=== PATIENT | female | born 1990 | race Caucasian/White ===

== ENCOUNTER 2018-06-23 14:24 | Emergency (ER) | payer SELFPAY ==
[2018-06-23 14:25] VITALS: BP 160/75; PULSE 94; RESP 18; TEMP 36.6; O2SAT 100; BMI 38.6
--- NOTE | 2018-06-23 14:50 | RAD_ITS ---
STUDY: X-RAY - RIGHT KNEE REASON FOR EXAM: Female, 27 years old. Status post fall 3 days ago TECHNIQUE: 4 view(s) of the knee. COMPARISON: None. FINDINGS: Normal visualized distal femur. Normal visualized proximal tibia and fibula. Normal proximal tibiofibular articulation. Normal medial femorotibial compartment. Normal lateral femorotibial compartment. Normal patellofemoral articulation. There is mild soft tissue swelling medial knee. RAD/Knee 4 or More Views IMPRESSION: Mild soft tissue swelling no visualized fracture or joint effusion. Electronically Signed: Mary Arriaza MD at 15:29 EST Tel , Service support ,
--- NOTE | 2018-06-23 14:54 | ED.DCSUM_ITS ---
- ER Visit Summary Date of Service: 06/23/18 Chief Complaint: Fall and right knee injury History of Present Illness: The patient is a 27 F no significant past medical history. States that 3 days ago on Sunday she missed a step while carrying her 40 pound child and landed awkwardly on her right knee. Since that time has had knee pain. Denies any prior knee surgery or any significant prior knee history. She denies any other injuries. Did not hit her head. She denies any neck or back pain. Physical Examination:. She is in no distress. H EENT exam atraumatic. Pupils round reactive light. No tenderness to her scalp. C-spine and back are nontender. Normal range of motion to her neck. Trachea midline. Lungs clear to auscultation bilaterally. Heart regular rhythm no murmur. Abdomen is soft and nontender. Normal bowel sounds no peritoneal signs. Chest wall nontender. Pelvic girdle intact. Both upper extremities and left lower extremity is unremarkable. Right knee has an abrasion. Minimal swelling to the patella. No gross bony deformity. Full flexion-extension of the right knee is intact. ACL, PCL, MCL and LCL are intact. No significant knee effusion. Calves the right lower legs are nontender. Ankle nontender. Normal DP pulse. His toes tendon is intact. Dorsi plantar flexion intact. Foot nontender. Normal touch sensation. Able to wiggle her toes. Neurologic exam normal. Test Results: Right knee x-ray 3 views show shows no acute abnormality. Emergency Department Course and Treatment: Repeat exam doing well. Treatment Plan: Ice and elevate. Motrin for pain. Disposition: Discharge Impression: Tripped and fell down steps Acute right knee contusion This note was generated with [employer] dictation software. It may contain incorrect words, spelling, and punctuation that were not noted in review of the chart prior to signing ED Disposition - Plan for ED Patient: Chief Complaint: Lower Extremity Injury Referrals: Suzanne Kohli NP-C [Primary Care Provider] -
[2018-06-23 15:08] VITALS: BP 144/102; PULSE 77; RESP 18; O2SAT 100
--- NOTE | 2018-06-23 15:15 | ED.DEP ---
ED Disposition - Plan for ED Patient: Disposition: Home or Assisted Living Chief Complaint: Lower Extremity Injury Instructions: ED Contusion Lower Ext Referrals: Suzanne Kohli, TREASURY ASSISTANT-C [Primary Care Provider] - 1 Week if not improving Additional Instructions: Ice and elevate right knee. Motrin for pain and swelling. Call follow-up with your primary care provider if not improving for further evaluation.
[2018-06-23 15:20] VITALS: BP 118/74; PULSE 62; RESP 15; O2SAT 99
== END 2018-06-23 15:20 | disposition home or self-care (01) ==
PROVIDERS: Emergency Provider Emergency Medicine; Family Provider Nurse Practitioner Family; PCP Nurse Practitioner Family
DX: S80.01XA Contusion of right knee, initial encounter (principal); W10.9XXA Fall (on) (from) unspecified stairs and steps, initial encounter; Y93.89 Activity, other specified
CPT/HCPCS: 73562; 73564; 99282

== ENCOUNTER 2018-07-03 18:27 | Emergency (ER) | payer SELFPAY ==
[2018-07-03 18:29] VITALS: BP 163/91; PULSE 127; PULSE 132; RESP 18; TEMP 39.2; O2SAT 99; BMI 38.5
--- NOTE | 2018-07-03 18:48 | ED.VISSUMM ---
- ER Visit Summary Date of Service: 07/03/18 Chief Complaint: Cough History of Present Illness: The patient is a 27 F with no primary care physician. She reports that she had a sore throat and cough for the past 2 weeks. States that it had improved and now she was just congested and had rhinorrhea. However, today she became acutely ill. She has a nonproductive cough. He has had a fever to 102.5 degrees. She said chills and diffuse myalgias Patient reports that she has no shortness of breath at rest. However, when she walks she is short of breath. She reports that she has abdominal pain from coughing. She has been nauseated, but has not vomited. She had diarrhea for the past 2 days 3-4 times per day. No blood in her stools or black tarry stools. She has an aching headache behind her temples that is 6 out of 10 severity. She has had similar headaches in the past. Physical Examination: Vitals: 102.5, 163/91, 127, 18, 99% room air which is not hypoxic. General: Well-nourished and well-developed. Head: Normocephalic atraumatic. Neck: Supple, no lymphadenopathy. No JVD. Nontender. Cardiovascular: Tachycardic regular rhythm. No murmurs. Respiratory: No respiratory distress. Clear to auscultation bilaterally. Abdominal: Soft, nontender, nondistended, normal bowel sounds. No guarding, rebound, or peritoneal signs. Back: Nontender. Extremities: Nontender, no edema. Skin: Normal color, no rash. Neurologic: Alert and oriented ?3. Cranial nerves II through XII are intact. Normal strength and sensation. Psych: Normal affect. Test Results: Chest x-ray shows a focal infiltrate or atelectasis in the right upper lobe. Influenza was negative. Emergency Department Course and Treatment: Patient refused an IV. She was treated with Tylenol, ibuprofen, Tessalon Perles p.o. She is resting comfortably. Treatment Plan: I discussed the x-ray findings with the patient. She was given a dose of Zithromax here. She will be discharged on Zithromax and Tessalon Perles.. [facility] if not improving. Return to the emergency department for any worsening symptoms. Disposition: To home in improved and stable condition. Impression: 1. Pneumonia, community-acquired. This note was generated with [employer] dictation software. It may contain incorrect words, spelling, and punctuation that were not noted in review of the chart prior to signing ED Disposition - Plan for ED Patient: Chief Complaint: Fever Instructions: ED Pneumonia Adult Prescriptions: Azithromycin [Zithromax] 250 mg PO DAILY #4 tablet Benzonatate [Tessalon Perle] 200 mg PO TID PRN PRN #20 cap PRN Reason: Cough Referrals: Suzanne Kohli ART OBJECTS SUPERVISOR-C [Primary Care Provider] - 1 Week
[2018-07-03] MEDS: Acetaminophen 500 MG Tablet 1000 MG PO (18:55)
[2018-07-03] MEDS: Benzonatate 100 MG Capsule 200 MG PO (18:55)
[2018-07-03] MEDS: Ibuprofen 400 MG Tablet 800 MG PO (18:55)
--- NOTE | 2018-07-03 19:00 | RAD_ITS ---
STUDY: X-RAY CHEST REASON FOR EXAM: Female, 27 years old. Cough fever and chills TECHNIQUE: PA and lateral COMPARISON: December 15, 2015 FINDINGS: Focal infiltrate or atelectasis in the right upper lobe There is no demonstrated pleural abnormality. Normal size heart. Normal mediastinum and laya. Normal visualized pulmonary arteries. Normal visualized aortic arch and descending thoracic aorta. Normal visualized thoracic spine. Normal visualized ribs, clavicles, and shoulders. There is no demonstrated abnormality of the visualized soft tissue structures of the upper abdomen. RAD/Chest PA and Lateral IMPRESSION: Focal consolidation in right upper lobe which may be consistent with pneumonia Electronically Signed: Wilfred Mooney MD at 20:17 EST , Service support ,
[2018-07-03] MEDS: Azithromycin 250 MG Tablet 500 MG PO (20:32)
[2018-07-03 20:35] VITALS: BP 143/87; PULSE 93; RESP 18; O2SAT 98
--- OUTSIDE RECORDS SUMMARY | 2018-08-29 04:33 | XMS RPT_ITS | Clinical Summary ---
:1990 Author Organization [facility], [facility] Address [address] [place] [address] Phone Care Team Providers Name Role Phone Norma Norwood RN Unavailable Unavailable Conditions or Problems Problem Name Problem Onset Status Entry Provider Comment Standard Annotate Code Date Date Description Palpitations 04913015 Active Tevin Chilel Palpitations (SNOMED 01/03 01/03 [place], [place]) Dizziness 621142080 Active Tevin Chilel Dizziness and and (SNOMED 01/03 01/03 [place], giddiness giddiness CT) Chest pain 82826312 Active Tevin Chilel Chest pain other (SNOMED 12/30 12/30 [place], CT) Snoring 43284740 Active Tevin Chilel Snoring (SNOMED 01/03 01/03 [place], CT) Abnormal R94.31 Active Tevin Chilel Abnormal electrocardi (ICD-10-CM 01/03 01/03 [place], electrocardiogra ogram [ECG] ) m [ECG] [EKG] [EKG] Body mass Z68.36 Active Tevin Chilel Body mass index index (BMI) (ICD-10-CM 01/03 01/03 [place], (BMI) 36.0-36.9, 36.0-36.9, ) adult adult Hypertension 40232184 Active Norma A Hypertensive (SNOMED 12/30 12/[address]) Family Z82.49 Active Norma A Family history history of (ICD-10-CM 12/30 12/30 Enma BEAR of ischemic ischemic ) heart disease heart and other disease and diseases of the other circulatory diseases of system the circulatory system Shortness of 361464789 Active Norma A Dyspnea breath (SNOMED 12/30 12/[address]) Chest pain, 92041077 Inactive Norma A Chest pain unspecified (SNOMED 12/30 12/[address]) Medications Medication Instructions Start Stop Generic Name NDC Provider Date Date TOPROL XL 25 MG One half tablet / METOPROLOL [id number] Tevin Chilel [id number] by mouth daily SUCCINATE MD Kj PROPRANOLOL HCL One tablet by / PROPRANOLOL HCL [id number] Tevin Chilel 10 MG TABS mouth twice 31 MD Kj daily PROPRANOLOL HCL 1 tab three / PROPRANOLOL HCL 18422556639 Tevin Chilel 10 MG TABS twice a day 31 MD Kj IBUPROFEN 400 One tablet by / IBUPROFEN 59751717890 Tevin J MG TABS mouth twice 31 MD Kj daily for 7 days HYDROXYZINE HCL Two tablets by / HYDROXYZINE HCL 10611885591 Norma A Enma 25 MG TABS mouth three RN times daily as needed anxiety HYDROXYZINE HCL Two tablets by HYDROXYZINE HCL 40451840197 Tevin J 25 MG TABS mouth three MD Kj times daily as needed anxiety IBUPROFEN 400 .11 / IBUPROFEN 18910039957 Elizabeth M MG TABS MARIANELA Haywood IBUPROFEN 400 .11 IBUPROFEN 43115233147 Tevin J MG TABS MD Kj LOSARTAN One tablet by / LOSARTAN 38152423209 Norma A Enma POTASSIUM 25 MG mouth daily 27 POTASSIUM RN TABS LOSARTAN One tablet by LOSARTAN 89366626638 Tevin Chilel POTASSIUM 25 MG mouth daily POTASSIUM MD Kj TABS STOVER COLON One capsule by / PROBIOTIC PRODUCT 95576989964 Norma A Enma HEALTH CAPS mouth daily RN STOVER COLON One capsule by PROBIOTIC PRODUCT 00468453200 Tevin Chilel HEALTH CAPS mouth daily MD Kj PROPRANOLOL HCL One tablet by PROPRANOLOL HCL 84517276265 Tevin Chilel 10 MG TABS mouth twice MD Kj daily MIRENA (52 MG) insertion as / LEVONORGESTREL 31689366151 Norma A Enma 20 MCG/24HR IUD directed 27 RN SERTRALINE HCL One tablet by / SERTRALINE HCL 91192915472 Norma A Enma 50 MG TABS mouth daily 27 RN ZOFRAN 4 MG Take 1 tablet / ONDANSETRON HCL 43770774102 Yeni E TABS PO q4h PO as 17 [place] needed STOVER COLON One tablet by / PROBIOTIC PRODUCT 93902193723 Yeni E HEALTH CAPS mouth daily 17 [place] VENTOLIN HFA INH 2 puffs q4h / ALBUTEROL SULFATE 97803432739 Yeni E 108 (90 Base) 17 [place] MCG/ACT AERS Medications Administered No information available. Allergies, Adverse Reactions, Alerts Allergy Name Reaction Description Start Date Severity Status Provider CEPHALEXIN terry Severe Active Norma James Enma RN Results Date Name Value Unit Range Flag Description Clinical Lists Update: Preload PLATELETS 301 10*3/mm3 platelet count RDW 13.7 % red blood cell distribution width MCHC RBC 32.5 g/dL mean corpuscular hemoglobin concentration, RBC MCH 26.9 pg mean corpuscular hemoglobin, RBC MCV 82.8 fL mean corpuscular volume, RBC HCT 42.0 % hematocrit, blood HGB 13.6 g/dL hemoglobin, blood RBC M/UL 5.07 10*6/uL H red blood count WBC BLOOD 9.2 10*9/L leukocyte (white blood cells) count, blood GFR AA >60 mL/min/1.73m2 Glomerular Filtration Rate GFRC >60 mL/min/1.73m2 Glomerular Filtration Rate Calculation A G RATIO 1.5 A/G RATIO GLOBULIN 3.1 globulin, serum SGOT (AST) 14 U/L L aspartate aminotransferase (SGOT), serum SGPT (ALT) 28 U/L alanine aminotransferase (SGPT), serum ALK PHOS 85 U/L alkaline phosphatase, serum BILI TOTAL 0.40 mg/dL bilirubin, serum, total ALBUMIN 4.5 g/dL albumin, serum PROTEIN, TOT 7.6 g/dL protein, total, serum GLUCOSE SER 81 mg/dL blood glucose CALCIUM 9.4 mg/dL calcium, serum BUN/CREAT 12.2 urea nitrogen/creatinine ratio, serum CREATININE 0.74 mg/dL creatinine, serum BUN 9 mg/dL urea nitrogen, blood ANION GAP 9.8 anion gap, serum CO2 27.2 mmol/L carbon dioxide, venous blood CHLORIDE 103 mmol/L chloride, serum POTASSIUM 3.9 mmol/L potassium, serum SODIUM 140 mmol/L sodium, serum Office Visit DIET CORPORATE SPECIALIST yes Dietary management education, guidance, and counseling (procedure) MEDS REVIEW Done Documentation of current medications (procedure) SMOK STATUS Former smoker Tobacco use [facility] Clinical Lists Update: Preload CARDEFECHO 65 % Left ventricular Ejection fraction Plan of Care Type Date Detail Appointment 01:15 PM Tevin Underwood MD, [address] [facility], [address], [place], [address], Pending order Follow Up Appt 1 year Pending order DJN Pending order Pulmonary Function Test - complete Pending order Pulmonary Function Test - complete Pending order Follow Up BP Check Pending order Follow Up Appt 1 month Pending order DJN Pending order Echocardiogram (complete) Pending order Stress Echocardiogram (treadmill) Procedures Code Procedure Name Date Entry Date FUA 1 year Follow Up Appt 1 year F/U DJN DJN F/U BP Follow Up BP Check Echo Echocardiogram (complete) SET Stress Echocardiogram (treadmill) FUA 1 month Follow Up Appt 1 month F/U DJN DJN FUA 1 month Follow Up Appt 1 month F/U DJN DJN Vital Signs Date Name Value Unit Description BMI (Body Mass Index) 37.31 kg/m2 Body Mass Index [Ratio] BP Diastolic 72 mm[Hg] blood pressure, diastolic - 8462-4 BP Systolic 118 mm[Hg] blood pressure, systolic - 8480-6 BSA (Body Surface Area) 1.97 body surface area Heart Rate 76 /min pulse rate E&M - 8867-4 Height 62.75 [in_us] height E&M - 8302-2 Respiratory Rate 18 /min respiratory rate E&M - 9279-1 Weight Measured 209 [lb_av] weight E&M - 3141-9
--- OUTSIDE RECORDS SUMMARY | 2018-08-29 04:33 | XMS RPT_ITS | Clinical Summary ---
:1990 Author Organization [facility], [facility] Address [address] [place] [address] Phone Care Team Providers Name Role Phone Crystal Valero Unavailable Unavailable Conditions or Problems Problem Name Problem Onset Status Entry Provider Comment Standard Annotate Code Date Date Description Palpitations 82418297 Active Tevin Chilel Palpitations (SNOMED 01/03 01/03 [place], [place]) Dizziness 919967062 Active Tevin Chilel Dizziness and and (SNOMED 01/03 01/03 [place], giddiness giddiness CT) Chest pain 47323756 Active Tevin Chilel Chest pain other (SNOMED 12/30 12/30 [place], CT) Snoring 80686189 Active Tevin Chilel Snoring (SNOMED 01/03 01/03 [place], CT) Abnormal R94.31 Active Tevin Chilel Abnormal electrocardi (ICD-10-CM 01/03 01/03 [place], electrocardiogra ogram [ECG] ) MD ma [ECG] [EKG] [EKG] Body mass Z68.36 Active Tevin Chilel Body mass index index (BMI) (ICD-10-CM 01/03 01/03 [place], (BMI) 36.0-36.9, 36.0-36.9, ) adult adult Hypertension 45090604 Active Norma A Hypertensive (SNOMED 12/30 12/[address]) Family Z82.49 Active Norma A Family history history of (ICD-10-CM 12/30 12/30 Enma RN of ischemic ischemic ) heart disease heart and other disease and diseases of the other circulatory diseases of system the circulatory system Shortness of 117809288 Active Norma A Dyspnea breath (SNOMED 12/30 12/[address]) Chest pain, 84874687 Inactive Norma A Chest pain unspecified (SNOMED 12/30 12/[address]) Medications Medication Instructions Start Stop Generic Name NDC Provider Date Date TOPROL XL 25 MG One half tablet / METOPROLOL [id number] Tevin Chilel [id number] by mouth daily SUCCINATE MD Kj PROPRANOLOL HCL One tablet by / PROPRANOLOL HCL 05138812732 Tevin Chilel 10 MG TABS mouth twice 31 MD Kj daily PROPRANOLOL HCL 1 tab three / PROPRANOLOL HCL 54628841693 Tevin Chilel 10 MG TABS twice a day 31 MD Kj IBUPROFEN 400 One tablet by / IBUPROFEN 30206734515 Tevin J MG TABS mouth twice 31 MD Kj daily for 7 days HYDROXYZINE HCL Two tablets by / HYDROXYZINE HCL 30349576105 Norma A Enma 25 MG TABS mouth three RN times daily as needed anxiety HYDROXYZINE HCL Two tablets by HYDROXYZINE HCL 40857303534 Tevin J 25 MG TABS mouth three MD Kj times daily as needed anxiety IBUPROFEN 400 .11 / IBUPROFEN 77663570546 Elizabeth M MG TABS MARIANELA [place] IBUPROFEN 400 .11 IBUPROFEN 56110684129 Tevin J MG TABS MD Kj LOSARTAN One tablet by / LOSARTAN 06744110536 Norma A Enma POTASSIUM 25 MG mouth daily 27 POTASSIUM RN TABS LOSARTAN One tablet by LOSARTAN 70089541985 Tevin Chilel POTASSIUM 25 MG mouth daily POTASSIUM MD Kj TABS STOVER COLON One capsule by / PROBIOTIC PRODUCT 44865320187 Norma A Enma HEALTH CAPS mouth daily RN STOVER COLON One capsule by PROBIOTIC PRODUCT 57312522538 Tevin Chilel HEALTH CAPS mouth daily MD Kj PROPRANOLOL HCL One tablet by PROPRANOLOL HCL 92105347347 Tevin Chilel 10 MG TABS mouth twice MD Kj daily MIRENA (52 MG) insertion as / LEVONORGESTREL 61111770486 Norma A Enma 20 MCG/24HR IUD directed 27 RN SERTRALINE HCL One tablet by / SERTRALINE HCL 69822836819 Norma A Enma 50 MG TABS mouth daily 27 RN ZOFRAN 4 MG Take 1 tablet / ONDANSETRON HCL 86420921498 Yeni E TABS PO q4h PO as 17 [place] needed STOVER COLON One tablet by / PROBIOTIC PRODUCT 19534060614 Yeni E HEALTH CAPS mouth daily 17 [place] VENTOLIN HFA INH 2 puffs q4h / ALBUTEROL SULFATE 70226886879 Yeni E 108 (90 Base) 17 [place] [...] 140 mmol/L sodium, serum Office Visit DIET POOL ATTENDANT yes Dietary management education, guidance, and counseling (procedure) MEDS REVIEW Done Documentation of current medications (procedure) SMOK STATUS Former smoker Tobacco use [facility] Clinical Lists Update: Preload CARDEFECHO 65 % Left ventricular Ejection fraction Plan of Care Type Date Detail Appointment 01:15 PM Tevin Underwood MD, [address] [facility], [address], [place], [address], Pending order Follow Up Appt 1 year [...]
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
== END 2018-07-03 20:35 | disposition home or self-care (01) ==
LOC: ED 19:14
PROVIDERS: Emergency Provider Emergency Medicine; Family Provider Nurse Practitioner Family; PCP Nurse Practitioner Family
DX: J18.9 Pneumonia, unspecified organism (principal); R51 Headache; R19.7 Diarrhea, unspecified; F98.8 Other specified behavioral and emotional disorders with onset usually occurring in childhood and adolescence
CPT/HCPCS: 71046; 87804; 99283

== ENCOUNTER → 2018-09-13 16:47 | Outpatient (CLI) | payer BC, SELFPAY ==
[2018-09-18 11:51] LABS: HPV Reflexed? NOT INDICATED
== END ==
PROVIDERS: Visit Provider Obstetrics & Gynecology
DX: Z12.4 Encounter for screening for malignant neoplasm of cervix (principal)
CPT/HCPCS: 87624; 88175; G0145

== ENCOUNTER 2018-11-05 08:52 | Emergency (ER) | payer SELFPAY ==
[2018-11-05 08:52] VITALS: BP 155/103; PULSE 83; RESP 15; TEMP 36.7; O2SAT 99; BMI 38.5
--- NOTE | 2018-11-05 09:04 | ED.DCSUM_ITS ---
- ER Visit Summary Date of Service: 11/05/18 Chief Complaint: Laceration History of Present Illness: The patient is a 28 F with a left forearm laceration. She cut her left proximal and ventral forearm on a bed frame just prior to arrival. No other injuries or complaints. Physical Examination: V-shaped laceration, 4 cm total. Subcutaneous tissue exposed. Neurovascular intact distally. No joint or orthopedic involvement. Test Results: None Emergency Department Course and Treatment: Tetanus updated. Wound was anesthetized, irrigated, explored. No foreign bodies or deep tissue involved. Wound was closed with simple interrupted sutures. Wound care instructions given. Follow-up right away for infection or any complications, otherwise follow-up with your doctor in about 14 days for suture removal. Treatment Plan: As above Disposition: Discharge Impression: 1. Left forearm laceration 4 7 m simple 2. Tetanus immunization This note was generated with [employer] dictation software. It may contain incorrect words, spelling, and punctuation that were not noted in review of the chart prior to signing
--- NOTE | 2018-11-05 09:04 | ED.DEP ---
ED Disposition - Plan for ED Patient: Instructions: ED Laceration All Additional Instructions: Follow-up with your doctor in 10-14 days for suture removal. Return right away for infection or signs of complications.
[2018-11-05] MEDS: Diphth,Pertuss(Acell),Tet Vac 0.5 ML Vial IM (09:34)
== END 2018-11-05 09:44 | disposition home or self-care (01) ==
LOC: ED 09:33
PROVIDERS: Emergency Provider Emergency Medicine
DX: S51.812A Laceration without foreign body of left forearm, initial encounter (principal); W26.8XXA Contact with other sharp object(s), not elsewhere classified, initial encounter; Y93.9 Activity, unspecified; Y92.9 Unspecified place or not applicable
CPT/HCPCS: 12002; 90471; 90715; 99284

== ENCOUNTER → 2019-01-21 16:19 | Outpatient (CLI) | payer MEDICAID, SELFPAY ==
[2019-01-21 20:37] LABS: Chlamydia Trachomatis by PCR Negative (Negative); Neisserai gonorrhoeae by PCR Negative (Negative); Probe Check PASS; Sample Adequacy Control PASS; Specimen Processing Control PASS
[2019-01-27 17:32] LABS: HPV Reflexed? NOT INDICATED
== END ==
PROVIDERS: Visit Provider Obstetrics & Gynecology
DX: Z12.4 Encounter for screening for malignant neoplasm of cervix (principal); Z11.3 Encounter for screening for infections with a predominantly sexual mode of transmission; Z34.81 Encounter for supervision of other normal pregnancy, first trimester
CPT/HCPCS: 87491; 87591; 88175; G0145

== ENCOUNTER 2019-01-31 14:36 | Emergency (ER) | payer MEDICAID, SELFPAY ==
[2019-01-31 14:38] VITALS: BP 152/97; PULSE 94; RESP 15; TEMP 37.3; O2SAT 97; BMI 39.6
--- NOTE | 2019-01-31 15:22 | ED.VISSUMM ---
- ER Visit Summary Date of Service: 01/31/19 Chief Complaint: Nausea and vomiting History of Present Illness: The patient is a 28 F who is 9 weeks who presents for 2 weeks of nausea and vomiting. Patient states it is gotten worse in the last 2 to 3 days. She is having increased fatigue and sleeping a lot. She has not had a bowel movement in 5 days. She had been switched to Zofran, which helped a couple days and then stopped working. She is waiting for a Phenergan prescription to get filled. She is currently on B6, docusate and famotidine. She is also taking Unisom at night. Patient has a history of hypertension and is not currently on anti-hypertensive medication. She does have some left-sided abdominal discomfort and had mild discomfort with urination today. No fever or other symptoms. Physical Examination: Vital signs: afebrile, blood pressure 152/97, no hypoxia on room air General: well nourished, well developed, in no distress Skin: warm, dry, no rash, no pallor HEENT: normocephalic and atraumatic; PERRL, EOMI, moist mucous membranes Cardiovascular: regular rate and rhythm without murmurs, no peripheral edema, 2+ pulses all distal extremities Respiratory: No increased work of breathing, lungs are clear to auscultation bilaterally, no rales, rhonchi or wheezing Abdominal: Abdomen is soft, nontender with normoactive bowel sounds, no guarding or rebound, no masses MSK: Moves all extremities, no deformities, normal strength Neuro: Awake and alert, oriented ?4. No facial droop, sensation and motor function intact and symmetric Test Results: Abnormal Lab Results 01/31/19 01/31/19 01/31/19 15:30 15:30 15:30 WBC 9.1 RBC 4.98 Hgb 13.9 Hct 41.1 MCV 82.5 MCH 27.9 MCHC 33.8 RDW 13.6 RDW Differential 40.6 Plt Count 282 MPV 9.1 Immature Gran % (Auto) 0.300 Neut % (Auto) 73.5 H Lymph % (Auto) 17.5 L [place] % (Auto) 7.9 Eos % (Auto) 0.6 Baso % (Auto) 0.2 Absolute Neuts (auto) 6.7 Absolute Lymphs (auto) 1.59 Total Counted Not Reportable Sodium 139 Potassium 3.8 Chloride 106 Carbon Dioxide 24.0 Anion Gap 9 BUN 6 L Creatinine 0.63 Estim Creat Clear Calc 105.15 Est GFR (MDRD) Af Amer 144 Est GFR (MDRD) Non-Af 119 BUN/Creatinine Ratio 9.5 L Glucose 79 Calcium 9.3 Magnesium 2.0 Total Bilirubin 0.40 AST 9 L ALT 21 Alkaline Phosphatase 67 Total Protein 7.6 Albumin 3.7 Globulin 3.9 Albumin/Globulin Ratio 0.9 Lipase 143 TSH 0.93 Urine Color Yellow Urine Clarity Sl. Cloudy Urine pH 7.0 Ur Specific [place] 1.010 Urine Protein 15 H Urine Glucose (UA) Normal Urine Ketones 150 H Urine Occult Blood Negative Urine Nitrite Negative Urine Bilirubin Negative Urine Urobilinogen Normal Ur Leukocyte Esterase 500 H Urine RBC 0 SEEN Urine WBC 5-10 SEEN Ur Squamous Epith Cells 50-100 SEEN Urine Bacteria 4+ Urine Mucus 1+ Medications Given Discontinued Medications Lactated Ringer's () 1,000 mls @ 999 mls/hr IV .Q1H1M STEVE Stop: 01/31/19 16:20 Last Admin: 01/31/19 15:31 Dose: 999 mls/hr Documented by: ROBERT Multivitamins 10 ml/ Sodium (Chloride) 510 mls @ 500 mls/hr IV .Q1H2M ONE Stop: 01/31/19 16:22 Last Admin: 01/31/19 16:50 Dose: 500 mls/hr Documented by: LESTER Lactated Ringer's () 1,000 mls @ 999 mls/hr IV .Q1H1M STEVE Stop: 01/31/19 19:00 Last Admin: 01/31/19 19:03 Dose: 999 mls/hr Documented by: ROBERT Promethazine HCl (Phenergan) 12.5 mg IV X1 ONE Stop: 01/31/19 15:20 Last Admin: 01/31/19 15:31 Dose: 12.5 mg Documented by: ROBERT Promethazine HCl (Phenergan) 12.5 mg IV X1 ONE Stop: 01/31/19 19:29 Last Admin: 01/31/19 19:35 Dose: 12.5 mg Documented by: JUAN Sodium Biphosphate/Sodium Phosphate (Fleet Enema) 1 bottle RECTAL X1 ONE Stop: 01/31/19 15:28 Last Admin: 01/31/19 16:21 Dose: 1 bottle Documented by: [email or web address] Emergency Department Course and Treatment: Patient presents with symptoms consistent with hyperemesis gravidarum. She is already had a confirmatory ultrasound showing an intrauterine gestation. Patient was given lactated Ringer's and multivitamin IV. Labs were performed that showed no electrolyte derangements. Patient had ketones in her urine. She had a significantly contaminated urine specimen with epithelial cells and did have bacteria present, suspicious for contamination from skin zain rather than true bacteriuria. Culture was sent so as not to give patient antibiotics orally that might make her even more nauseated. This plan was discussed with Dr. Conroy who agreed with the holding off on antibiotics until culture results are back. We also discussed treatment and disposition of patient, and she can be discharged from the ED if she has satisfactory improvement in her symptoms. Patient was given Phenergan twice for her nausea. She was given additional fluids to a total of 2 L. Patient was given a Fleet enema with a good bowel movement afterwards, and resolution of her constipation and abdominal pain. On reevaluation, patient was feeling much better. She was discharged home and is to return if any worsening of her condition. She was given a prescription for Phenergan for further treatment of nausea at home. Treatment Plan: [] Disposition: [] Impression: Hyperemesis gravidarum, constipation This note was generated with [employer] dictation software. It may contain incorrect words, spelling, and punctuation that were not noted in review of the chart prior to signing ED Disposition - Plan for ED Patient: Disposition: Home or Assisted Living Instructions: CONSTIPATION (Adult), Hyperemesis Gravidarum Prescriptions: proMETHazine tablet [Phenergan] 25 mg PO Q6H PRN PRN #20 tab PRN Reason: Nausea Prescription Printed Referrals: Care Physician,No Primary [Primary Care Provider] - Additional Instructions: Please follow-up with your OB physician within 1 week for another evaluation. Continue the anti-nausea medications that you have been prescribed. Drink plenty of fluids. Continue your stool softeners to help prevent constipation. If you have any worsening of your condition or any new concerning symptoms, please return immediately to the emergency department for another evaluation.
[2019-01-31] MEDS: Lactated Ringers 1,000 ML 999 ML IV ×2 (15:31→19:03)
[2019-01-31] MEDS: proMETHazine 25 MG/ML Syringe 12.5 MG IV ×2 (15:31→19:35)
[2019-01-31 15:40] LABS: Red Blood Cells-Urine 0 SEEN /hpf (0-5)
[2019-01-31 15:44] LABS: Absolute Lymphocyte Count 1.59 X10^3/ul (0.83-4.51); Absolute Neutrophil Count 6.7 X10^3/uL (2.0-7.7); Basophil# 0.02 X10^3/uL; Basophil% 0.2 % (0-1); Eosinophil# 0.05 X10^3/uL; Eosinophils% 0.6 % (0-5); Hematocrit 41.1 % (37-47); Hemoglobin 13.9 g/dl (12.0-15.0); Lymphocyte # 1.59 X10^3/ul (4.0); Lymphocyte % 17.5 % (19-41); Mean Corp Hgb Conc 33.8 g/gl (32-36); Mean Corpuscular Hgb 27.9 pg (27.0-32.0); Mean Corpuscular Volume 82.5 fL (81-99); Mean Platelet Vol. 9.1 fl (6.2-12.0); Monocyte# 0.72 X10^3/uL; Monocyte% 7.9 % (0-10); Neutrophil # 6.65 X10^3/uL (2.7-7.7); Neutrophil % 73.5 % (47-70); Platelet Count 282 K/mm3 (150-450); RBC Distribution Width CV 13.6 % (11.6-14.6); RBC Distribution Width SD 40.6 fl (35.1-43.9); Red Blood Count 4.98 M/mm3 (4.2-5.4); White Blood Count 9.1 K/mm3 (4.4-11.0)
[2019-01-31 15:45] LABS: POSITIVE COUNT NO; POSITIVE DIFFERENTIAL NO; POSITIVE MORPHOLOGY NO
[2019-01-31 15:47] LABS: Color, Urine Yellow (Yellow); Glucose, Dipstick Normal (Normal); Leukocyte Esterase-Dipstick 500 /ul (Negative); Nitrite-Dipstick Negative (Negative); Occult Blood-Urine Negative /ul (Negative); Protein-Dipstick 15 mg/dl (Negative); Urine Bilirubin Dipstick Negative (Negative); Urine Clarity Sl. Cloudy (Clear); Urine Urobilinogen Normal (Normal)
[2019-01-31 15:52] LABS: Ketone-Dipstick 150 mg/dl (Negative)
--- NOTE | 2019-01-31 15:53 | NURSING ---
dr brambila notified of ketone 150
[2019-01-31 15:56] LABS: Bacteria 4+ /hpf (None Seen); Mucous, Urine 1+ /hpf (<or=2+); Squamous Epithelial Cells - UA 50-100 SEEN /hpf (5-10); White Blood Cells 5-10 SEEN /hpf (0-5)
[2019-01-31 16:06] LABS: ALB/GLOB Ratio 0.9 RATIO (0.9-2.4); AST(SGOT) 9 U/L (15-37); Alanine Aminotransfer ALT/SGPT 21 U/L (13-56); Albumin, Serum 3.7 g/dL (3.2-5.0); Alkaline Phosphatase 67 U/L (45-117); Anion Gap 9 (5-15); BUN 6 mg/dL (7-18); BUN/Creat Ratio 9.5 RATIO (10-20); Calcium,Total 9.3 mg/dL (8.5-10.1); Chloride 106 mmol/L (98-107); Creatinine, Serum 0.63 mg/dL (0.55-1.02); EST Glomerular Filtration Rate 119 mL/min (>60); Est Glom Filt Rate - Afr Amer 144 mL/min (>60); Estimated Creatinine Clearance 105.15 ml/min; Globulin 3.9 g/dL (2.2-4.2); Glucose 79 mg/dL (74-106); Lipase 143 U/L (73-393); Potassium 3.8 mmol/L (3.5-5.1); Protein, Total 7.6 g/dL (6.4-8.2); Sodium Level 139 mmol/L (136-145); Thyroid Stim Hormone (TSH) 0.93 uIU/mL (0.358-3.74)
[2019-01-31] MEDS: Fleet Enema 1 ML RECTAL (16:21)
--- NOTE | 2019-01-31 16:21 | NURSING ---
DR VICKY LARKIN
[2019-01-31 17:32] VITALS: BP 133/71; PULSE 73; RESP 16
[2019-01-31 19:03] VITALS: BP 137/65; PULSE 82; RESP 16; O2SAT 100
[2019-01-31 21:04] VITALS: RESP 18
== END 2019-01-31 21:12 | disposition home or self-care (01) ==
PROVIDERS: Emergency Provider Emergency Medicine
DX: O21.0 Mild hyperemesis gravidarum (principal); O99.611 Diseases of the digestive system complicating pregnancy, first trimester; K59.00 Constipation, unspecified; Z3A.09 9 weeks gestation of pregnancy
CPT/HCPCS: 80053; 81001; 83690; 83735; 84443; 85025; 87086; 87088; 96361; 96365; 96366; 96375; 96376; 99283; J7030; J7040; J7120

== ENCOUNTER → 2019-02-05 10:16 | Outpatient (CLI) | payer MEDICAID, SELFPAY ==
[2019-01-31 14:38] VITALS: BMI 39.6
[2019-02-05 12:21] LABS: Color, Urine Yellow (Yellow); Glucose, Dipstick Normal (Normal); Ketone-Dipstick 5 mg/dl (Negative); Leukocyte Esterase-Dipstick 25 /ul (Negative); Nitrite-Dipstick Negative (Negative); Occult Blood-Urine Negative /ul (Negative); Protein-Dipstick Negative (Negative); Specific Gravity, Urine 1.015 (1.002-1.030); Urine Bilirubin Dipstick Negative (Negative); Urine Clarity Cloudy (Clear); Urine Urobilinogen Normal (Normal)
[2019-02-05 12:22] LABS: Absolute Lymphocyte Count 1.64 X10^3/ul (0.83-4.51); Absolute Neutrophil Count 4.7 X10^3/uL (2.0-7.7); Basophil# 0.01 X10^3/uL; Basophil% 0.1 % (0-1); Eosinophil# 0.05 X10^3/uL; Eosinophils% 0.7 % (0-5); Hematocrit 41.9 % (37-47); Lymphocyte # 1.64 X10^3/ul (4.0); Lymphocyte % 23.7 % (19-41); Mean Corp Hgb Conc 33.4 g/gl (32-36); Mean Corpuscular Hgb 28.2 pg (27.0-32.0); Mean Corpuscular Volume 84.5 fL (81-99); Mean Platelet Vol. 9.2 fl (6.2-12.0); Monocyte# 0.53 X10^3/uL; Monocyte% 7.6 % (0-10); Neutrophil # 4.69 X10^3/uL (2.7-7.7); Neutrophil % 67.8 % (47-70); Platelet Count 301 K/mm3 (150-450); RBC Distribution Width CV 13.5 % (11.6-14.6); RBC Distribution Width SD 41.2 fl (35.1-43.9); Red Blood Count 4.96 M/mm3 (4.2-5.4); White Blood Count 6.9 K/mm3 (4.4-11.0)
[2019-02-05 12:25] LABS: POSITIVE COUNT NO; POSITIVE DIFFERENTIAL NO; POSITIVE MORPHOLOGY NO
[2019-02-05 12:28] LABS: COTININE Drug Screen Negative (<200 ng/mL)
[2019-02-05 12:39] LABS: Thyroid Stim Hormone (TSH) 0.61 uIU/mL (0.358-3.74)
[2019-02-05 12:45] LABS: Amphetamine Urine VISTA NEGATIVE (<1000 ng/mL); Barbiturate Urine VISTA NEGATIVE (< 200 ng/mL); Benzodiazepine Urine VISTA NEGATIVE (< 200 ng/mL); Cocaine Urine VISTA NEGATIVE (< 300 ng/mL); Ecstacy Urine VISTA NEGATIVE (< 500 ng/mL); Methadone Urine VISTA NEGATIVE (< 300 ng/mL); PCP Urine VISTA NEGATIVE (< 25 ng/mL); THC Urine VISTA NEGATIVE (< 50 ng/mL); Vista UDS pH Range 7
[2019-02-05 13:23] LABS: HIV - WCH Non-Reactive (Nonreactive); Hepatitis B Surface Antigen Non-Reactive (Nonreactive); Hepatitis C Antibody Non-Reactive (Nonreactive); Rubella IgG 417.9 IU/mL; Vitamin D,25 Hydroxy 25.2 ng/mL (29.95-100.01)
[2019-02-07 05:48] LABS: Prenatal RPR NONREACTIVE (NONREACTIVE)
== END ==
PROVIDERS: Visit Provider Obstetrics & Gynecology
DX: Z34.81 Encounter for supervision of other normal pregnancy, first trimester (principal)
CPT/HCPCS: 36415; 80307; 81002; 82306; 84443; 85025; 86703; 86762; 86803; 87340

== ENCOUNTER 2019-03-14 19:02 | Emergency (ER) | payer MEDICAID, SELFPAY ==
[2019-03-14 19:02] VITALS: BP 141/80; PULSE 82; RESP 16; TEMP 37.1; O2SAT 99; BMI 38.7
--- NOTE | 2019-03-14 20:39 | ED.VIS.GEN ---
History of Present Illness Chief Complaint: Rash Informant: Patient Onset: Yesterday Context: Sudden Onset Timing: Continuous Quality: Pruritic rash Location: Volar side right upper extremity Current Severity: Mild Maximum Severity: Moderate Worsened by: Itching Relieved by: Nothing Associated Symptoms: No associated symptoms Narrative: Patient is a 28-year-old female sent from urgent care because of rash. She is 16 weeks gestation. She informed me that she would need blood work. Patient states she has been working outside. Her 's working outside. She has no other symptoms or complaint. Prior similar symptoms: No Recent Illness/Hospitalization: No - Past Medical History (1) No significant past medical history Status: Acute Past Medical History - Allergies and Home Meds Allergies/Adverse Reactions: Allergies cephalexin monohydrate [From Keflex] Allergy (Verified 03/14/19 19:05) Hives Primary Care Physician: Care Physician,No Primary [Primary Care Provider] - Prior records reviewed: Yes Surgical History: no surgical history Lives: Spouse/ Significant Other Smoking Status: Former smoker Alcohol: None Drugs: None Review of Systems General: Denies: Chills, Fever, Malaise, Subjective, Sweats, Weight loss, - Musculoskeletal: Denies: Myalgias, Arthralgias, Neck pain, Back pain, Swelling, Extremity Pain, -, - Skin: Reports: Rash. Denies: Abscess, Abrasions, Wounds Neurological: Denies: Headache, Weakness, Parasthesia, Numbness, -, - Hematologic: Denies: Easy bruising, Easy bleeding, Lymphadenopathy, -, - Allergy: Denies: Uticaria, Swelling of the mouth, Swelling of the tongue, -, - Physical Exam Vital Signs/Narrative: Vital Signs Temp Pulse Resp BP Pulse Ox 03/14/19 19:02 98.8 F 82 16 141/80 H 99 Inital Vital Signs reviewed: Yes General: Well nourished, Well developed, No Acute Distress Head: Normocephalic, Atraumatic Eyes: Perrl, EOMI ENT: Moist mucous membranes, No rhinorrhea Cardiovascular: Regular rate, Regular rhythm Respiratory: No distress Extremities: Nontender, No edema Skin: Normal color, No Trauma, Rash - His rash is consistent with a contact dermatitis. There is small areas of excoriation with fluid noted. The rash is erythematous. There is no lymphangitis, warmth, induration. Rash is located on the right upper extremity.. Negative for: Cyanosis, Diaphoresis, Jaundice Diagnostic/Tx/Re-eval - Medical Decision Making Patient area involvement is minimal. Will treat with topical agent versus systemic steroids. ED Disposition - Plan for ED Patient: Disposition: Home or Assisted Living Diagnosis: Contact dermatitis Instructions: Contact Dermatitis Prescriptions: Hydrocortisone 2.5% Crm [Hytone] 1 applic TOPICAL TID #1 tube Transmission Status: Pending to [facility]/pharmacy #[id number] Referrals: Care Physician,No Primary [Primary Care Provider] - Additional Instructions: Prescription was electronically transmitted to [facility] pharmacy in [place]
[2019-03-14 20:52] VITALS: BP 138/78; PULSE 82; RESP 16; O2SAT 97
== END 2019-03-14 20:52 | disposition home or self-care (01) ==
PROVIDERS: Emergency Provider Emergency Medicine
DX: O99.712 Diseases of the skin and subcutaneous tissue complicating pregnancy, second trimester (principal); L25.9 Unspecified contact dermatitis, unspecified cause; Z3A.16 16 weeks gestation of pregnancy; Z87.891 Personal history of nicotine dependence
CPT/HCPCS: 99282

== ENCOUNTER → 2019-04-02 10:21 | Outpatient (CLI) | payer MEDICAID, SELFPAY ==
[2019-03-14 19:02] VITALS: BMI 38.7
[2019-04-02 14:21] LABS: ALB/GLOB Ratio 0.8 RATIO (0.9-2.4); AST(SGOT) 11 U/L (15-37); Alanine Aminotransfer ALT/SGPT 17 U/L (13-56); Alkaline Phosphatase 69 U/L (45-117); Anion Gap 10 (5-15); BUN 4 mg/dL (7-18); BUN/Creat Ratio 6.1 RATIO (10-20); Chloride 108 mmol/L (98-107); Creatinine, Serum 0.65 mg/dL (0.55-1.02); EST Glomerular Filtration Rate 114 mL/min (>60); Est Glom Filt Rate - Afr Amer 138 mL/min (>60); Globulin 3.9 g/dL (2.2-4.2); Glucose 73 mg/dL (74-106); Potassium 3.6 mmol/L (3.5-5.1); Protein, Total 6.9 g/dL (6.4-8.2); Sodium Level 142 mmol/L (136-145)
== END ==
PROVIDERS: Visit Provider Obstetrics & Gynecology
DX: O10.412 Pre-existing secondary hypertension complicating pregnancy, second trimester (principal)
CPT/HCPCS: 36415; 80053

== ENCOUNTER → 2019-05-01 16:08 | Outpatient (CLI) | payer MEDICAID, SELFPAY ==
[2019-04-16 13:04] VITALS: BMI 38.7
[2019-05-01 17:40] LABS: Hematocrit 34.5 % (37-47); Mean Corp Hgb Conc 31.9 g/dL (32-36); Mean Corpuscular Hgb 28.4 pg (27.0-32.0); Mean Corpuscular Volume 88.9 fL (81-99); Mean Platelet Vol. 9.2 fl (6.2-12.0); Platelet Count 233 K/mm3 (150-450); RBC Distribution Width CV 14.3 % (11.6-14.6); RBC Distribution Width SD 45.5 fl (35.1-43.9); Red Blood Count 3.88 M/mm3 (4.2-5.4); White Blood Count 7.2 K/mm3 (4.4-11.0)
== END ==
PROVIDERS: Visit Provider Obstetrics & Gynecology
DX: O22.42 Hemorrhoids in pregnancy, second trimester (principal); Z3A.00 Weeks of gestation of pregnancy not specified
CPT/HCPCS: 36415; 85027

== ENCOUNTER 2019-05-19 09:05 | Outpatient (CLI) | payer MEDICAID, SELFPAY ==
[2019-05-04 10:45] VITALS: BMI 38.7
[2019-05-19 09:47] VITALS: BMI 40.2
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
== END 2019-05-19 12:26 | disposition home or self-care (01) ==
PROVIDERS: Referring Provider Obstetrics & Gynecology; Visit Provider Obstetrics & Gynecology
DX: Z04.1 Encounter for examination and observation following transport accident (principal); O26.892 Other specified pregnancy related conditions, second trimester; R10.9 Unspecified abdominal pain; O36.8120 Decreased fetal movements, second trimester, not applicable or unspecified; O43.892 Other placental disorders, second trimester; O16.2 Unspecified maternal hypertension, second trimester; Z3A.25 25 weeks gestation of pregnancy
CPT/HCPCS: 59025; 59050; 76818; 99218; G0378

== ENCOUNTER 2019-05-19 17:25 | Outpatient (CLI) | payer MEDICAID, SELFPAY ==
[2019-05-19 09:47] VITALS: BMI 40.2
[2019-05-19 18:48] VITALS: BMI 40.2
[2019-05-19] MEDS: Acetaminophen 500 MG Tablet PO (19:08)
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
== END 2019-05-19 19:30 | disposition home or self-care (01) ==
LOC: OBT 17:50 → WPOUT 17:50
PROVIDERS: Visit Provider Obstetrics & Gynecology
DX: Z04.1 Encounter for examination and observation following transport accident (principal); O26.892 Other specified pregnancy related conditions, second trimester; R10.9 Unspecified abdominal pain; O36.8120 Decreased fetal movements, second trimester, not applicable or unspecified; O43.892 Other placental disorders, second trimester; O16.2 Unspecified maternal hypertension, second trimester; Z3A.26 26 weeks gestation of pregnancy
CPT/HCPCS: 59025; 59050; 76818; 99218; G0378

== ENCOUNTER → 2019-05-23 15:10 | Outpatient (CLI) | payer MEDICAID, SELFPAY ==
[2019-05-19 18:48] VITALS: BMI 40.2
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
== END ==
PROVIDERS: Referring Provider Obstetrics & Gynecology; Visit Provider Obstetrics & Gynecology
DX: Z34.82 Encounter for supervision of other normal pregnancy, second trimester (principal)
CPT/HCPCS: 76819

== ENCOUNTER → 2019-05-28 09:37 | Outpatient (CLI) | payer MEDICAID, SELFPAY ==
[2019-05-19 18:48] VITALS: BMI 40.2
[2019-05-28 10:53] LABS: Hematocrit 35.5 % (37-47); Hemoglobin 11.5 g/dL (12.0-15.0); Mean Corp Hgb Conc 32.4 g/dL (32-36); Mean Corpuscular Hgb 29.3 pg (27.0-32.0); Mean Corpuscular Volume 90.3 fL (81-99); Mean Platelet Vol. 9.1 fl (6.2-12.0); Platelet Count 258 K/mm3 (150-450); RBC Distribution Width CV 14.1 % (11.6-14.6); Red Blood Count 3.93 M/mm3 (4.2-5.4); White Blood Count 7.9 K/mm3 (4.4-11.0)
[2019-05-28 10:55] LABS: Glucose Challenge Gest 1H 50g 120 mg/dL (70-140)
== END ==
PROVIDERS: Visit Provider Obstetrics & Gynecology
DX: Z34.82 Encounter for supervision of other normal pregnancy, second trimester (principal)
CPT/HCPCS: 36415; 82950; 85027

== ENCOUNTER 2019-06-01 09:25 | Outpatient (CLI) | payer MEDICAID, SELFPAY ==
[2019-06-01 09:47] VITALS: BMI 39.0
[2019-06-01 10:19] LABS: Hematocrit 35.1 % (37-47); Hemoglobin 11.5 g/dL (12.0-15.0); Mean Corp Hgb Conc 32.8 g/dL (32-36); Mean Corpuscular Hgb 29.1 pg (27.0-32.0); Mean Corpuscular Volume 88.9 fL (81-99); Mean Platelet Vol. 9.1 fl (6.2-12.0); Platelet Count 237 K/mm3 (150-450); RBC Distribution Width CV 13.9 % (11.6-14.6); RBC Distribution Width SD 45.2 fl (35.1-43.9); Red Blood Count 3.95 M/mm3 (4.2-5.4); White Blood Count 7.9 K/mm3 (4.4-11.0)
[2019-06-01 10:37] LABS: International Normalized Ratio 1.1; Prothrombin Time (Protime)PT. 13.5 SECONDS (11.7-14.9)
[2019-06-01 10:38] LABS: AST(SGOT) 9 U/L (15-37); Alanine Aminotransfer ALT/SGPT 10 U/L (13-56); Creatinine, Serum 0.44 mg/dL (0.55-1.02); EST Glomerular Filtration Rate 178 mL/min (>60); Est Glom Filt Rate - Afr Amer 215 mL/min (>60); Estimated Creatinine Clearance 157.46 ml/min; Partial Thromboplast Time 28.1 Seconds (24.1-36.2); Uric Acid 3.3 mg/dL (2.6-6.0)
[2019-06-01 10:47] LABS: Protein, Urine (Random) < 6.0 mg/dL (<11.9)
--- NOTE | 2019-06-04 09:20 | OB.TRI.NOTE ---
History of Present Illness Was patient seen by the physician?: No Reason For Visit: R/O LABOR Date of Service: 06/01/19 Final DUANE: 08/26/19 Gestational age: 27 Weeks and 5 Days History of Present Illness: This is a 28-year-old who presents with headache and nausea, vomiting. care has been uneventful. She has a history of hypertension at the end of her last . Allergies adhesive tape Allergy (Verified 05/19/19 19:04) Hives cephalexin monohydrate [From Keflex] Allergy (Verified 05/04/19 10:45) Hives - Pertinent Past Medical History Medical History: Past Medical History (Last Reviewed 05/04/19 @ 10:45 by Diana Fischer) H/O hemorrhoids Hypertension Surgical History: Past Surgical History (Last Reviewed 05/04/19 @ 10:45 by Diana Fischer) History of ankle surgery 2002 & 2007 Laboratory Studies: Laboratory Tests 06/01/19 06/01/19 06/01/19 Range/Units 10:05 10:05 10:05 WBC (4.4-11.0) K/mm3 RBC (4.2-5.4) M/mm3 Hgb (12.0-15.0) g/dL Hct (37-47) % MCV (81-99) fL MCH (27.0-32.0) pg MCHC (32-36) g/dL RDW Std Deviation (35.1-43.9) fl RDW Coeff of Latoya (11.6-14.6) % Plt Count (150-450) K/mm3 MPV (6.2-12.0) fl PT 13.5 (11.7-14.9) SECONDS INR 1.1 APTT 28.1 (24.1-36.2) Seconds Creatinine 0.44 L (0.55-1.02) mg/dL Estim Creat Clear Calc 157.46 ml/min Est GFR (MDRD) Af Amer 215 (>60) mL/min Est GFR (MDRD) Non-Af 178 (>60) mL/min Uric Acid 3.3 (2.6-6.0) mg/dL AST 9 L (15-37) U/L ALT 10 L (13-56) U/L U Random Total Protein < 6.0 (<11.9) mg/dL Urine Creatinine 20.00 (NO RANGE EST.) mg/dL Protein/Creatinin Ratio TNP 06/01/ Range/Units 10:05 WBC 7.9 (4.4-11.0) K/mm3 RBC 3.95 L (4.2-5.4) M/mm3 Hgb 11.5 L (12.0-15.0) g/dL Hct 35.1 L (37-47) % MCV 88.9 (81-99) fL MCH 29.1 (27.0-32.0) pg MCHC 32.8 (32-36) g/dL RDW Std Deviation 45.2 H (35.1-43.9) fl RDW Coeff of Latoya 13.9 (11.6-14.6) % Plt Count 237 (150-450) K/mm3 MPV 9.1 (6.2-12.0) fl PT (11.7-14.9) SECONDS INR APTT (24.1-36.2) Seconds Creatinine (0.55-1.02) mg/dL Estim Creat Clear Calc ml/min Est GFR (MDRD) Af Amer (>60) mL/min Est GFR (MDRD) Non-Af (>60) mL/min Uric Acid (2.6-6.0) mg/dL AST (15-37) U/L ALT (13-56) U/L U Random Total Protein (<11.9) mg/dL Urine Creatinine (NO RANGE EST.) mg/dL Protein/Creatinin Ratio NST - FHR Rate Baby A NST Reactive:: Appropriate for gestational age Impression/Plan 27+ week intrauterine with dehydration from nausea and vomiting likely causing a headache. PIH labs were normal and blood pressures were normal. Cervix was nonthreatening. Minimal to no contractions on monitor and reassuring heart tones. Patient was given a prescription for Zofran and instructed to hydrate and follow-up in the office in 1 to 2 days.
== END 2019-06-01 11:00 | disposition home or self-care (01) ==
LOC: WPOUT 09:37 → OBT 09:39
PROVIDERS: Visit Provider Advanced Practice Midwife
DX: O21.2 Late vomiting of pregnancy (principal); O26.892 Other specified pregnancy related conditions, second trimester; R51 Headache; Z3A.27 27 weeks gestation of pregnancy; Z87.59 Personal history of other complications of pregnancy, childbirth and the puerperium
CPT/HCPCS: 36415; 59025; 59050; 82565; 82570; 84156; 84450; 84460; 84550; 85027; 85610; 85730; 99218; G0378

== ENCOUNTER → 2019-06-12 14:08 | Outpatient (CLI) | payer MEDICAID, SELFPAY ==
[2019-06-01 09:47] VITALS: BMI 39.0
[2019-06-12 14:37] LABS: ROM Internal Control Test YES-OK TO RESULT pt. (Internal QC); ROM Patient Test Negative (Negative)
== END ==
PROVIDERS: Visit Provider Obstetrics & Gynecology
DX: Z34.83 Encounter for supervision of other normal pregnancy, third trimester (principal)
CPT/HCPCS: 84112

== ENCOUNTER → 2019-06-24 10:59 | Outpatient (CLI) | payer MEDICAID, SELFPAY ==
[2019-06-01 09:47] VITALS: BMI 39.0
[2019-06-24 14:09] LABS: Anion Gap 9 (5-15); BUN 3 mg/dL (7-18); BUN/Creat Ratio 6.8 RATIO (10-20); Calcium,Total 8.9 mg/dL (8.5-10.1); Chloride 110 mmol/L (98-107); Creatinine, Serum 0.44 mg/dL (0.55-1.02); EST Glomerular Filtration Rate 178 mL/min (>60); Est Glom Filt Rate - Afr Amer 215 mL/min (>60); Glucose 74 mg/dL (74-106); Potassium 3.8 mmol/L (3.5-5.1); Sodium Level 141 mmol/L (136-145)
== END ==
PROVIDERS: Referring Provider Obstetrics & Gynecology; Visit Provider Obstetrics & Gynecology
DX: R63.1 Polydipsia (principal)
CPT/HCPCS: 36415; 80048; 82306

== ENCOUNTER 2019-06-27 17:45 | Outpatient (CLI) | payer MEDICAID, SELFPAY ==
[2019-06-27 18:20] VITALS: BMI 41.3
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
== END 2019-06-27 19:42 | disposition home or self-care (01) ==
LOC: WPOUT 17:58 → WP 17:59
PROVIDERS: Visit Provider Obstetrics & Gynecology
DX: O26.899 Other specified pregnancy related conditions, unspecified trimester (principal); R10.30 Lower abdominal pain, unspecified; Z3A.00 Weeks of gestation of pregnancy not specified; W50.0XXA Accidental hit or strike by another person, initial encounter
CPT/HCPCS: 59025; 59050; 99218; G0378

== ENCOUNTER → 2019-06-29 15:20 | Outpatient (CLI) | payer MEDICAID, SELFPAY ==
[2019-06-29 09:14] VITALS: BMI 41.3
== END ==
PROVIDERS: Visit Provider Physician Assistant Medical
DX: J02.9 Acute pharyngitis, unspecified (principal)
CPT/HCPCS: 87070

== ENCOUNTER 2019-07-06 15:11 | Emergency (ER) | payer MEDICAID, SELFPAY ==
[2019-07-05 14:02] VITALS: BMI 41.3
[2019-07-06 15:12] VITALS: BP 161/94; PULSE 118; RESP 14; TEMP 36.7; O2SAT 96; BMI 41.1
--- NOTE | 2019-07-06 15:18 | EKG12_ITS ---
Test Reason : SOB
--- NOTE | 2019-07-06 15:28 | CT_ITS ---
STUDY: CTA CHEST REASON FOR EXAM: Female, 28 years old. Chest pain. patient RADIATION DOSAGE (If Supplied By Facility): CTDIvol = ( 11.43 ) mGy, DLP = ( 461.97 ) mGycm TECHNIQUE: The examination was performed with the intravenous administration of IV 100mL Isovue-370 100. Post-processing of the angiographic images was performed, with multiplanar reformation and 3D reconstruction. Individualized dose optimization techniques were used for this CT. COMPARISON: None. FINDINGS: Normal enhancement of the main pulmonary artery and right and left pulmonary arteries. Normal enhancement of the bilateral peripheral pulmonary arteries. There is no demonstrated pulmonary embolism. Normal thoracic aorta and visualized great vessels. There is no demonstrated aortic dissection. Normal heart and pericardium. Normal mediastinum. Normal hilar regions. Normal visualized trachea and bronchi. The lungs are under expanded. Normal pulmonary parenchyma. Normal pleura. Normal chest wall structures. Normal osseous structures. Normal visualized upper abdomen. CT/CTA Chest W/WO Contrast IMPRESSION: Normal CTA chest examination, without a demonstrated pulmonary embolism or arterial dissection. Electronically Signed: Aydin Burnham MD at 17:24 EST , Service support ,
[2019-07-06] MEDS: 0.9% Normal Saline 1,000 ML 150 ML IV (15:43)
[2019-07-06 15:49] LABS: Absolute Lymphocyte Count 1.63 X10^3/uL (0.83-4.51); Absolute Neutrophil Count 6.3 X10^3/uL (2.0-7.7); Basophil# 0.01 X10^3/uL; Basophil% 0.1 % (0-1); Eosinophil# 0.09 X10^3/uL; Hematocrit 35.5 % (37-47); Hemoglobin 11.7 g/dL (12.0-15.0); Lymphocyte # 1.63 X10^3/ul (4.0); Lymphocyte % 18.3 % (19-41); Mean Corpuscular Volume 88.1 fL (81-99); Mean Platelet Vol. 9.5 fl (6.2-12.0); Monocyte# 0.83 X10^3/uL; Monocyte% 9.3 % (0-10); NRBC Flagged by Analyzer 0 % (0-5); Neutrophil # 6.31 X10^3/uL (2.7-7.7); Neutrophil % 70.6 % (47-70); Platelet Count 251 K/mm3 (150-450); Red Blood Count 4.03 M/mm3 (4.2-5.4); White Blood Count 8.9 K/mm3 (4.4-11.0)
--- NOTE | 2019-07-06 15:58 | ED.VISSUMM ---
- ER Visit Summary Date of Service: 07/06/19 Chief Complaint: [Shortness of breath and chest pain] History of Present Illness: The patient is a 28 F [presents to the emergency department stating she has not been feeling well for the last 2 weeks. Patient was seen at urgent care x2 in the last time was a couple of days ago. Patient has been on amoxicillin for 5 days. Patient initially started with sinus congestion and pressure in her face. Patient has been coughing although the cough is been mostly nonproductive. Has had posttussive emesis. Patient complains of feeling very short of breath when lying flat. Patient is also 32 weeks . Patient states that her blood pressures been running a little bit on the high side and is been watching it but she is not currently being medicated for it. Patient's been feeling the child moved. She describes headaches off and on but they typically resolve on their own. She complains of exertional dyspnea with minimal activity. Patient is G2, P1. She denies feeling any contractions.] Physical Examination: [HEENT-PERRLA, EOMI. Cranial nerves II through XII grossly intact. TMs clear. Mucous membranes moist. No adenopathy. Cardiovascular-regular rate and rhythm without murmur or ectopy Lungs-clear to auscultation, chest wall stable without crepitus or subcu emphysema Abdomen-normoactive bowel sounds, soft, nontender, no rebound or rigidity, no peritoneal signs. Abdomen is gravid with fundal height approximately 12 cm above umbilicus. Extremities-intact ?4, normal range of motion, normal pulses, atraumatic] Test Results: [EKG obtained arrival shows sinus rhythm with a ventricular rate of 84 bpm with some nonspecific ST changes noted with some T wave flattening in V4 5 and V6. CBC with differential was unremarkable.] Chemistries were normal. LFTs were normal. CT of the chest was normal. Urinalysis was normal. With no evidence of protein in the urine. Emergency Department Course and Treatment: [Patient received a DuoNeb aerosol in the department. I discussed case with Dr. Lawrence Conroy who is on-call for [employer]. He has that I start patient on Aldomet 250 mg twice daily and she is to see their office within the next 1 to 2 days for repeat blood pressure. Patient advised to rest on her left side and she should be off work however patient states she does not currently work.] Patient to continue with her amoxicillin until finished. Treatment Plan: [Discharged home in stable condition. Patient advised to return if severe headache, increasing shortness of breath, or conditions worsen anyway.] Disposition: [Discharge] Impression: [Bronchitis [id number]] This note was generated with [employer] dictation software. It may contain incorrect words, spelling, and punctuation that were not noted in review of the chart prior to signing ED Disposition - Plan for ED Patient: Referrals: Care Physician,No Primary [Primary Care Provider] -
[2019-07-06 16:02] LABS: ALB/GLOB Ratio 0.7 RATIO (0.9-2.4); AST(SGOT) 9 U/L (15-37); Alanine Aminotransfer ALT/SGPT 9 U/L (13-56); Albumin, Serum 2.7 g/dL (3.2-5.0); Alkaline Phosphatase 105 U/L (45-117); Anion Gap 8 (5-15); BUN 3 mg/dL (7-18); BUN/Creat Ratio 6.6 RATIO (10-20); Calcium,Total 8.9 mg/dL (8.5-10.1); Chloride 112 mmol/L (98-107); Creatinine, Serum 0.45 mg/dL (0.55-1.02); EST Glomerular Filtration Rate 174 mL/min (>60); Est Glom Filt Rate - Afr Amer 210 mL/min (>60); Estimated Creatinine Clearance 147.21 ml/min; Globulin 3.9 g/dL (2.2-4.2); Glucose 81 mg/dL (74-106); Potassium 3.7 mmol/L (3.5-5.1); Protein, Total 6.6 g/dL (6.4-8.2); Sodium Level 141 mmol/L (136-145)
[2019-07-06 16:31] LABS: Bacteria 0 SEEN /hpf (None Seen); Mucous, Urine 0 SEEN /hpf (<or=2+); Red Blood Cells-Urine 0 SEEN /hpf (0-5); White Blood Cells 0 SEEN /hpf (0-5)
[2019-07-06 16:32] LABS: Color, Urine Yellow (Yellow); Glucose, Dipstick Normal (Normal); Ketone-Dipstick Negative (Negative); Leukocyte Esterase-Dipstick Negative /ul (Negative); Nitrite-Dipstick Negative (Negative); Occult Blood-Urine Negative /ul (Negative); Protein-Dipstick Negative (Negative); Urine Bilirubin Dipstick Negative (Negative); Urine Clarity Clear (Clear); Urine Urobilinogen Normal (Normal)
[2019-07-06 16:38] LABS: Squamous Epithelial Cells - UA 5-10 SEEN /hpf (5-10)
[2019-07-06 16:45] VITALS: BP 154/81
[2019-07-06] MEDS: Ipratropium/Albuterol Sulfate 3 ML AMPUL.NEB INHALATION (17:51)
--- NOTE | 2019-07-06 17:52 | ED.VISSUMM ---
- ER Visit Summary Date of Service: 07/06/19 Chief Complaint: [] History of Present Illness: The patient is a 28 F [] Physical Examination: [] Test Results: [] Emergency Department Course and Treatment: [] Treatment Plan: [] Disposition: [] Impression: [] This note was generated with [employer] dictation software. It may contain incorrect words, spelling, and punctuation that were not noted in review of the chart prior to signing ED Disposition - Plan for ED Patient: Referrals: Care Physician,No Primary [Primary Care Provider] -
--- NOTE | 2019-07-06 17:52 | ED.DEP ---
ED Disposition - Plan for ED Patient: Instructions: BRONCHITIS, Antiobiotic Treatment (Adult), HYPERTENSION, New (Begin Treatment) Referrals: Care Physician,No Primary [Primary Care Provider] - Stefania Joseph MD [STAFF PHYSICIAN] - 1-2 Days if not improving Additional Instructions: rest on your left side. Return if increasing headaches, shortness of breath, swelling or if condition worsens
[2019-07-06 17:53] VITALS: PULSE 87; RESP 18; O2SAT 100
--- NOTE | 2019-07-06 17:54 | ED.DEP ---
ED Disposition - Plan for ED Patient: Instructions: BRONCHITIS, Antiobiotic Treatment (Adult), HYPERTENSION, New (Begin Treatment) Prescriptions: Methyldopa [Aldomet] 250 mg PO BID #60 tab Prescription Printed Referrals: Stefania Joseph MD [STAFF PHYSICIAN] - 1-2 Days if not improving Care Physician,No Primary [Primary Care Provider] - Additional Instructions: rest on your left side. Return if increasing headaches, shortness of breath, swelling or if condition worsens
[2019-07-06 18:01] VITALS: BP 153/104; PULSE 89; RESP 16; O2SAT 99
== END 2019-07-06 18:08 | disposition home or self-care (01) ==
LOC: ED 15:32
PROVIDERS: Emergency Provider Emergency Medicine
DX: O99.513 Diseases of the respiratory system complicating pregnancy, third trimester (principal); J40 Bronchitis, not specified as acute or chronic; O13.3 Gestational [pregnancy-induced] hypertension without significant proteinuria, third trimester; Z3A.32 32 weeks gestation of pregnancy
CPT/HCPCS: 71275; 80053; 81001; 85025; 93005; 94640; 96360; 96361; 99284; J7030; Q9967; A4216

== ENCOUNTER → 2019-07-23 12:07 | Outpatient (CLI) | payer MEDICAID, SELFPAY ==
[2019-07-06 15:12] VITALS: BMI 41.1
[2019-07-23 12:34] LABS: Absolute Lymphocyte Count 1.59 X10^3/uL (0.83-4.51); Absolute Neutrophil Count 5.7 X10^3/uL (2.0-7.7); Basophil# 0.02 X10^3/uL; Basophil% 0.2 % (0-1); Eosinophil# 0.07 X10^3/uL; Eosinophils% 0.8 % (0-5); Hematocrit 38.6 % (37-47); Hemoglobin 12.3 g/dL (12.0-15.0); Lymphocyte # 1.59 X10^3/ul (4.0); Lymphocyte % 18.9 % (19-41); Mean Corp Hgb Conc 31.9 g/dL (32-36); Mean Corpuscular Hgb 28.3 pg (27.0-32.0); Mean Corpuscular Volume 88.9 fL (81-99); Mean Platelet Vol. 9.7 fl (6.2-12.0); Monocyte# 0.96 X10^3/uL; Monocyte% 11.4 % (0-10); NRBC Flagged by Analyzer 0 % (0-5); Neutrophil # 5.73 X10^3/uL (2.7-7.7); Platelet Count 249 K/mm3 (150-450); RBC Distribution Width CV 14.4 % (11.6-14.6); RBC Distribution Width SD 46.4 fl (35.1-43.9); Red Blood Count 4.34 M/mm3 (4.2-5.4); White Blood Count 8.4 K/mm3 (4.4-11.0)
[2019-07-23 13:05] LABS: International Normalized Ratio 1.1; Prothrombin Time (Protime)PT. 14.2 SECONDS (11.7-14.9)
[2019-07-23 13:06] LABS: Partial Thromboplast Time 29.1 Seconds (24.1-36.2)
[2019-07-23 13:09] LABS: ALB/GLOB Ratio 0.7 RATIO (0.9-2.4); AST(SGOT) 11 U/L (15-37); Alanine Aminotransfer ALT/SGPT 11 U/L (13-56); Albumin, Serum 2.8 g/dL (3.2-5.0); Alkaline Phosphatase 128 U/L (45-117); Anion Gap 10 (5-15); BUN 4 mg/dL (7-18); BUN/Creat Ratio 7.8 RATIO (10-20); Calcium,Total 8.9 mg/dL (8.5-10.1); Chloride 108 mmol/L (98-107); Creatinine, Serum 0.51 mg/dL (0.55-1.02); EST Glomerular Filtration Rate 150 mL/min (>60); Est Glom Filt Rate - Afr Amer 182 mL/min (>60); Globulin 4.1 g/dL (2.2-4.2); Glucose 67 mg/dL (74-106); Potassium 3.6 mmol/L (3.5-5.1); Protein, Total 6.9 g/dL (6.4-8.2); Sodium Level 140 mmol/L (136-145); Uric Acid 3.3 mg/dL (2.6-6.0)
== END ==
PROVIDERS: Visit Provider Obstetrics & Gynecology
DX: O13.3 Gestational [pregnancy-induced] hypertension without significant proteinuria, third trimester (principal); Z3A.00 Weeks of gestation of pregnancy not specified
CPT/HCPCS: 36415; 80053; 84550; 85025; 85610; 85730

== ENCOUNTER 2019-07-24 15:52 | Outpatient (CLI) | payer MEDICAID, SELFPAY ==
--- NOTE | 2019-07-24 15:54 | US_ITS ---
STUDY: OBSTETRICAL ULTRASOUND - BIOPHYSICAL PROFILE REASON FOR EXAM: Female, 29 years old well-being LMP: 11/19/2018 PRIOR ULTRASOUND: Prior study of 05/23/2019 TECHNIQUE: Transabdominal TECHNICAL QUALITY: Adequate. FINDINGS: There is a single intrauterine fetus. The fetus is in a cephalic presentation. There is demonstrated cardiac activity with a heart rate of 147 bpm. There is a normal amniotic fluid volume. The largest amniotic fluid pocket measures 3.0 cm. The amniotic fluid index (ROSALIO) is 14.7 cm. The placenta is anterior in location and is not low lying. There are several anechoic areas seen in the placenta, the largest measuring 2.6 x 2.0 x 2.3 cm. There are Grade 3 placental changes. Age by LMP: 35 weeks, 2 days. DUANE by LMP: 08/26/2019. Gender: Female BIOPHYSICAL PROFILE: Breathing Movements (FBM): 2 Gross Body Movements (GBM): 2 Tone (FT): 2 Amniotic Fluid Volume (AFV): 2 TOTAL SCORE: 8 / 8 US/Biophysical Profile IMPRESSION: Normal biophysical profile of 8/8. Anechoic regions seen in the placenta most likely representing venous lakes. Electronically Signed: Myles Zarco MD at 20:40 EST , Service support ,
[2019-07-24 16:59] VITALS: BMI 40.4
--- NOTE | 2019-07-24 22:31 | OB.TRI.NOTE ---
History of Present Illness Date of Service: 07/24/19 Was patient seen by the physician?: No Reason For Visit: MST / BPP Date of Service: 07/24/19 Final DUANE: 08/26/19 Final DUANE Source: US <20 weeks Gestational age: 35 Weeks and 2 Days History of Present Illness: Here for NST following BPP, repeat from yesterday's BPP in office Allergies adhesive tape Allergy (Verified 07/24/19 17:01) Hives cephalexin monohydrate [From Keflex] Allergy (Verified 07/24/19 17:01) Hives - Pertinent Past Medical History Medical History: Past Medical History (Last Reviewed 07/05/19 @ 13:28 by Alivia Andrade) H/O hemorrhoids SOB (shortness of breath) Hypertension Surgical History: Past Surgical History (Last Reviewed 07/05/19 @ 13:28 by Alivia Andrade) History of ankle surgery 2002 & 2007 Review of Systems Constitutional: Denies: Chills, Fever, Weight Change HEENT: Reports: Head Aches. Denies: Sinus Congestion, Sinus Drainage Cardiovascular: Denies: Chest Pain, Palpitations Respiratory: Denies: Cough, Shortness of breath at rest, Sputum production Gastrointestinal: Denies: Abdominal Pain, Nausea, Vomiting Genitourinary: Denies: Dysuria Musculoskeletal: Denies: Joint Pain, Joint Tenderness Skin: Denies: Rash, Wounds Neurological: Denies: Numbness, Tingling, Focal weakness Psychiatric: Denies: Anxiety, Depression, Homicidal Ideations, Suicidal Ideations Hematologic/ Lymphatic: Denies: Easy Bruising, Easy Bleeding NST - FHR Rate Baby A Baseline: 140 Variability:: Moderate Accelerations:: 15 x 15 Decelerations:: None NST Reactive:: Yes FHR Category:: Category I Uterine Activity:: no contractions noted during NST from 7302-2117 Impression/Plan A: at GA 35.2 BPP /8 with ROSALIO 14.7cm, Grade 3 placental changes on Ultrasound NST reactive with baseline 140, + accels, - decels, moderate variability. Category I tracing. Recorded from 7141-9943 P: Continue weekly BPP in office along with home BP checks. To call with worsening headache D/C home Attending MD to review ultrasound
== END 2019-07-24 16:35 | disposition home or self-care (01) ==
LOC: US 15:53 → WPOUT 16:40 → WP 16:41
PROVIDERS: Referring Provider Obstetrics & Gynecology; Visit Provider Obstetrics & Gynecology
DX: Z36.83 Encounter for fetal screening for congenital cardiac abnormalities (principal); O16.3 Unspecified maternal hypertension, third trimester; Z3A.35 35 weeks gestation of pregnancy
CPT/HCPCS: 59025; 59050; 76818; 99218; G0378

== ENCOUNTER 2019-07-27 20:45 | Observation (INO) | payer MEDICAID, SELFPAY ==
[2019-07-27 21:10] VITALS: BMI 41.4
[2019-07-27] MEDS: 0.9% Saline Lock 10 ML Syringe IV (21:37)
[2019-07-27] MEDS: Betamethasone/Betamethasone 30 MG/5 ML Vial 12 MG IM (21:47)
[2019-07-27 21:54] LABS: Hemoglobin 11.8 g/dL (12.0-15.0); Mean Corp Hgb Conc 32.8 g/dL (32-36); Mean Corpuscular Hgb 28.4 pg (27.0-32.0); Mean Corpuscular Volume 86.7 fL (81-99); Mean Platelet Vol. 9.8 fl (6.2-12.0); Platelet Count 247 K/mm3 (150-450); RBC Distribution Width CV 14.2 % (11.6-14.6); RBC Distribution Width SD 44.4 fl (35.1-43.9); Red Blood Count 4.15 M/mm3 (4.2-5.4); White Blood Count 8.6 K/mm3 (4.4-11.0)
[2019-07-27 22:13] LABS: ALB/GLOB Ratio 0.7 RATIO (0.9-2.4); AST(SGOT) 22 U/L (15-37); Alanine Aminotransfer ALT/SGPT 11 U/L (13-56); Albumin, Serum 2.8 g/dL (3.2-5.0); Alkaline Phosphatase 131 U/L (45-117); Anion Gap 8 (5-15); BUN 5 mg/dL (7-18); Calcium,Total 9.7 mg/dL (8.5-10.1); Chloride 110 mmol/L (98-107); Creatinine, Serum 0.56 mg/dL (0.55-1.02); EST Glomerular Filtration Rate 137 mL/min (>60); Est Glom Filt Rate - Afr Amer 166 mL/min (>60); Estimated Creatinine Clearance 117.24 ml/min; Globulin 3.9 g/dL (2.2-4.2); Glucose 96 mg/dL (74-106); LDH 216 U/L (84-246); Potassium 3.9 mmol/L (3.5-5.1); Protein, Total 6.7 g/dL (6.4-8.2); Protein, Urine (Random) < 6.0 mg/dL (<11.9); Sodium Level 140 mmol/L (136-145); Uric Acid 3.5 mg/dL (2.6-6.0)
[2019-07-27] MEDS: NIFEdipine 30 MG Tablet PO (22:43)
[2019-07-28] MEDS: 0.9% Saline Lock 10 ML Syringe IV (08:47)
--- NOTE | 2019-07-28 17:30 | OB.TRI.NOTE ---
- Problem List (1) 35 weeks gestation of Status: Acute History of Present Illness Date of Service: 07/27/19 Was patient seen by the physician?: No Reason For Visit: ELEVATED BLOOD PRESSURE Final DUANE: 08/26/19 Final DUANE Source: US <20 weeks Gestational age: 35 Weeks and 6 Days History of Present Illness: 29yo with hx cHTN presenting with elevated blood pressures. Reports intermittent headache now resolved. No vision changes or abdominal pain. +FM, no leaking of fluid or vaginal bleeding. Allergies adhesive tape Allergy (Verified 07/24/19 17:01) Hives cephalexin monohydrate [From Keflex] Allergy (Verified 07/24/19 17:01) Hives - Pertinent Past Medical History Medical History: Past Medical History (Last Reviewed 07/05/19 @ 13:28 by Alivia Andrade) H/O hemorrhoids SOB (shortness of breath) Hypertension Surgical History: Past Surgical History (Last Reviewed 07/05/19 @ 13:28 by Alivia Andrade) History of ankle surgery 2002 & 2007 Laboratory Studies: Laboratory Tests 07/27/19 07/27/19 07/27/19 Range/Units 21:31 21:31 21:31 WBC (4.4-11.0) K/mm3 RBC (4.2-5.4) M/mm3 Hgb (12.0-15.0) g/dL Hct (37-47) % MCV (81-99) fL MCH (27.0-32.0) pg MCHC (32-36) g/dL RDW Std Deviation (35.1-43.9) fl RDW Coeff of Latoya (11.6-14.6) % Plt Count (150-450) K/mm3 MPV (6.2-12.0) fl Sodium 140 (136-145) mmol/L Potassium 3.9 (3.5-5.1) mmol/L Chloride 110 H (98-107) mmol/L Carbon Dioxide 22.0 (21.0-32.0) mmol/L Anion Gap 8 (5-15) BUN 5 L (7-18) mg/dL Creatinine 0.56 (0.55-1.02) mg/dL Estim Creat Clear Calc 117.24 ml/min Est GFR (MDRD) Af Amer 166 (>60) mL/min Est GFR (MDRD) Non-Af 137 (>60) mL/min BUN/Creatinine Ratio 9.0 L (10-20) RATIO Glucose 96 (74-106) mg/dL Uric Acid 3.5 (2.6-6.0) mg/dL Calcium 9.7 (8.5-10.1) mg/dL Total Bilirubin 0.30 (0.20-1.00) mg/dL AST 22 (15-37) U/L ALT 11 L (13-56) U/L Alkaline Phosphatase 131 H (45-117) U/L Lactate Dehydrogenase 216 (84-246) U/L Total Protein 6.7 (6.4-8.2) g/dL Albumin 2.8 L (3.2-5.0) g/dL Globulin 3.9 (2.2-4.2) g/dL Albumin/Globulin Ratio 0.7 L (0.9-2.4) RATIO U Random Total Protein < 6.0 (<11.9) mg/dL Urine Creatinine 23.10 (NO RANGE EST.) mg/dL Protein/Creatinin Ratio TNP Blood Type O POSITIVE Antibody Screen NEGATIVE 07/27/19 Range/Units 21:31 WBC 8.6 (4.4-11.0) K/mm3 RBC 4.15 L (4.2-5.4) M/mm3 Hgb 11.8 L (12.0-15.0) g/dL Hct 36.0 L (37-47) % MCV 86.7 (81-99) fL MCH 28.4 (27.0-32.0) pg MCHC 32.8 (32-36) g/dL RDW Std Deviation 44.4 H (35.1-43.9) fl RDW Coeff of Latoya 14.2 (11.6-14.6) % Plt Count 247 (150-450) K/mm3 MPV 9.8 (6.2-12.0) fl Sodium (136-145) mmol/L Potassium (3.5-5.1) mmol/L Chloride (98-107) mmol/L Carbon Dioxide (21.0-32.0) mmol/L Anion Gap (5-15) BUN (7-18) mg/dL Creatinine (0.55-1.02) mg/dL Estim Creat Clear Calc ml/min Est GFR (MDRD) Af Amer (>60) mL/min Est GFR (MDRD) Non-Af (>60) mL/min BUN/Creatinine Ratio (10-20) RATIO Glucose (74-106) mg/dL Uric Acid (2.6-6.0) mg/dL Calcium (8.5-10.1) mg/dL Total Bilirubin (0.20-1.00) mg/dL AST (15-37) U/L ALT (13-56) U/L Alkaline Phosphatase (45-117) U/L Lactate Dehydrogenase (84-246) U/L Total Protein (6.4-8.2) g/dL Albumin (3.2-5.0) g/dL Globulin (2.2-4.2) g/dL Albumin/Globulin Ratio (0.9-2.4) RATIO U Random Total Protein (<11.9) mg/dL Urine Creatinine (NO RANGE EST.) mg/dL Protein/Creatinin Ratio Blood Type Antibody Screen Physical Exam General: Alert, Oriented x3, Cooperative, No apparent distress HEENT: Atraumatic, Normocephalic Cardiovascular: Regular rate, Regular Rhythm, Normal S1, Normal S2 Lungs: Clear to auscultation, Normal air movement Abdomen: Soft, Non Tender, Non-Distended, Gravid Extremities:: Other - trace b/l LE edema Neurological: Neuro grossly intact, - - trace b/l LE and UE DTRs, no clonus AUTO TIRE RECAPPER: Normal external genitalia Estimated gestational size: Appropriate for gestational size Presentation: Cephalic Cervix Dilation (cm): 1.5 Station: -3 Effacement (%): 50 NST - FHR Rate Baby A Baseline: 130 Variability:: Moderate Accelerations:: 15 x 15 Decelerations:: None NST Reactive:: Yes FHR Category:: Category I Uterine Activity:: 4/10 min Impression/Plan 29yo @ 35 5/7wga hx cHTN - r/o superimposed preeclampsia Cat I FHR Patient not feeling contractions -Betamethasone course -Rx Nifedipine xr 30mg -24h urine protein
[2019-07-28] MEDS: Acetaminophen 500 MG Tablet 1000 MG PO (17:31)
[2019-07-28] MEDS: Betamethasone/Betamethasone 30 MG/5 ML Vial 12 MG IM (21:12)
[2019-07-28] MEDS: NIFEdipine 30 MG Tablet PO (21:45)
[2019-07-28 23:18] LABS: 24 Hour Urine Protein 289.2 mg/24HR (<150 MG/24HR); 24HR. UA Prot. Total Volume 3250 mL; Urine Protein (24 Hour) 8.9 mg/dL (<11.9)
== END 2019-07-28 23:05 | disposition home or self-care (01) ==
LOC: WPOUT 21:09 → WP 21:09 → WPOUT 07-28 13:32 → WP 07-28 13:32
PROVIDERS: Admitting Provider Obstetrics & Gynecology; Referring Provider Obstetrics & Gynecology; Visit Provider Obstetrics & Gynecology
DX: O10.913 Unspecified pre-existing hypertension complicating pregnancy, third trimester (principal); Z3A.35 35 weeks gestation of pregnancy
CPT/HCPCS: 96372; 36415; 59025; 59050; 80053; 81050; 82570; 83615; 84156; 84550; 85027; 86850; 86900; 86901; 94760; 99218; A4216; G0378; J0702

== ENCOUNTER 2019-07-29 16:20 | Outpatient (CLI) | payer MEDICAID, SELFPAY ==
[2019-07-29 16:37] VITALS: BMI 41.5
--- NOTE | 2019-08-01 20:07 | OB.TRI.NOTE ---
History of Present Illness Date of Service: 07/29/19 Was patient seen by the physician?: No Reason For Visit: Visual changes Date of Service: 07/29/19 Final DUANE: 08/26/19 Final DUANE Source: US <20 weeks Gestational age: 36 Weeks and 0 Days History of Present Illness: This is a late entry for 07/29/2019 at 1700 Pt c/o visual disturbance; d/t increased BP in office, to L&D for evaluatio Allergies adhesive tape Allergy (Verified 07/29/19 16:39) Hives cephalexin monohydrate [From Keflex] Allergy (Verified 07/29/19 16:39) Hives - Pertinent Past Medical History Medical History: Past Medical History (Last Reviewed 07/05/19 @ 13:28 by Alivia Andrade) H/O hemorrhoids SOB (shortness of breath) Hypertension Surgical History: Past Surgical History (Last Reviewed 07/05/19 @ 13:28 by Alivia Andrade) History of ankle surgery 2002 & 2007 NST - FHR Rate Baby A Baseline: 140 Variability:: Moderate Accelerations:: 15 x 15 Decelerations:: None NST Reactive:: Yes, Appropriate for gestational age FHR Category:: Category I - Reactive, reassuring NST followd by sleep cycle Uterine Activity:: Q 2-3, pt not feeling Impression/Plan Impression: 29yo at 36w0d gestation by 11w1d US Elevated blood pressures Cat 1 FHTs Plan: d/w Dr. David MANN home w/FM counts, increased rest, low stimulation environment RTO next scheduled PNV for BP check
== END 2019-07-29 17:35 | disposition home or self-care (01) ==
LOC: WPOUT 16:31 → WP 16:33
PROVIDERS: Referring Provider Advanced Practice Midwife; Visit Provider Advanced Practice Midwife
DX: O16.3 Unspecified maternal hypertension, third trimester (principal); Z3A.36 36 weeks gestation of pregnancy
CPT/HCPCS: 59025; 59050; 99218; G0378

== ENCOUNTER → 2019-07-31 16:41 | Outpatient (CLI) | payer MEDICAID, SELFPAY ==
[2019-07-29 16:37] VITALS: BMI 41.5
== END ==
PROVIDERS: Referring Provider Advanced Practice Midwife; Visit Provider Advanced Practice Midwife
DX: Z36.85 Encounter for antenatal screening for Streptococcus B (principal)
CPT/HCPCS: 87081

== ENCOUNTER 2019-08-08 07:00 | Inpatient (IN) | payer MEDICAID, SELFPAY ==
[2019-08-08 07:27] VITALS: BMI 42.5
--- NOTE | 2019-08-08 08:44 | HP.PCM_ITS ---
- Problem List (1) 37 weeks gestation of Status: Acute (2) Hypertension affecting in third trimester Status: Acute Comment: cHTN History Date of Admission: 08/08/19 Final DUANE: 08/26/19 Final DUANE Source: US <20 weeks Gestational age: 37 Weeks and 3 Days History of this : This is a 29 year-old, G [2], P [1], at 37 3/7 weeks gestational age hx chronic hypertension scheduled for induction of labor. No complaints. Medical History: Medical History (Last Reviewed 08/08/19 @ 08:47 by Stefania Joseph MD) H/O hemorrhoids Z87.19 SOB (shortness of breath) R06.02 Hypertension I10 Surgical History: Surgical History (Last Reviewed 08/08/19 @ 08:47 by Stefania Joseph MD) History of ankle surgery Z98.890 2002 & 2007 Allergies adhesive tape Allergy (Verified 07/29/19 16:39) Hives cephalexin monohydrate [From Keflex] Allergy (Verified 07/29/19 16:39) Hives Home Medications: Home Medications Pnv No.95/Ferrous Fum/Folic AC [ Caplet] 1 ea PO DAILY 03/14/19 Famotidine 20 mg PO BID 07/06/19 Vit D3/Folic Acid/B2/B6/B12 [Folgard Tablet] 1 tab PO DAILY 07/24/19 Labetalol HCl 100 mg PO BID 08/08/19 Nifedipine [Nifedipine ER] 30 mg PO DAILY 08/08/19 Smoking Status: Former smoker Alcohol: None Number of Fetus(es): 1 NST - FHR Rate Baby A Baseline: 145 Variability:: Moderate Accelerations:: 15 x 15 Decelerations:: None NST Reactive:: Yes FHR Category:: Category I Uterine Activity:: 3/10 min History Past Pregnancies: Past Pregnancies Delivery Date GA/ Weeks Route Wt Infant Sex Anesthesia Delivery Location Provider FOB 04/2013 37.6 7lb3.7oz (3280g) M Epidural [facility] [place] Labs: Mom's Problem List Problem Status Onset Code 37 weeks gestation of Acute Z3A.37 Hypertension affecting in third trimester Acute O16.3 Mom's Labs & Results 08/08/19 08/08/19 08/08/19 08:50 08:50 08:50 WBC 8.9 RBC 4.19 L Hgb 12.0 Hct 37.4 MCV 89.3 MCH 28.6 MCHC 32.1 RDW Std Deviation 46.4 H RDW Coeff of Latoya 14.6 Plt Count 250 MPV 9.9 Immature Gran % (Auto) 0.700 Neut % (Auto) 72.7 H Lymph % (Auto) 14.9 L Esmeralda % (Auto) 10.9 H Eos % (Auto) 0.6 Baso % (Auto) 0.2 Absolute Neuts (auto) 6.5 Absolute Lymphs (auto) 1.32 Nucleated RBC % 0 Sodium 141 Potassium 4.1 Chloride 112 H Carbon Dioxide 22.0 Anion Gap 7 BUN 8 Creatinine 0.56 Estim Creat Clear Calc 117.24 Est GFR (MDRD) Af Amer 166 Est GFR (MDRD) Non-Af 137 BUN/Creatinine Ratio 14.4 Glucose 75 Uric Acid 3.9 Calcium 9.3 Total Bilirubin 0.20 AST 13 L ALT 16 Alkaline Phosphatase 130 H Total Protein 6.6 Albumin 2.6 L Globulin 4.0 Albumin/Globulin Ratio 0.6 L Blood Type O POSITIVE Antibody Screen NEGATIVE Course Did the patient receive Yes care? Labs Blood Type: O RH: POSITIVE RPR/VDRL/Syphilis Nonreactive Rubella status Immune HbSAg Negative Date Done: 02/05/19 Chlamydia Negative Gonorrhea Negative HIV/AIDS Non-Reactive Group B Strep: Negative Current Obstetrical History Gestational Diabetes No Incompetent Cervix No Infertility No IUGR No Macrosomia No Hypertension/Pre-eclampsia Yes Placenta Previa/Abruption No PTL/PROM No Uterine anomaly No Oligohydramnios No Polyhydramnios No Multiple gestation No Past Medical History Asthma No Diabetes No Hypertension Yes Heart disease No Mitral valve prolapse No Neurologic/Seizure disorder/ No Migraines Kidney disease No Liver disease No Varicosities No Clotting disorders/Hx of DVT No Thyroid Dysfunction No Other medical diseases No Psychiatric disorders Yes: anxiety Major trauma No Abnormal PAP smear Yes Sleep apnea No Mammogram in the last 2 years No Social History Marital Status: Alleged father [employer] Hx Smoking Yes Smoking Status Former smoker Expected Delivery Method: Spontaneous Vaginal Describe any other labor & delivery plans:: Cytotec Number of Visits: 20 Review of Systems Constitutional: Reports: Fatigue HEENT: Denies: Visual Changes Cardiovascular: Denies: Chest Pain Respiratory: Denies: Shortness of Breath Gastrointestinal: Denies: Abdominal Pain, Nausea, Vomiting Gynecological: Denies: Vaginal bleeding Neurological: Denies: Headaches Comment: Fetus active Physical Exam Vitals: AVSS General: Alert, Oriented x3, Cooperative, No apparent distress HEENT: Atraumatic, Normocephalic Cardiovascular: Regular rate, Regular Rhythm, Normal S1, Normal S2 Lungs: Clear to auscultation, Normal air movement Abdomen: Soft, Non Tender, Non-Distended, Gravid Extremities:: Other - trace LE edema Neurological: Neuro grossly intact, - - + 2 b/l achilles DTRs, +1 patellar VISITOR SERVICES SPECIALIST: Normal external genitalia Estimated gestational size: Appropriate for gestational size Presentation: Cephalic Cervix Dilation (cm): 2 Station: -3 Effacement (%): 50 - posterior and moderate Assessment/Plan All Active Problems (Last Reviewed 08/08/19 @ 08:47 by Stefania Joseph MD) 35 weeks gestation of (Acute) 37 weeks gestation of (Acute) Hypertension affecting in third trimester (Acute) Bronchitis (Acute) URI, acute (Acute) Dysfunction of both eustachian tubes (Acute) Earache symptoms in both ears (Acute) No significant past medical history (Acute) Atypical chest pain (Acute) This is a 29 year-old, G [2], P 1[], at 37 3/7 weeks gestational age with cHTN -Misoprostol for unfavorable cervix -Continuous monitoring -Continue PO Labetalol and d/c Nifedipine given c/o significant fatigue -Reviewed delivery indications, labor/delivery r/b/i/a. Consents reviewed and signed. LARC declined. -Desires tubal if section.
[2019-08-08] MEDS: Lactated Ringers 1,000 ML 125 ML IV ×2 (08:56→15:40)
[2019-08-08 09:07] LABS: Absolute Lymphocyte Count 1.32 X10^3/uL (0.83-4.51); Absolute Neutrophil Count 6.5 X10^3/uL (2.0-7.7); Basophil# 0.02 X10^3/uL; Basophil% 0.2 % (0-1); Eosinophil# 0.05 X10^3/uL; Eosinophils% 0.6 % (0-5); Hematocrit 37.4 % (37-47); Lymphocyte # 1.32 X10^3/ul (4.0); Lymphocyte % 14.9 % (19-41); Mean Corp Hgb Conc 32.1 g/dL (32-36); Mean Corpuscular Hgb 28.6 pg (27.0-32.0); Mean Corpuscular Volume 89.3 fL (81-99); Mean Platelet Vol. 9.9 fl (6.2-12.0); Monocyte# 0.97 X10^3/uL; Monocyte% 10.9 % (0-10); NRBC Flagged by Analyzer 0 % (0-5); Neutrophil # 6.45 X10^3/uL (2.7-7.7); Neutrophil % 72.7 % (47-70); Platelet Count 250 K/mm3 (150-450); RBC Distribution Width CV 14.6 % (11.6-14.6); RBC Distribution Width SD 46.4 fl (35.1-43.9); Red Blood Count 4.19 M/mm3 (4.2-5.4); White Blood Count 8.9 K/mm3 (4.4-11.0)
[2019-08-08] MEDS: miSOPROStol 25 MCG TABLET VAGINAL (09:18)
[2019-08-08 09:23] LABS: ALB/GLOB Ratio 0.6 RATIO (0.9-2.4); AST(SGOT) 13 U/L (15-37); Alanine Aminotransfer ALT/SGPT 16 U/L (13-56); Albumin, Serum 2.6 g/dL (3.2-5.0); Alkaline Phosphatase 130 U/L (45-117); Anion Gap 7 (5-15); BUN 8 mg/dL (7-18); BUN/Creat Ratio 14.4 RATIO (10-20); Calcium,Total 9.3 mg/dL (8.5-10.1); Chloride 112 mmol/L (98-107); Creatinine, Serum 0.56 mg/dL (0.55-1.02); EST Glomerular Filtration Rate 137 mL/min (>60); Est Glom Filt Rate - Afr Amer 166 mL/min (>60); Estimated Creatinine Clearance 117.24 ml/min; Glucose 75 mg/dL (74-106); Potassium 4.1 mmol/L (3.5-5.1); Protein, Total 6.6 g/dL (6.4-8.2); Sodium Level 141 mmol/L (136-145); Uric Acid 3.9 mg/dL (2.6-6.0)
[2019-08-08] MEDS: Labetalol 100 MG Tablet PO ×2 (11:35→22:32)
[2019-08-08] MEDS: Oxytocin 30 units/NS 500 ml 30 UNITS/500 ML IV.SOLN IV (13:55)
--- NOTE | 2019-08-08 17:31 | PCM.PN.BLA ---
Progress Note LABOR PROGRESS NOTE Doing well. No complaints. Contractions have fizzled out. AVSS GEN - NAD, AAO x 3 FHR 135, moderate variability, + accelerations, no decelerations. TOCO difficulty tracing contractions SVE 2/50/-2, ANTERIOR, moderate A/P: 29yo @ 37 3/7wga, IOL for cHTN s/p misoprosol x 1, on pitocin, Cat I FHR -BPs normal to mildly elevated, continue Labetalol PO -Amniotomy performed with clear fluid -IUPC placed -Continue pitocin as tolerated by mother and fetus
[2019-08-08] MEDS: Lactated Ringers 500 ML 999 ML IV ×3 (18:36→22:55)
[2019-08-08] MEDS: fentaNYL-bupivacaine (epidural) 100 ML BAG EPIDURAL (19:25)
[2019-08-08] MEDS: Oxytocin 30 units/NS 500 ml 30 UNITS/500 ML IV.SOLN 334 UNITS IV (23:24)
--- NOTE | 2019-08-08 23:32 | PCM.OPRPT ---
Problem List (1) 37 weeks gestation of Status: Acute (2) Hypertension affecting in third trimester Status: Acute Comment: cHTN Report of Operation Date of Procedure: 08/08/19 Pre-Operative Diagnosis: 37 3/7wga, chronic hypertension Post-Operative Diagnosis: 37 3/7wga, chronic hypertension Surgery/Procedure Performed:: Vacuum assisted vaginal delivery Vaginal Delivery Maternal Presentation: Medically Indicated Induction Method of Induction: Pitocin, Amniotomy, Cytotec Amniotic Membrane Rupture Type: Artificial Rupture of Membrane time: 1723h 08/08/18 Amniotic Fluid Description: Clear, - - terminal meconium Final DUANE: 08/26/19 Final DUANE Source: US <20 weeks Gestational age: 37 Weeks and 3 Days doctor who attended delivery (if requested by OB): Eneida Arroyo Date of Procedure: 08/08/19 Pre-Operative Diagnosis: 37 3/7wga, chronic hypertension Post-Operative Diagnosis: 37 3/7wga, chronic hypertension Surgery/ Procedure Performed: Vacuum Assisted Vaginal Delivery Anesthesiologist: Rojelio Ovalle Type of Anesthesia: Epidural Description of Procedure: Patient was FD/0 station on my arrival. She pushed with fair maternal effort to +1 station with Category II FHR. Maternal repositioning was employed with little improvement. Pitocin was discontinued, O2 supplementation administered with resolution of prolonged decelerations however variable decelerations persisted. I advised vacuum assisted delivery with review of indications, r/b/a. head was in OA, the Kiwi cap applied to the flexion point at 2310h. Two pulls were performed over approximately 3 minutes with delivery of the head in direct OA. The vacuum was released and Kiwi cap removed. Infant mouth and nares were bulb suctioned at the perineum. The anterior shoulder then posterior shoulders delivered slowly due to waning maternal effort followed by delivery of a female . The infant was placed on the maternal abdomen and further attended by nursery personnel. The cord was clamped and cut after approximately 30 seconds and the further assessed by the Pediatric Hospitalist. Cord gases and cord blood specimen were obtained. The placenta delivered spontaneously and appeared intact on inspection. The perineum was intact. Sponge and needle counts were correct x 2. Presentation: Vertex Placental Delivery Description: Spontaneous Placenta Disposition: [facility] Cord Vessel Description: 3 Vessels Nuchal Cord Compression: Without compression Cord Gases drawn per routine: ABG, VBG Cord Entanglement: None Drain: Mckeon to straight drain Estimated Blood Loss: 250 ml A gender: Female Episiotomy Description: None Laceration: None Medications given after delivery: IV Pitocin Complications: None
--- NOTE | 2019-08-08 23:44 | PLAC_PTH ---
PATIENT: FALLON LUCIO LOC: WP U#:[id number] AGE/SX: 29/F ROOM: WP003 RE08/08/[address]: Dr. Stefania Mcpherson MD : 1990 BED: 1 DIS: 08/10/2019 SPEC #: [id number] RECD: 08/09/19 01:26 STATUS: GRAZYNA REAndrade #: [id number] RAMIRO: 08/08/19 23:[address]: Stefania Bartlett DEPT: SURGICAL PATHOLOGY RECD BY: Dae Bauer ENTERED: 08/11/19 07:55 SP TYPE: PLACENTA OTHR DR: No Primary Care Phys Tissues: Placenta, NOS Procedures: Surgery Specimen Level V HEADER OPERATION: Vaginal delivery PRE-OP DIAGNOSIS: CHTN, induction of labor, 37wga TISSUE SUBMITTED: Placenta MICROSCOPIC DIAGNOSIS Placenta: Placental disc - third trimester placenta (585 gm). - Focal area of intraparenchymal hemorrhage (1.5 cm in greatest dimension). Membranes - no pathologic diagnosis. Umbilical cord - three blood vessels and no pathologic diagnosis. SJ:vilma 08/12/19 MICROSCOPIC DESCRIPTION Slides are reviewed. GROSS DESCRIPTION SPECIMEN: PLACENTA / CLINICAL INFORMATION: A. Weight: 4.011 kg B. Gestational Age: 37 weeks C. Sex: Female PLACENTAL WEIGHT (POST FIXATION): 585 gm PLACENTAL DIMENSIONS: 16 x 16 x 4 cm PLACENTAL SHAPE: Usual ovoid PLACENTAL WEIGHT FOR GESTATIONAL AGE: > 99th percentile MEMBRANES - Present A. Insertion: Marginal B. Site of rupture from edge: 4.5 cm from edge of placental disc C. Color of membrane: Alfonso-weston D. Abnormalities: None UMBILICAL CORD - Present A. Color: Alfonso-weston B. Insertion: Eccentric C. Length: 34 cm D. Diameter: 1.2 cm E. Number of vessels: Three F. Abnormalities: None PLACENTAL DISC - Present A. Color of surface: Alfonso-weston B. surface abnormalities: None C. Maternal cotyledons: Intact with minimal tears D. Attached retro placental clot: No clot E. Cut surface: Dark red and spongy F. Lesions: Serial sections reveal a focus of intraparenchymal hemorrhage measuring 1.5 cm in greatest dimension. G. Separate clot: 10 x 8 x 1 cm SECTIONS SUBMITTED: 1. Umbilical cord ( end inked) 2. Membrane roll 3. Placental disc, and maternal surfaces, area of hemorrhage 4. Placental disc, and maternal surfaces 5. Placental disc, and maternal surfaces AM:vilma 08/11/19 TC:5 CPT: 16098
[2019-08-09] MEDS: 0.9% Saline Lock 10 ML Syringe IV (02:02)
[2019-08-09 03:13] VITALS: BP 136/79; PULSE 98; RESP 18; TEMP 37.1
--- NOTE | 2019-08-09 08:43 | PN.OBGYN_ITS ---
Patient Problems: Active and Suspected Problems (Last Reviewed 08/08/19 @ 08:47 by Stefania Mcpherson MD) 37 weeks gestation of (Acute) Hypertension affecting in third trimester (Acute) cHTN Subjective: No issues overnight. Denies heavy lochia, headache, vision changes. nursing well. Objective: AVSS - Physical Exam Vitals/I&O's: Vital Signs Temp Pulse Resp BP 98.8 F 98 18 136/79 H 08/09/19 03:13 08/09/19 03:13 08/09/19 03:13 08/09/19 03:13 Oxygen Delivery Method Room Air Weight: 105.4 kg Body Mass Index (BMI) 42.5 Finger Stick Blood Glucose 83 Intake and Output for Last 24 Hours 08/07/19 08/08/19 08/09/19 23:59 23:59 23:59 Intake Total 3483.55 / 3483.55 327.43 / 327.43 Output Total 1200 / 1200 Balance 3483.55 / 3483.55 -872.57 / -872.57 General: Alert, Oriented x3, Cooperative, No apparent distress HEENT: Atraumatic, Normocephalic Lungs: Clear to auscultation, Normal air movement Cardiovascular: Regular rate, Regular Rhythm, Normal S1, Normal S2 Abdomen: Soft, Non Tender, Non-Distended, - - Fundus firm and nontender at umbilicus, lochia moderate Extremities: No edema, No Calf Tenderness Neurological: Neuro grossly intact Psych/Mental Status: Normal Affect, Appropriate, Alert and oriented to time, place, person, mood and affect Laboratory Results 08/08/19 08:50: Sodium 141, Potassium 4.1, Chloride 112 H, Carbon Dioxide 22.0, Anion Gap 7, BUN 8, Creatinine 0.56, Estim Creat Clear Calc 117.24, Est GFR (MDRD) Af Amer 166, Est GFR (MDRD) Non-Af 137, BUN/Creatinine Ratio 14.4, Glucose 75, Uric Acid 3.9, Calcium 9.3, Total Bilirubin 0.20, AST 13 L, ALT 16, Alkaline Phosphatase 130 H, Total Protein 6.6, Albumin 2.6 L, Globulin 4.0, Albumin/Globulin Ratio 0.6 L 08/08/19 08:50: WBC 8.9, RBC 4.19 L, Hgb 12.0, Hct 37.4, MCV 89.3, MCH 28.6, MCHC 32.1, RDW Std Deviation 46.4 H, RDW Coeff of Lato[place] 14.6, Plt Count 250, MPV 9.9, Immature Gran % (Auto) 0.700, Neut % (Auto) 72.7 H, Lymph % (Auto) 14.9 L, [place] % (Auto) 10.9 H, Eos % (Auto) 0.6, Baso % (Auto) 0.2, Absolute Neuts (auto) 6.5, Absolute Lymphs (auto) 1.32, Nucleated RBC % 0 08/08/19 08:50: Blood Type O POSITIVE, Antibody Screen NEGATIVE Current Medications Acetaminophen (Tylenol) 325 - 650 mg PO Q4H PRN PRN PRN Reason: Pain Score 1-3/10 Bisacodyl (Dulcolax) 10 mg RECTAL UD PRN PRN Reason: If no BM Dibucaine (Dibucaine) 1 applic TOPICAL TID PRN PRN; Protocol PRN Reason: Discomfort Famotidine (Pepcid) 20 mg PO BID [facility] Hydrocortisone (Hytone) 1 applic TOPICAL TID PRN PRN; Protocol PRN Reason: Discomfort Ibuprofen (Motrin) 600 mg PO Q6H PRN PRN PRN Reason: Pain Score 1-3/10 Labetalol HCl (Trandate) 100 mg PO BID [facility] Last Admin: 08/08/19 22:32 Dose: 100 mg Documented by: Methylergonovine Maleate (Methergine) 0.2 mg IM X1 PRN PRN Reason: Excess bleeding/uterine atony Ondansetron HCl (Zofran) 4 mg IV Q4H PRN PRN PRN Reason: NAUSEA Multivit/Folic Acid/Iron (Prenatabs Fa) 1 tablet PO DAILY@1200 [facility] Senna/Docusate Sodium (Senokot-S, Aparna-Colace) 1 - 2 tablet PO DAILY PRN PRN PRN Reason: Constipation Simethicone (Mylicon) 80 mg PO PCHS PRN PRN Reason: Indigestion/Stomach pain Sodium Chloride () 5 - 15 ml IV UD PRN PRN Reason: SALINE FLUSH Last Admin: 08/09/19 02:02 Dose: 10 ml Documented by: Medical Necessity - Tobacco Use Smoking Status: Former smoker Assessment/Plan All Active Problems (Last Reviewed 08/08/19 @ 08:47 by Stefania Joseph MD) 37 weeks gestation of (Acute) Hypertension affecting in third trimester (Acute) 35 weeks gestation of (Resolved) Atypical chest pain (Resolved) Bronchitis (Resolved) Dysfunction of both eustachian tubes (Resolved) Earache symptoms in both ears (Resolved) No significant past medical history (Resolved) URI, acute (Resolved) This is a 29 year-old, PPD#1 s/p doing well. BPs well controlled, continue Labetalol O positive Routine care
[2019-08-09] MEDS: Labetalol 100 MG Tablet PO ×2 (09:42→21:45)
[2019-08-09] MEDS: Ibuprofen 600 MG Tablet PO (09:42)
[2019-08-09 09:45] VITALS: BP 131/80; PULSE 81; RESP 20; TEMP 36.5
[2019-08-09] MEDS: Senna/Docusate Sodium 1 Tablet PO (13:09)
[2019-08-09] MEDS: Prenatal Vits Tablet 1 TABLET PO (13:09)
[2019-08-09 13:10] VITALS: BP 135/75; PULSE 87; TEMP 36.4
[2019-08-09] MEDS: Acetaminophen 325 MG Tablet PO ×2 (13:10→21:45)
[2019-08-09 16:30] VITALS: BP 136/78; PULSE 78; TEMP 36.7
[2019-08-09 21:04] VITALS: BP 140/84; PULSE 89; RESP 16; TEMP 36.6
[2019-08-09] MEDS: Famotidine 20 MG Tablet PO (21:45)
[2019-08-10 02:00] VITALS: BP 121/64; PULSE 83; RESP 16; TEMP 36.6
--- NOTE | 2019-08-10 06:24 | PCM.PN.OB ---
Patient Problems: Active and Suspected Problems (Last Reviewed 08/08/19 @ 08:47 by Stefania Joseph MD) 37 weeks gestation of (Acute) Hypertension affecting in third trimester (Acute) cHTN Subjective: Reports was transferred to the [facility] yesterday afternoon for low blood sugars. Malena is in good spirits. She denies headache, vision changes. Denies heavy lochia. Objective: AVSS - Physical Exam Vitals/I&O's: Vital Signs Temp Pulse Resp BP 97.8 F 83 16 121/64 H 08/10/19 02:00 08/10/19 02:00 08/10/19 02:00 08/10/19 02:00 Oxygen Delivery Method Room Air Weight: 105.4 kg Body Mass Index (BMI) 42.5 Finger Stick Blood Glucose 83 Intake and Output for Last 24 Hours 08/08/19 08/09/19 08/10/19 23:59 23:59 23:59 Intake Total 3483.55 / 3483.55 327.43 / 327.43 Output Total 1200 / 1200 Balance 3483.55 / 3483.55 -872.57 / -872.57 General: Alert, Oriented x3, Cooperative, No apparent distress HEENT: Atraumatic, Normocephalic Lungs: Clear to auscultation, Normal air movement Cardiovascular: Regular rate, Regular Rhythm, Normal S1, Normal S2 Abdomen: Soft, Non Tender, Non-Distended, - - Fundus firm and nontender at 1 fw below umbilicus Extremities: No edema, No Calf Tenderness Neurological: Neuro grossly intact Psych/Mental Status: Normal Affect, Appropriate, Alert and oriented to time, place, person, mood and affect Current Medications Acetaminophen (Tylenol) 325 - 650 mg PO Q4H PRN PRN PRN Reason: Pain Score 1-3/10 Last Admin: 08/09/19 21:45 Dose: 650 mg Documented by: Bisacodyl (Dulcolax) 10 mg RECTAL UD PRN PRN Reason: If no BM Dibucaine (Dibucaine) 1 applic TOPICAL TID PRN PRN; Protocol PRN Reason: Discomfort Famotidine (Pepcid) 20 mg PO BID [facility] Last Admin: 08/09/19 21:45 Dose: 20 mg Documented by: Hydrocortisone (Hytone) 1 applic TOPICAL TID PRN PRN; Protocol PRN Reason: Discomfort Ibuprofen (Motrin) 600 mg PO Q6H PRN PRN PRN Reason: Pain Score 1-3/10 Last Admin: 08/09/19 09:42 Dose: 600 mg Documented by: Labetalol HCl (Trandate) 100 mg PO BID [facility] Last Admin: 08/09/19 21:45 Dose: 100 mg Documented by: Methylergonovine Maleate (Methergine) 0.2 mg IM X1 PRN PRN Reason: Excess bleeding/uterine atony Ondansetron HCl (Zofran) 4 mg IV Q4H PRN PRN PRN Reason: NAUSEA Multivit/Folic Acid/Iron (Prenatabs Fa) 1 tablet PO DAILY@1200 [facility] Last Admin: 08/09/19 13:09 Dose: 1 tablet Documented by: Senna/Docusate Sodium (Senokot-S, Aparna-Colace) 1 - 2 tablet PO DAILY PRN PRN PRN Reason: Constipation Last Admin: 08/09/19 13:09 Dose: 2 tablet Documented by: Simethicone (Mylicon) 80 mg PO HS PRN PRN Reason: Indigestion/Stomach pain Sodium Chloride () 5 - 15 ml IV UD PRN PRN Reason: SALINE FLUSH Last Admin: 08/09/19 02:02 Dose: 10 ml Documented by: Medical Necessity - Tobacco Use Smoking Status: Former smoker Assessment/Plan All Active Problems (Last Reviewed 08/08/19 @ 08:47 by Stefania Joseph MD) 37 weeks gestation of (Acute) Hypertension affecting in third trimester (Acute) 35 weeks gestation of (Resolved) Atypical chest pain (Resolved) Bronchitis (Resolved) Dysfunction of both eustachian tubes (Resolved) Earache symptoms in both ears (Resolved) No significant past medical history (Resolved) URI, acute (Resolved) This is a 29 year-old, PPD#2 s/p doing well. BPs well controlled, continue Labetalol O positive Routine care d/c to hotel status today
--- NOTE | 2019-08-10 06:28 | DCINST_ITS ---
Discharge Diet: No Restrictions Discharge Activity: Return to Normal Activity May resume sexual activity in: 6 weeks Lifting Restrictions: 20 lb Additional Instructions: If you experience any of the following, contact your healthcare provider. * Bleeding that soaks a pad every hour for 2 hours * Fever 100.4 or higher * Unrelieved incision or abdominal pain * Swelling, redness, discharge or bleeding from your incision or episiotomy site * Your incision begins to separate * Problems urinating (including inability to urinate or burning while urinating). * Visual changes * Severe headache * Flu-like symptoms * Pain or redness in one of both of your breasts * Pain, warmth, tenderness or swelling in your legs, especially the calf area * Frequent nausea and vomiting * Symptoms of depression or anxiety If you experience any of the following, call 911 or go to the nearest Emergency Room. * Chest pain * Problems breathing * Seizure activity * Partial or complete paralysis of a body part, slurred speech, weakness or drooping of the face, or a sudden inability to walk or hold your balance Allergies/Adverse Reactions: Allergies adhesive tape Allergy (Verified 07/29/19 16:39) Hives cephalexin monohydrate [From Keflex] Allergy (Verified 07/29/19 16:39) Hives Medications to take at Discharge Famotidine 20 mg PO BID 07/06/19 Vit D3/Folic Acid/B2/B6/B12 [Folgard Tablet] 1 tab PO DAILY 07/24/19 Labetalol HCl 100 mg PO BID 08/08/19 Ibuprofen [Motrin] 600 mg PO TID PRN #30 tab 08/10/19 The following prescriptions were given: Ibuprofen [Motrin] 600 mg PO TID PRN #30 tab PRN Reason: Pain Or Fever Transmission Status: Pending to [facility]/pharmacy #[id number] Please Follow Up With: Stefania Joseph MD When: 1-2 weeks Primary Care Physician: Care Physician,No Primary [Primary Care Provider] - Test Results: Test results from this visit will be discussed in further detail at your follow- up appointment, if applicable.
--- NOTE | 2019-08-10 06:28 | PCM.DCVAG ---
Discharge Diet: No Restrictions Discharge Activity: Return to Normal Activity May resume sexual activity in: 6 weeks Lifting Restrictions: 20 lb Additional Instructions: If you experience any of the following, contact your healthcare provider. Bleeding that soaks a pad every hour for 2 hours Fever 100.4 or higher Unrelieved incision or abdominal pain Swelling, redness, discharge or bleeding from your incision or episiotomy site Your incision begins to separate Problems urinating (including inability to urinate or burning while urinating). Visual changes Severe headache Flu-like symptoms Pain or redness in one of both of your breasts Pain, warmth, tenderness or swelling in your legs, especially the calf area Frequent nausea and vomiting Symptoms of depression or anxiety If you experience any of the following, call 911 or go to the nearest Emergency Room. Chest pain Problems breathing Seizure activity Partial or complete paralysis of a body part, slurred speech, weakness or drooping of the face, or a sudden inability to walk or hold your balance Allergies/Adverse Reactions: Allergies adhesive tape Allergy (Verified 07/29/19 16:39) Hives cephalexin monohydrate [From Keflex] Allergy (Verified 07/29/19 16:39) Hives Medications to take at Discharge Famotidine 20 mg PO BID 07/06/19 Vit D3/Folic Acid/B2/B6/B12 [Folgard Tablet] 1 tab PO DAILY 07/24/19 Labetalol HCl 100 mg PO BID 08/08/19 Ibuprofen [Motrin] 600 mg PO TID PRN #30 tab 08/10/19 The following prescriptions were given: Ibuprofen [Motrin] 600 mg PO TID PRN #30 tab PRN Reason: Pain Or Fever Transmission Status: Pending to [facility]/pharmacy #[id number] Please Follow Up With: Stefania Joseph MD When: 1-2 weeks Primary Care Physician: Care Physician,No Primary [Primary Care Provider] - Test Results: Test results from this visit will be discussed in further detail at your follow-up appointment, if applicable.
[2019-08-10 09:00] VITALS: BP 137/91; PULSE 106; RESP 16; TEMP 36.3
[2019-08-10] MEDS: Famotidine 20 MG Tablet PO (09:25)
[2019-08-10] MEDS: Labetalol 100 MG Tablet PO (09:25)
[2019-08-10] MEDS: Prenatal Vits Tablet 1 TABLET PO (09:26)
[2019-08-10] MEDS: Acetaminophen 325 MG Tablet PO (09:28)
[2019-08-10 14:01] VITALS: BP 143/86; PULSE 84; RESP 16; TEMP 36.3
[2019-08-12 15:33] LABS: Pathology Specimen OB SEE PATHOLOGY REPORT
== END 2019-08-10 15:25 | disposition home or self-care (01) | DRG 560 ==
PROVIDERS: Admitting Provider Obstetrics & Gynecology; Referring Provider Obstetrics & Gynecology; Visit Provider Obstetrics & Gynecology
DX: O76 Abnormality in fetal heart rate and rhythm complicating labor and delivery (principal); O16.4 Unspecified maternal hypertension, complicating childbirth; O34.40 Maternal care for other abnormalities of cervix, unspecified trimester; O77.0 Labor and delivery complicated by meconium in amniotic fluid; Z3A.37 37 weeks gestation of pregnancy; Z37.0 Single live birth; Z87.891 Personal history of nicotine dependence
CPT/HCPCS: 59025; 59050; 80053; 84550; 85025; 86850; 86900; 86901; 88307; 99218; J7120; A4216; G0378

== ENCOUNTER → 2019-08-23 17:48 | Outpatient (CLI) | payer MEDICAID, SELFPAY ==
[2019-08-23 10:36] VITALS: BMI 42.5
[2019-08-23 17:51] LABS: Bacteria 0 SEEN /hpf (None Seen); Mucous, Urine 0 SEEN /hpf (<or=2+); Red Blood Cells-Urine 0 SEEN /hpf (0-5)
[2019-08-23 18:20] LABS: Color, Urine Yellow (Yellow); Glucose, Dipstick Normal (Normal); Ketone-Dipstick Negative (Negative); Leukocyte Esterase-Dipstick 500 /ul (Negative); Nitrite-Dipstick Negative (Negative); Occult Blood-Urine Negative /ul (Negative); Protein-Dipstick Negative (Negative); Specific Gravity, Urine 1.005 (1.002-1.030); Urine Bilirubin Dipstick Negative (Negative); Urine Clarity Sl. Cloudy (Clear); Urine Urobilinogen Normal (Normal)
[2019-08-23 18:39] LABS: Squamous Epithelial Cells - UA 0-5 SEEN /hpf (5-10); White Blood Cells 10-25 SEEN /hpf (0-5)
== END ==
LOC: OLS.AHF 17:49 → LABSPEC 08-25 09:04
PROVIDERS: Referring Provider Physician Assistant; Visit Provider Physician Assistant
DX: R10.9 Unspecified abdominal pain (principal); R30.0 Dysuria
CPT/HCPCS: 81001; 87086; 87088

== ENCOUNTER 2019-09-25 05:48 | Day surgery (SDC) | payer MEDICAID, SELFPAY ==
[2019-08-23 10:36] VITALS: BMI 42.5
--- NOTE | 2019-09-19 11:34 | EKG12_ITS ---
Test Reason : PREOP Blood Pressure : / mmHG Vent. Rate : 056 BPM Atrial Rate : 056 BPM P-R Int : 148 ms QRS Dur : 076 ms QT Int : 452 ms P-R-T Axes : 049 037 017 degrees QTc Int : 436 ms Sinus bradycardia Otherwise normal ECG Confirmed by JUHI BAINS ([id number]), editor trade journal VICTOR MANUEL LUCIO ([id number]) on 09/22/2019 3:47:01 PM Referred By: Stefania Joseph Confirmed By:JUHI BAINS
[2019-09-19 12:12] LABS: Hematocrit 44.2 % (37-47); Hemoglobin 13.9 g/dL (12.0-15.0); Mean Corp Hgb Conc 31.4 g/dL (32-36); Mean Corpuscular Hgb 27.6 pg (27.0-32.0); Mean Corpuscular Volume 87.7 fL (81-99); Platelet Count 280 K/mm3 (150-450); RBC Distribution Width CV 13.4 % (11.6-14.6); Red Blood Count 5.04 M/mm3 (4.2-5.4); White Blood Count 5.7 K/mm3 (4.4-11.0)
[2019-09-19 12:47] LABS: Vitamin D,25 Hydroxy 42.9 ng/mL (29.95-100.01)
[2019-09-19 12:49] LABS: Partial Thromboplast Time 29.4 Seconds (24.1-36.2); Prothrombin Time (Protime)PT. 13.4 SECONDS (11.7-14.9)
--- NOTE | 2019-09-25 06:01 | HP.PCM_ITS ---
History and Physical Date of Admission: 09/25/19 Surgical History and Physical Date: 09/25/2019 Name: FALLON LUCIO Age: 29 Date of : 1990 Fallon Lucio, a 29 year old female 2 0 0 0 2, presents for Laparoscopic bilateral salpingectomy on September 25, 2019 at 7:30. --Desires sterilization. shm MEDICATIONS HISTORY: ALLERGIES: Ceftin, Hives, Ceftin and Hives and/or rash Infections - Pneumonia, ?chickenpox, UTI and Illnesses - anxiety, depression, PIH on meds and some hypertension besides. Accidents - no injuries of consequence Hospitalizations - Childbirth and see surgery lumbar disc herniation; Review of Systems: GENERAL - Denies fever, or chills SKIN - Denies skin changes EYES - Denies visual changes EARS - Denies difficulty hearing NOSE - Denies nasal congestion or bleeding MOUTH - Denies sore throat or difficulty swallowing NECK - Denies pain or swelling RESPIRATORY - Denies shortness of breath or wheezing CARDIOVASCULAR - Denies palpitations or chest pain GASTROINTESTINAL - Denies nausea, vomiting, diarrhea, constipation GENITOURINARY - Denies dysuria, frequency of urination, incontinence of urine MUSCULOSKELETAL - Denies joint or muscle pain NEUROLOGICAL - Denies localized numbness or weakness PSYCHIATRIC - Denies depression or anxiety ENDOCRINE - Denies heat or cold intolerance, weight loss or gain HEMATO-IMMUNOLOGIC - Denies excesive bleeding with cuts SOCIAL HISTORY: Alcohol Use - occasionally not while Smoking - used to smoke but quit Diet - balanced Diet, caffeine < 2 drinks per day and Water intake about one quart. Lifestyle - Exercise - minimal and Walk 20 min daily. Seat Belt Use - always Employer - [employer] Job Description - concrete mixing plant laborer Illicit Drug Use - denies use of street drugs Sexual Activity - [employer] PARTNER Residence - lives with Hours Worked - 32-40 Spouse-Sig Other Name - Freedom Spouse-Sig Other Occupation - concrete mixing plant laborer - [employer] Spouse-Sig Other Phone No - [phone] Children Name(s) - Mia Ceballos Control - tubal planned FAMILY HISTORY: Mother: DM II and Heart Disease. Father: Hypertension. Maternal Grandmother: DM II. MENSTRUAL HISTORY: LMP Known?- , Prior Menses - 12/28/2014, LMP - 11/26/18, Age Onset Menarche - 12 PAST PREGNANCIES: Total Pregnancies - 2; Full Term Pregnancies - 2; Premature - 0; Abortions, Induced - 0; Abortions, Spontaneous - 0; Ectopics - 0; Multiple Births - 0; Living Children - 2 SURGICAL HISTORY: 1. L ankle x2, R ankle x1 - high arch repair - ; - 2. 03/18/2015 Dx laparoscopy, Pertoneal biopsy, Mirena IUD placement ; Stefania Mcpherson MD - PHYSICAL EXAM BP- 140/88 Sitting, Right arm, regular cuff Weight- 206.01637 lbs Height- 63 inch BMI:36.57 CONSTITUTIONAL - NAD, well nourished, and well developed SKIN - No rash, lesions, or ulcers HEENT - Normocephalic, PERRLA, EOMI NECK - No nodes, no nuchal rigidity and thyroid normal size and texture LYMPH NODES - Palpation of lymph nodes in neck and groins within normal limits LUNGS - CTA x2 without wheezes, crackles or rales CARDIAC - Regular rate and rhythm without rubs, murmurs, or gallops BREAST - No dominant masses, no tenderness, no axillary adenopathy, no nipple discharge, no skin changes ABDOMEN - Without hepatosplenomegaly, distention, masses, rebound, or guarding; normal bowel sounds; no hernias EXTREMITIES - No edema or calf tenderness NEUROLOGICAL - normal gait, normal balance, normal motor PSYCHIATRIC - A and O to time, place, person, mood and affect External Genitial Vagina - non-tender without lesions Urethra/Urethral Meatus - non-tender Bladder - non-tender Vagina - vaginal larry are pink and moist without loss of rugae and no evidence of atropy Cervix - without cervical motion tenderness and has normal size and features without evident lesions Uterus - 5-6 cm in size, mobile and nontender Adnexa - clear without massess or tenderness Laboratory Tests 09/19/19 09/19/19 09/19/19 Range/Units 11:27 11:27 11:27 WBC 5.7 (4.4-11.0) K/mm3 RBC 5.04 (4.2-5.4) M/mm3 Hgb 13.9 (12.0-15.0) g/dL Hct 44.2 (37-47) % MCV 87.7 (81-99) fL MCH 27.6 (27.0-32.0) pg MCHC 31.4 L (32-36) g/dL RDW Std Deviation 43.0 (35.1-43.9) fl RDW Coeff of Latoya 13.4 (11.6-14.6) % Plt Count 280 (150-450) K/mm3 MPV 9.0 (6.2-12.0) fl PT 13.4 (11.7-14.9) SECONDS INR 1.0 APTT 29.4 (24.1-36.2) Seconds Vitamin D 25-Hydroxy 42.9 (29.95-100.01) ng/mL ASSESSMENT/PLAN: 1. Encounter For Sterilization Planned laparoscopic bilateral salpingectomy Reviewed how performed, anticipated outpatient hospitalization and recovery, restrictions Procedural r/b/i/a reviewed, also reviewed permanence and risk for failure. declines alternative contraception Consents signed.
[2019-09-25 06:14] VITALS: BP 145/84; PULSE 61; RESP 14; TEMP 36.8; O2SAT 100; BMI 37.3
[2019-09-25 06:27] LABS: Internal QC Validated? YES +Cl - CLEAR BKGD
[2019-09-25 06:28] LABS: Pregnancy, Urine Negative Negative
[2019-09-25] MEDS: Lactated Ringers 1,000 ML 125 ML IV (06:42)
--- NOTE | 2019-09-25 07:30 | FALS_PTH ---
PATIENT: FALLON LUCIO LOC: [facility] U#:[id number] AGE/SX: 29/F ROOM: RE09/25/[address]: Dr. Stefania Mcpherson MD : 1990 BED: DIS: 09/25/2019 SPEC #: [id number] RECD: 09/25/19 10:23 STATUS: GRAZYNA JADYN #: [id number] RAMIRO: 09/25/19 07:[address]: Stefania Bartlett DEPT: SURGICAL PATHOLOGY RECD BY: [place] Maria ENTERED: 09/25/19 10:43 SP TYPE: FALL TUBES OTHR DR: No Primary Care Phys Tissues: Fallopian tube Procedures: Surgery Specimen Level II HEADER OPERATION: Laparoscopic salpingectomy PRE-OP DIAGNOSIS: Sterilization TISSUE SUBMITTED: Bilateral fallopian tubes MICROSCOPIC DIAGNOSIS Bilateral fallopian tubes, salpingectomy: Bilateral fallopian tubes including fimbrial, no pathologic diagnosis. MARY KAY:vilma 09/26/19 MICROSCOPIC DESCRIPTION Slides are reviewed. GROSS DESCRIPTION Received is one container labeled with the patient's name and designated bilateral fallopian tubes. The specimen consists of two fallopian tubes with an average length of 5.5 cm and has an average diameter of 0.7 cm. Both fallopian tubes have normal fimbriated ends. No mass lesions are identified. Safety Lamp Keeper sections are submitted in two cassettes as follows: 1 - one fallopian tube, 2 - the other fallopian tube. / AM:vilma 09/25/19 TC:4 [facility]: [id number] x2
[2019-09-25] MEDS: Bupivacaine Mpf 0.5% 30 ML VIAL (08:00)
--- NOTE | 2019-09-25 08:24 | PCM.OPRPT ---
Problem List (1) Request for sterilization Status: Acute Report of Operation Date of Procedure: 09/25/19 Pre-Operative Diagnosis: Sterilization request Post-Operative Diagnosis: Sterilization request Surgery/Procedure Performed:: Diagnostic laparoscopy, bilateral salpingectomy Description of Surgical Findings:: Pelvic endometriosis visually stage I. Normal uterus, tubes and ovaries. production supply equipment tender: Lexi Mariano Type of Anesthesia:: General Anesthesiologist: Reid Hall Specimen's removed: Bilateral tubes Estimated Blood Loss (mL): 5 Fluids Replaced: 800 ml Description of Procedure: Indications: Ms. Gutiérrez is a 29-year-old 2 para 2-0-0-2 approximately 7 weeks who presents for laparoscopic bilateral salpingectomy desiring sterilization. Procedural risks, benefits, indications and alternatives were reviewed. Patient desired to proceed. Procedure: The patient was brought to the operating room and signed and was performed. She is placed in the dorsal supine position and induced under general anesthesia and intubated. She was then repositioned to dorsolithotomy and examination under anesthesia was performed. Her arms were tucked at her sides. The abdomen and perineum were prepped and draped in sterile fashion. The patient was repositioned into high lithotomy and a Mckeon catheter placed. A speculum was placed into the vagina and cervix grasped at the anterior cervical lip using a Mirza tenaculum. The uterus sounded to 9 cm and a ZUMI uterine manipulator was placed and secured. Speculum was removed from the vagina. The patient was placed into low lithotomy and attention turned to the abdomen. An infraumbilical incision was made using the scalpel. Veress needle was placed with successful hanging drop test and no aspirate. The abdomen was insufflated to 15 mmHg. Veress needle was removed and a 5 mm port was placed under laparoscopic guidance. The patient was then placed into Trendelenburg. A suprapubic incision was made and a 5 mm port placed at the site. A left lower quadrant tap block done. Under transillumination a scalpel created an incision and a 5 mm port was also placed in the left lower quadrant. I proceeded with laparoscopy. The abdomen and pelvis were inspected. The left tubal fimbria was identified and the mesosalpinx grasped, electrocoagulated and transected using the Enseal device to the level of the uterine cornua. The tube was removed via the trocar. In similar fashion right salpingectomy was also performed with removal of the tube via the trocar. There was excellent hemostasis. The procedure was complete. The abdomen was desufflated and trochars and scope removed. The skin was closed using 4-0 Monocryl by the BRINE TANK SEPARATOR OPERATOR under my supervision. Steri-Strips and OpSite were placed over the incisions. Additional half percent bupivacaine was injected locally at the incisional sites for total of 30 cc utilized during the procedure. Sponge counts were correct x2. The patient was awakened, extubated and transferred to the recovery room without complication. - Complications none
[2019-09-25 08:37] VITALS: BP 142/87; BP 145/84; PULSE 70; RESP 16; TEMP 36.4; O2SAT 100
--- NOTE | 2019-09-25 08:37 | DCINST_ITS ---
- Discharge Diagnoses Current Active Problems: Current Active and Chronic Problems (Last Reviewed 08/23/19 @ 11:10 by [place] Ken) Request for sterilization (Acute) Reason(s) for Visit for Discharge Instructions: Laparoscopy You will use the following diet at home:: No restrictions Your food should be the consistency of: Regular Discharge Activity: Return to Normal Activity, May not drive while taking narcotic pain medications., May Shower, May Not Shower, May Take a Tub Bath, - - No driving for 24-48 hours May resume sexual activity in: - - 2-4 weeks Lifting Restrictions: 10-20 lb Call your doctor if your incision/area has: Continuous Slow Oozing, Sudden Increased Bleeding, Increased Pain/ Swelling, Increased Redness Call your doctor if you observe: Fever of 101 or Higher, Inability to urinate, Inability to have a bowel movement, Using more than one pad per hour, Shortness of breath, Chest pain, Calf discomfort, Uncontrolled pain Suture Line Care: Avoid Pulling/Pushing Remove Dressing in (days):: 1 Cleanse incision/area with: Soap & Water Allergies/Adverse Reactions: Allergies adhesive tape Allergy (Verified 09/25/19 06:14) Hives cephalexin monohydrate [From Keflex] Allergy (Verified 09/25/19 06:14) Hives powder in latex gloves Allergy (Uncoded 09/25/19 06:14) Rash Medications to take at Discharge Docusate Sodium [Colace] 100 mg PO BID PRN PRN #60 cap 09/25/19 Ibuprofen 600 mg PO TID PRN #30 tab 09/25/19 Oxycodone [Oxyir] 5 mg PO Q6H PRN PRN 7 Days #12 tab 09/25/19 The following prescriptions were given: Docusate Sodium [Colace] 100 mg PO BID PRN PRN #60 cap PRN Reason: Constipation Transmission Status: Pending to [facility]/pharmacy #[id number] Ibuprofen 600 mg PO TID PRN #30 tab PRN Reason: Pain Or Fever Transmission Status: Pending to [facility]/pharmacy #[id number] Oxycodone [Oxyir] 5 mg PO Q6H PRN PRN 7 Days #12 tab PRN Reason: severe pain Prescription Printed Orders to be completed after discharge: Type & Screen Time Frame: 09/25/19, Facility: [facility], Location: Laboratory Primary Care Physician: Care Physician,No Primary [Primary Care Provider] - Test Results: Test results from this visit will be discussed in further detail at your follow- up appointment, if applicable. Please Follow Up With: Stefania Joseph MD When: 2-4 weeks
[2019-09-25 08:45] VITALS: BP 120/75; BP 145/84; PULSE 68; RESP 16; O2SAT 100
[2019-09-25 09:00] VITALS: BP 120/91; BP 145/84; PULSE 60; RESP 16; O2SAT 100
[2019-09-25 09:13] VITALS: BP 116/65; BP 145/84; PULSE 67; RESP 16; TEMP 36.3; O2SAT 100
[2019-09-25 10:25] VITALS: BP 138/92; BP 145/84; PULSE 63; RESP 16; TEMP 36.3; O2SAT 100
== END 2019-09-25 10:33 | disposition home or self-care (01) ==
LOC: SDC 05:48 → AC 05:49
PROVIDERS: Referring Provider Obstetrics & Gynecology; Visit Provider Obstetrics & Gynecology
PROC: (CPT 58661; principal; 2019-09-25 07:15)
DX: Z30.2 Encounter for sterilization (principal); N80.3 Endometriosis of pelvic peritoneum; Z87.891 Personal history of nicotine dependence
CPT/HCPCS: 00840; 58661; 36415; 81025; 82306; 85027; 85610; 85730; 86850; 86900; 86901; 88302; 93005; J7120; C1760; J2405

== ENCOUNTER → 2020-03-11 18:05 | Outpatient (CLI) | payer MEDICAID, SELFPAY | PROVIDERS: PCP Family Medicine; Referring Provider Family Medicine; Visit Provider Family Medicine | DX: Z20.828 Contact with and (suspected) exposure to other viral communicable diseases (principal); R11.2 Nausea with vomiting, unspecified; R19.7 Diarrhea, unspecified; M79.10 Myalgia, unspecified site | CPT/HCPCS: 87635; 94799; U0003 ==

== ENCOUNTER 2020-06-12 18:32 | Emergency (ER) | payer MEDICAID, SELFPAY ==
[2020-04-29 09:33] VITALS: BMI 37.3
[2020-06-12 18:33] VITALS: BP 184/100; PULSE 94; RESP 18; TEMP 36.3; O2SAT 99; BMI 40.1
--- NOTE | 2020-06-12 19:02 | EKG12_ITS ---
Test Reason : CP Blood Pressure : / mmHG Vent. Rate : 069 BPM Atrial Rate : 069 BPM P-R Int : 138 ms QRS Dur : 078 ms QT Int : 406 ms P-R-T Axes : 040 034 002 degrees QTc Int : 435 ms Normal sinus rhythm Nonspecific T wave abnormality Abnormal ECG Confirmed by KARIE PRYOR, ROCIO ([id number]), commissioning editor TIA COPELAND ([id number]) on 06/14/2020 2:01:33 PM Referred By: BB Confirmed By:ROCIO TIWARI MD
--- NOTE | 2020-06-12 19:02 | ED.DCSUM_ITS ---
History of Present Illness Chief Complaint: Chest Pain Informant: Patient Onset: Days Timing: Continuous, Waxes and wanes Quality: Sharp, - - pinching Location: Substernal Worsened By: Nothing Relieved By: Nothing Narrative: She is a 29-year-old female with history of anxiety and hypertension presenting with 2 to 3 days of worsening chest pain. She states it is substernal and radiates out both sides. She states is been worse today. The pain is constant but fluctuates in intensity. She describes it as sharp and pinching. She noted some mild associated shortness of breath today an episode while she was she was shopping when she felt very hot and nauseous. She does note that she is been nauseous since starting a new medication, Lexapro. No change with rest or exertion. She denies any aggravating or alleviating factors. She denies any fever or chills. She denies any urinary symptoms. Last menstrual period was a couple days ago and she has had a tubal ligation so she is not concerned for . No associated abdominal pain. Normal bowel habits. No known sick contacts. No other complaints at this time. Past Medical History - Allergies and Home Meds Allergies/Adverse Reactions: Allergies adhesive tape Allergy (Verified 06/12/20 18:38) Hives cephalexin monohydrate [From Keflex] Allergy (Verified 06/12/20 18:38) Hives powder in latex gloves Allergy (Uncoded 06/12/20 18:38) Rash Primary Care Physician: Mayur Lepe MD [Primary Care Provider] - Past Medical History: - - Anxiety, hypertension Surgical History: - - Tubal ligation Lives: With Family Smoking Status: Never smoker Review of Systems General: Denies: Chills, Fever, Sweats Eyes: Denies: Visual changes - bilaterally, Diplopia ENT: Denies: Rhinorrhea, Sore throat Cardiovascular: Reports: Chest pain. Denies: Palpitations Respiratory: Reports: Dyspnea. Denies: Cough, Dyspnea on exertion Gastrointestinal: Reports: Nausea. Denies: Abdominal pain, Vomiting, Diarrhea, Melena, Hematochezia Genitourinary: Denies: Dysuria, Hematuria, Frequency Musculoskeletal: Denies: Back pain, Extremity Pain Skin: Denies: Rash, Wounds Neurological: Denies: Headache, Weakness, Numbness Physical Exam Vital Signs/Narrative: Vital Signs Temp Pulse Resp BP Pulse Ox 06/12/20 18:33 97.3 F L 94 18 184/100 H 99 Inital Vital Signs reviewed: Yes General: Well nourished, Well developed, Obese, No Acute Distress Head: Normocephalic, Atraumatic Eyes: Perrl, EOMI ENT: Moist mucous membranes, No rhinorrhea Neck: Supple, Nontender Cardiovascular: Regular rate, Regular rhythm, No murmurs Respiratory: No distress, CTA bilaterally, Chest tenderness - Mild tenderness to palpation of the sternum however this does not reproduce her exact chest pain Abdomen: Soft, Nontender, Nondistended, Normal bowel sounds. Negative for: Guarding, Rebound tenderness Back: Nontender, Normal Inspection. Negative for: CVA tenderness Extremities: Nontender, No edema Skin: Normal color, No rash Neurological: Alert, Oriented x3, Cranial nerves II-XII grossly intact, Normal Strength, Normal Sensation Psychological: Normal affect, Normal Mood Diagnostic/Tx/Re-eval Chest X-Ray - ED: 2 View, Read by ED Physician, Read by Radiologist, No Acute Disease Clinical Impression(s) from Imaging Studies Chest X-Ray 06/12/20 19:15 IMPRESSION: Normal x-ray examination of the chest. Electronically Signed: Lucho Cavanaugh DO at 19:27 EST Tel , Service support , Laboratory Data 06/12/20 06/12/20 06/12/20 18:40 18:40 20:00 WBC Cancelled 9.5 Corrected WBC Cancelled RBC Cancelled 5.20 Hgb Cancelled 14.4 Hct Cancelled 45.0 MCV Cancelled 86.5 MCH Cancelled 27.7 MCHC Cancelled 32.0 RDW Std Deviation Cancelled 40.5 RDW Coeff of Latoya Cancelled 12.9 Plt Count Cancelled 332 MPV Cancelled 9.0 Immature Gran % (Auto) Cancelled 0.200 Neut % (Auto) Cancelled 68.2 Lymph % (Auto) Cancelled 22.8 [place] % (Auto) Cancelled 7.4 Eos % (Auto) Cancelled 1.1 Baso % (Auto) Cancelled 0.3 Absolute Neuts (auto) Cancelled 6.5 Absolute Lymphs (auto) Cancelled 2.17 Total Counted Cancelled Neutrophils % (Manual) Cancelled Band Neutrophils % Cancelled Lymphocytes % (Manual) Cancelled Monocytes % (Manual) Cancelled Eosinophils % (Manual) Cancelled Basophils % (Manual) Cancelled Metamyelocytes % Cancelled Myelocytes % Cancelled Promyelocytes % Cancelled Blast Cells % Cancelled Plasma Cell % (Manual) Cancelled Other Cells % Cancelled Nucleated RBC % Cancelled 0 Nucleated RBCs/100 WBC Cancelled Differential Comment Cancelled Diff Path Review Cancelled Hypersegmented Neuts Cancelled Atypical Lymphocytes Cancelled Reactive Lymphocytes Cancelled Smudge Cells Cancelled Toxic Granulation Cancelled Toxic Vacuolation Cancelled Dohle Bodies Cancelled Leonel Rods Cancelled Platelet Estimate Cancelled Plt Morphology Comment Cancelled RBC Morphology Cancelled Polychromasia Cancelled Hypochromasia Cancelled Poikilocytosis Cancelled Basophilic Stippling Cancelled Anisocytosis Cancelled Microcytosis Cancelled Macrocytosis Cancelled Spherocytes Cancelled Sickle Cells Cancelled Target Cells Cancelled Tear Drop Cells Cancelled Ovalocytes Cancelled Stomatocytes Cancelled Redman-Bowlus Bodies Cancelled Michelle Cells Cancelled Bite Cells Cancelled Crenated Cell Cancelled Acanthocytes (Spur) Cancelled Rouleaux Cancelled Schistocytes Cancelled Sodium 141 Potassium 4.1 Chloride 108 H Carbon Dioxide 25.0 Anion Gap 8 BUN 13 Creatinine 0.77 Estim Creat Clear Calc 85.26 Est GFR (MDRD) Af Amer 114 Est GFR (MDRD) Non-Af 94 BUN/Creatinine Ratio 16.9 Glucose 88 Calcium 10.0 Troponin I < 0.015 - Rhythm Strip Rhythm Strip: Sinus Rhythm Rate: 79 Ectopy: None - EKG Initial EKG Interpretation: Sinus Rhythm, - - Normal sinus rhythm at a rate of 79 Normal axis Normal intervals T wave inversions in the inferior leads Prior: Unchanged MINDY Risk: No Positive MINDY Elements Score: 0 - Medical Decision Making Patient is evaluated for 3 days of substernal chest pain. It does not sound cardiac in nature. She does have a T wave inversion in the inferior leads but these do appear to be present on a prior EKG. Troponin is negative. She is PE RC negative and I do not think this is a PE. Patient is well-appearing in the ER. She is hypertensive when she first came in but without any intervention it does improve significantly. Patient is encouraged to follow-up with her primary care doctor for further evaluation of this chest pain. This time she is counseled that the exact cause of her chest pain is not clear but she is safe for outpatient follow-up. Patient is counseled on signs and symptoms requiring return to the emergency room. Patient verbalizes agreement and understand this plan. Patient discharged home in stable and improved condition. ED Disposition - Plan for ED Patient: Disposition: Home or Assisted Living Diagnosis: Chest pain Instructions: ED Chest Pain Atypical Unkn Cause Referrals: Mayur Lepe MD [Primary Care Provider] -
--- NOTE | 2020-06-12 19:15 | RAD_ITS ---
STUDY: X-RAY CHEST REASON FOR EXAM: Female, 29 years old. chest pain x 2 days worse today TECHNIQUE: PA and lateral views of the chest. COMPARISON: 07/03/2018 FINDINGS: The lungs are clear and expanded. There is no demonstrated pleural abnormality. Normal size heart. Normal mediastinum and laya. Normal visualized pulmonary arteries. Normal visualized aortic arch and descending thoracic aorta. Normal visualized thoracic spine. Normal visualized ribs, clavicles, and shoulders. There is no demonstrated abnormality of the visualized soft tissue structures of the upper abdomen. RAD/Chest PA and Lateral IMPRESSION: Normal x-ray examination of the chest. Electronically Signed: Lucho Cavanaugh DO at 19:27 EST Tel , Service support ,
[2020-06-12 19:37] VITALS: BP 170/99; PULSE 82; RESP 16; O2SAT 98
[2020-06-12 19:38] VITALS: O2SAT 98
[2020-06-12 20:08] VITALS: PULSE 68; RESP 16; O2SAT 98
[2020-06-12 20:10] LABS: Absolute Lymphocyte Count 2.17 X10^3/uL (0.83-4.51); Absolute Neutrophil Count 6.5 X10^3/uL (2.0-7.7); Basophil# 0.03 X10^3/uL; Basophil% 0.3 % (0-1); Eosinophils% 1.1 % (0-5); Hemoglobin 14.4 g/dL (12.0-15.0); Lymphocyte # 2.17 X10^3/ul (4.0); Lymphocyte % 22.8 % (19-41); Mean Corpuscular Hgb 27.7 pg (27.0-32.0); Mean Corpuscular Volume 86.5 fL (81-99); Monocyte% 7.4 % (0-10); NRBC Flagged by Analyzer 0 % (0-5); Neutrophil % 68.2 % (47-70); Platelet Count 332 K/mm3 (150-450); RBC Distribution Width CV 12.9 % (11.6-14.6); RBC Distribution Width SD 40.5 fl (35.1-43.9); White Blood Count 9.5 K/mm3 (4.4-11.0)
[2020-06-12 20:37] LABS: BUN 13 mg/dL (7-18); Glucose 88 mg/dL (74-106)
[2020-06-12 20:38] LABS: Anion Gap 8 (5-15); BUN/Creat Ratio 16.9 RATIO (10-20); Chloride 108 mmol/L (98-107); Creatinine, Serum 0.77 mg/dL (0.55-1.02); Estimated Creatinine Clearance 85.26 ml/min; Sodium Level 141 mmol/L (136-145)
[2020-06-12 21:11] VITALS: BP 129/105; PULSE 60; RESP 12; O2SAT 100
[2020-06-12 21:22] LABS: EST Glomerular Filtration Rate 94 mL/min (>60); Est Glom Filt Rate - Afr Amer 114 mL/min (>60); Potassium 4.1 mmol/L (3.5-5.1)
== END 2020-06-12 21:11 | disposition home or self-care (01) ==
PROVIDERS: Emergency Provider Emergency Medicine; PCP Family Medicine
DX: R07.9 Chest pain, unspecified (principal); I10 Essential (primary) hypertension; F41.9 Anxiety disorder, unspecified; E66.9 Obesity, unspecified; Z68.41 Body mass index [BMI] 40.0-44.9, adult
CPT/HCPCS: 71046; 80048; 84484; 85025; 93005; 99284; A4216

== ENCOUNTER 2020-06-13 10:23 | Emergency (ER) | payer MEDICAID, SELFPAY ==
[2020-06-12 18:33] VITALS: BMI 40.1
[2020-06-13 10:24] VITALS: BP 162/100; PULSE 92; RESP 18; TEMP 36.6; O2SAT 98; BMI 42.0
--- NOTE | 2020-06-13 10:37 | EKG12_ITS ---
Test Reason : CP Blood Pressure : / mmHG Vent. Rate : 079 BPM Atrial Rate : 079 BPM P-R Int : 138 ms QRS Dur : 082 ms QT Int : 452 ms P-R-T Axes : 039 035 -07 degrees QTc Int : 518 ms Sinus rhythm with Premature atrial complexes Nonspecific ST & T wave abnomality Prolonged QT Abnormal ECG Confirmed by YOLANDE PRYOR, ESTEPHANIA ([id number]), assistant film editor TIA COPELAND ([id number]) on 06/14/2020 2:24:55 PM Referred By: TALIB Confirmed By:ESTEPHANIA LANIER MD
--- NOTE | 2020-06-13 10:37 | ED.VIS.CHEST ---
History of Present Illness Chief Complaint: Chest Pain Informant: Patient Onset: - 3- Activity at onset: Unknown Timing: Intermittent Quality: Sharp, Tightness Location: Substernal - Now radiating into the proximal right upper arm and right neck on occasion Current Severity: Moderate - Only chest discomfort at this time Maximum Severity: Moderate Worsened By: Not Worsened By: Exertion, Palpation, Breathing, Coughing Relieved By: Nothing Associated Symptoms: Lightheadedness - Once this morning when walking upstairs, no syncope. Negative for: Nausea, Vomiting, Diaphoresis, Dyspnea, Cough, Fever, Palpitations Narrative: Patient was here last night for same symptoms with a negative work-up, except now it is radiating into her right upper arm and neck. She has had nothing else to change. She has yet to follow-up since she was just here. She has no known history of heart problems. She called nursing line this morning since she was having recurrent symptoms and was advised to have reevaluation in the emergency department. Patient presents during the national coronavirus emergency declaration/pandemic. She denies any known contact with anyone infected with COVID-19. She denies traveling out of the immediate area recently. PE Risk Factors: Negative for: Recent Travel/Surgery, Recenet Immobilization, Prior DVT or PE, Cancer, OCP + Smoking + >/=35 - Past Medical History (1) Anxiety Status: Chronic (2) Hypertension Status: Chronic Past Medical History - Allergies and Home Meds Allergies/Adverse Reactions: Allergies adhesive tape Allergy (Verified 06/13/20 10:26) Hives cephalexin monohydrate [From Keflex] Allergy (Verified 06/13/20 10:26) Hives powder in latex gloves Allergy (Uncoded 06/13/20 10:26) Rash Primary Care Physician: Mayur Lepe MD [Primary Care Provider] - Surgical History: - - Tubal ligation Smoking Status: Never smoker Review of Systems General: Denies: Chills, Fever, Sweats Eyes: Denies: Visual changes - bilaterally, Diplopia ENT: Denies: Bilateral ear pain, Rhinorrhea, Sore throat Cardiovascular: Reports: Chest pain. Denies: Palpitations Respiratory: Denies: Dyspnea, Cough, Dyspnea on exertion Gastrointestinal: Denies: Abdominal pain, Nausea, Vomiting, Diarrhea, Melena, Hematochezia Genitourinary: Denies: Dysuria, Hematuria, Frequency Musculoskeletal: Reports: Extremity Pain - See HPI. Denies: Myalgias, Neck pain, Back pain, Swelling Skin: Denies: Rash, Wounds Neurological: Denies: Headache, Weakness, Numbness Physical Exam Vital Signs/Narrative: Vital Signs Temp Pulse Resp BP Pulse Ox 06/13/20 10:24 97.9 F 92 18 162/100 H 98 Inital Vital Signs reviewed: Yes General: Well nourished, Well developed, Obese, No Acute Distress Head: Normocephalic, Atraumatic Eyes: Perrl, EOMI ENT: Moist mucous membranes, No rhinorrhea Neck: Supple, Nontender Cardiovascular: Regular rate, Regular rhythm, No murmurs Respiratory: No distress, CTA bilaterally, Chest nontender - And no splinting on deep inspiration Abdomen: Soft, Nontender, Nondistended, Normal bowel sounds Back: Nontender, Normal Inspection Extremities: Nontender, No edema. Negative for: Calf Tenderness Skin: Normal color, No rash Neurological: Alert, Oriented x3, Cranial nerves II-XII grossly intact, Normal Strength, Normal Sensation Psychological: Normal affect, Normal Mood Diagnostic/Tx/Re-eval Laboratory Results 06/13/20 11:08 Troponin I < 0.015 - Rhythm Strip Rhythm Strip: Sinus Rhythm Rate: 69 Ectopy: None - EKG Initial EKG Interpretation: Sinus Rhythm, No Acute Injury Pattern, Inverted T-Waves - inferiorly Prior: Unchanged Treatment: GI Cocktail Repeat Eval: Pain Free MINDY Risk: No Positive MINDY Elements Score: 0 - Medical Decision Making Patient has a normal EKG. She just had a thorough cardiac work-up when she was here yesterday including a chest x-ray, I do not think that needs to be repeated but I did repeat her troponin which is negative again. After GI cocktail she feels much better. I reassured the patient she is not having cardiac pain and she is stable to be discharged home. We will place her on a 2-week course of a PPI and advised to follow-up with her doctor, she is comfortable with that plan. ED Disposition - Plan for ED Patient: Disposition: Home or Assisted Living Diagnosis: Chest pain, non-cardiac Instructions: ED Chest Pain NonCardiac Prescriptions: Pantoprazole Sodium [Protonix] 40 mg PO DAILY #30 tab [facility] Referrals: Mayur Lepe MD [Primary Care Provider] - 1-2 Weeks
[2020-06-13] MEDS: Mag Hydrox/Al Hydrox/Simeth 30 ML UDC PO (11:20)
== END 2020-06-13 12:37 | disposition home or self-care (01) ==
PROVIDERS: Emergency Provider Emergency Medicine; PCP Family Medicine
DX: R07.89 Other chest pain (principal); I10 Essential (primary) hypertension; F41.9 Anxiety disorder, unspecified; E66.9 Obesity, unspecified; Z68.41 Body mass index [BMI] 40.0-44.9, adult
CPT/HCPCS: 36415; 84484; 93005; 99282

== ENCOUNTER 2020-07-08 10:00 | Outpatient (RCR) | payer MEDICAID, SELFPAY ==
[2020-04-29 09:33] VITALS: BMI 37.3
--- NOTE | 2020-05-24 16:56 | HP.PTEVAL_ITS ---
Patient's Visit Information FALLON LUCIO is a 29 year old F referred to Physical Therapy by Dr. Hailey Stephens DPM with a diagnosis of Medial and Lateral Ankle Sprains- Achilles Tendonitis- Equinus. Date of Evaluation: 05/24/20 Physical Therapist: Asha Butler DPT - Visit Plan Frequency: 2x /Week Duration: 4 Weeks Plan: Focus on strength and proprioception of the ankle. HEP given IE: HR/TR, SLS, 4 way Tband Green, Gastroc Stretch - Subjective Left ankle was sent by Dr. Flowers and Javid at [facility]. Has had multiple ankle surgeries in high school and middle school- and now she always is rolling and twisting the ankle. Has tried cortisone and taping without help. About a month ago she hurt her ankle and it never really got better. So went to Urgent Care- then went to ortho and they sent her to PT. She wears a night splint on/off and she wears an ankle brace. Wears the brace all the time- does twist it through the brace. Rolls both ways. Worst: 9/10 Agg: rolling it, steping on it wrong, lifting, standing on it to long, rotation of her body. She has to walk on her toes or turned out if she does not wear the night splint. Takes about an hour for it to stretch out. Best: 0/10 Eases: staying off of it. Pa in is located in ther medial and lateral malleolus and into the achilles- no radiating pain but does have jaquelin horses. No N/T- describes the pain as achy but can be between a burn and ache. Normally wears crocks and hard to find a brace. 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 Sleep: disturbed- pain keeps her awake. Is active with her 7 year old and 9 month old but does not work out. PMHx: ankle surgeries bilateral, HTN, anxiety. Meds: hydrochlorothaside - Objective Posture: FH, RS- can correct with verbal cues but does not maintain. Gait: antalgic- decreased stance on right LE with poor heel/toe pattern-no AD- wearing ankle brace-lace up. Girth: Figure 8: 54cm. HR/TR: able with pain. SLS: unable but does weight shift- pain and instability- significant muscle activation. ROM: DF: 10 degrees from neutral, PF: 60 degrees, Inver: 30 degrees Ever: 10 degrees pain in all directions at end range. Knee: WNL. Strength: 4/5 throughout ankle and reports pain and instability - Goals Goal 1:: Patient will be I with HEP and progression Goal Time Frame: 4-6 Weeks Goal 2:: Patient will ambulate >300 feet with a normalized gait pattern Goal Time Frame: 4-6 Weeks Goal 3:: Patient will SLS for 30 sec without LOOB Goal Time Frame: 4-6 Weeks Goal 4:: Patient will report no instability episodes for 1 week Goal Time Frame: 4-6 Weeks - Rehabilitation Potential Physical Therapy Diagnosis: Patient presents with hypomobility- she has decreased strength, flex, proprioception and muscular endurance leading to instability and pain with ADL's. Rehabilitation Potential: Fair - Anticipated Interventions Patient/Client Instruction: Educate patient on: Benefits of Fitness Program Therapeutic Exercise to Include: Strength training, Endurance training, Balance training, Coordination, Agility training, Body mechanics, Postural training, Flexibilty training, Gait and locomotor training, Neuromotor development, Passive ROM, Active ROM, Dynamic Lumbar Stabilization, Scapular Strength/Stabilization For the Purpose of:: To improve muscle performance and motor function TENS: Yes Cryotherapy (ice pack, ice massage): Yes Thermo therapy (hot pack): Yes Ultrasound (thermal/non thermal): Yes Thank you for the opportunity to evaluate your patient. For Medicare and Medicare HMO plans, please review the plan of care and approve it. It will need to be FAXED BACK to us at [phone] for Medicare purposes. For Medicare only, by signing this I certify the plan of care. Please let me know if there are questions or concerns regarding this plan of ca re. Physician Signature: Date:
--- NOTE | 2020-06-17 10:46 | HP.PTREVAL ---
Dr. Hailey Stephens, DPM, It has been my pleasure to treat FALLON LUCIO over the last 7 visits for Medial and Lateral Ankle Sprains- Achilles Tendonitis- Equinus. Please see the progress note below for an update on the physical therapy plan of care! Subjective: Patient reports that she is getting better- she can stretch her legs for 30 sec then hop out of bed and feel like she can do her day. She is still having a lot of pain. She has great days and bad days-50% better with function. Pain in the AM is 75% better but the pain around is 50% better. Goes back to [place] on Sunday. [facility] Objective/Function: Posture: FH, RS- can correct with verbal cues but does not maintain. Gait: no significant deviation noted- does not wear ankle brace or supportive shoes today . HR/TR: able with discomfort with TR. SLS: 10 sec then instability ROM: DF: neutrall, PF: 60 degrees, Inver: 30 degrees Ever: 10 degrees pain with inversion. Knee: WNL. Strength: 4+/5 throughout ankle and reports pain and instability Plan Plan: Continue PT- 2x a week for 4 weeks to progress towards goals and work related tasks Goals Goal 1:: Patient will be I with HEP and progression Goal Time Frame: 4-6 Weeks Goal Progress: Progressing Goal 2:: Patient will ambulate >300 feet with a normalized gait pattern Goal Time Frame: 4-6 Weeks Goal Progress: Progressing Goal 3:: Patient will SLS for 30 sec without LOOB Goal Time Frame: 4-6 Weeks Goal Progress: Progressing Goal 4:: Patient will report no instability episodes for 1 week Goal Time Frame: 4-6 Weeks Goal Progress: Progressing Anticipated Interventions Patient/Client Instruction: Educate patient on: Benefits of Fitness Program Therapeutic Exercise to Include: Strength training, Endurance training, Balance training, Coordination, Agility training, Body mechanics, Postural training, Flexibilty training, Gait and locomotor training, Neuromotor development, Passive ROM, Active ROM, Dynamic Lumbar Stabilization, Scapular Strength/Stabilization For the Purpose of:: To improve muscle performance and motor function TENS: Yes Cryotherapy (ice pack, ice massage): Yes Thermo therapy (hot pack): Yes Ultrasound (thermal/non thermal): Yes Please do not hesitate to contact me at [phone] by phone or if you have questions or concerns regarding this new plan of care! Sincerely, DRE NunesT
--- NOTE | 2020-09-08 15:40 | HP.PT.NRP ---
FALLON LUCIO was seen in my office for initial evaluation on 05/24/20. The following Plan of Care was established for this patient: Initial Frequency: 2x /Week Initial Duration: 4 Weeks Patient/Client Instruction: Educate patient on: Benefits of Fitness Program Therapeutic Exercise to Include: Strength training, Endurance training, Balance training, Coordination, Agility training, Body mechanics, Postural training, Flexibilty training, Gait and locomotor training, Neuromotor development, Passive ROM, Active ROM, Dynamic Lumbar Stabilization, Scapular Strength/Stabilization For the Purpose of:: To improve muscle performance and motor function TENS: Yes Cryotherapy (ice pack, ice massage): Yes Thermo therapy (hot pack): Yes Ultrasound (thermal/non thermal): Yes This patient was last seen in our office . Pertinent comments regarding their Physical therapy will appear below: Discharge- pt has not attended PT in over 30 days. At this point I will be discontinuing this patient from physical therapy. I would be happy to see this patient again in the future if found appropriate by the physician. Thank you! Asha Butler DPT
== END 2020-07-08 19:00 | disposition home or self-care (01) ==
LOC: PT 10:00
PROVIDERS: PCP Family Medicine; Referring Provider Podiatrist Foot & Ankle Surgery; Visit Provider Podiatrist Foot & Ankle Surgery
DX: S93.402D Sprain of unspecified ligament of left ankle, subsequent encounter (principal); M76.62 Achilles tendinitis, left leg
CPT/HCPCS: 97110; 97140; 97161; 97164

== ENCOUNTER → 2020-07-11 | Outpatient (CLI) | payer MEDICAID, SELFPAY | END | disposition home or self-care (01) | PROVIDERS: PCP Family Medicine; Referring Provider Physician Assistant Medical; Visit Provider Physician Assistant Medical | DX: R68.89 Other general symptoms and signs (principal) | CPT/HCPCS: 87635; U0003 ==

== ENCOUNTER 2020-07-13 16:28 | Emergency (ER) | payer MEDICAID, SELFPAY ==
[2020-07-13 16:30] VITALS: BP 178/119; PULSE 100; RESP 18; TEMP 35.8; O2SAT 98; BMI 38.9
--- NOTE | 2020-07-13 17:36 | ED.VIS.GEN ---
History of Present Illness Chief Complaint: Head Injury Narrative: Presents after head injury about 13 to 14 hours ago, she stood up and hit the back of her head onto a metal pole. She was dazed but she did not lose consciousness she has no nausea or vomiting she has no vision changes or neurological symptoms. She is also had a few days of nausea myalgias, upper airway congestion and is worried about Covid Past Medical History - Allergies and Home Meds Allergies/Adverse Reactions: Allergies adhesive tape Allergy (Verified 07/13/20 16:30) Hives cephalexin monohydrate [From Keflex] Allergy (Verified 07/13/20 16:30) Hives powder in latex gloves Allergy (Uncoded 07/13/20 16:30) Rash Primary Care Physician: Mayur Lepe MD [Primary Care Provider] - Past Medical History: - - Hypertension, depression Surgical History: - - Tubal ligation Smoking Status: Never smoker Review of Systems All systems negative except as indicated General: Reports: - - No head injury. Denies: Chills, Fever Eyes: Denies: Visual changes - bilaterally Cardiovascular: Denies: Chest pain Respiratory: Reports: Cough. Denies: Dyspnea, Sputum Gastrointestinal: Denies: Abdominal pain, Nausea Genitourinary: Denies: Dysuria Musculoskeletal: Denies: Myalgias Neurological: Denies: Headache, Weakness Psych: Denies: Depression Endocrine: Denies: Polyuria Hematologic: Denies: Easy bruising, Easy bleeding Physical Exam Vital Signs/Narrative: Vital Signs Temp Pulse Resp BP Pulse Ox 07/13/20 16:30 96.4 F L 100 18 178/119 H 98 General: Well nourished, Well developed Head: Normocephalic, Atraumatic, - - No visible scalp hematoma or contusion Eyes: Perrl, EOMI ENT: Moist mucous membranes, No rhinorrhea Neck: Supple, - - No C-spine tenderness Cardiovascular: Regular rate, Regular rhythm Respiratory: No distress, CTA bilaterally Abdomen: Soft, Nontender Back: Nontender, Normal Inspection. Negative for: CVA tenderness Extremities: Nontender, No edema Skin: Normal color Neurological: Alert, Oriented x3, Cranial nerves II-XII grossly intact, Normal Strength, Normal Sensation, Normal Gait Diagnostic/Tx/Re-eval - Medical Decision Making Patient does not meet criteria for a CT of the head. She appears well. She does have some symptoms concerning for Covid and I will get a send out Covid test. ED Disposition - Plan for ED Patient: Disposition: Home or Assisted Living Diagnosis: Hypertension, Concussion without loss of consciousness, Upper respiratory infection Instructions: ED Head Injury (Adult) Referrals: Mayur Lepe MD [Primary Care Provider] - 3-5 Days
== END 2020-07-13 18:16 | disposition home or self-care (01) ==
LOC: ED 17:49
PROVIDERS: Emergency Provider Emergency Medicine; PCP Family Medicine
DX: S06.0X0A Concussion without loss of consciousness, initial encounter (principal); W22.8XXA Striking against or struck by other objects, initial encounter; Y93.89 Activity, other specified; Y92.9 Unspecified place or not applicable; Y99.9 Unspecified external cause status; J06.9 Acute upper respiratory infection, unspecified; I10 Essential (primary) hypertension; F32.9 Major depressive disorder, single episode, unspecified; Z88.1 Allergy status to other antibiotic agents
CPT/HCPCS: 87635; 99282; U0003

== ENCOUNTER 2020-08-06 18:17 | Emergency (ER) | payer MEDICAID, SELFPAY ==
[2020-08-06 18:18] VITALS: BP 161/105; PULSE 81; RESP 18; TEMP 36.4; O2SAT 96; BMI 38.9
--- NOTE | 2020-08-06 18:39 | EKG12_ITS ---
Test Reason : CP Blood Pressure : / mmHG Vent. Rate : 075 BPM Atrial Rate : 075 BPM P-R Int : 138 ms QRS Dur : 084 ms QT Int : 362 ms P-R-T Axes : 037 030 -67 degrees QTc Int : 404 ms Sinus rhythm with Premature atrial complexes ST & T wave abnormality, consider inferior ischemia Abnormal ECG Confirmed by KARIE PRYOR, ROCIO ([id number]), avid editor ALICIA REYNA ([id number]) on 08/09/2020 8:56:09 AM Referred By: AMRITA Confirmed By:ROCIO TIWARI MD
--- NOTE | 2020-08-06 18:39 | CT_ITS ---
STUDY: CT BRAIN WITHOUT CONTRAST REASON FOR EXAM: Female, 30 years old. Headache hypertension RADIATION DOSAGE (If Supplied By Facility): CTDIvol = ( 44.99 ) mGy, DLP = ( 745.49 ) mGycm TECHNIQUE: Transaxial CT imaging of the brain was performed without administration of intravenous contrast material. Individualized dose optimization techniques were used for this CT. COMPARISON: No relevant priors. FINDINGS: Brain parenchyma is without focal lesions, mass effect, acute intracranial hemorrhage, extra parenchymal fluid collections, hydrocephalus or herniation. The skull is intact. CT/Brain/Head without Contrast IMPRESSION: 1. Normal CT brain. Electronically Signed: Shilpi Espitia, at 19:22 EST Tel , Service support ,
--- NOTE | 2020-08-06 18:42 | ED.VISSUMM ---
- ER Visit Summary Date of Service: 08/06/20 Chief Complaint: Headache, high blood pressure, chest pain History of Present Illness: The patient is a [address] Lepe. She reports that she has a headache that began yesterday. Is gradually gotten worse. Is an aching diffuse pain is 9-10 worsening to 10 currently. Decreased with light or movement. She taken Tylenol and caffeine without relief. She is never had a headache like this before. She reports she had nausea without vomiting. Patient reports she has chest pain began approximate 2 hours ago while she was at rest. Is a continuous waxing waning squeezing pain is 5-10 severity currently and at worst. Nothing makes this better or worse. She denies any vomiting, shortness of breath, or diaphoresis with this. Patient reports that she measured her blood pressure at home and it was 167/110 yesterday. Typically it is 140 systolic. She also reports that she has a cough that began 2 days ago and sinus drainage. The cough is productive green sputum without blood. She denies any fever. She has had chills. No sick contacts. She does wear a mask. Physical Examination: Vitals: Stable. Afebrile. General: Well-nourished and well-developed. Head: Normocephalic atraumatic. Neck: Supple, no lymphadenopathy. No JVD. Nontender. Cardiovascular: Regular rate and rhythm. No murmurs. Respiratory: No respiratory distress. Clear to auscultation bilaterally. Abdominal: Soft, nontender, nondistended, normal bowel sounds. No guarding, rebound, or peritoneal signs. Back: Nontender. Extremities: Nontender, no edema. Skin: Normal color, no rash. Neurologic: Alert and oriented ?3. Cranial nerves II through XII are intact. Normal strength and sensation. Psych: Normal affect. Test Results: EKG is sinus at 75 with T wave inversions inferiorly as well as leads V3 to V6. This is unchanged from June 122019. CBC shows monocytes of 11. Chem-7 shows a potassium of 2.9. Troponin is negative. Chest x-ray is normal. COVID-19 is negative. Clinical Impression(s) from Imaging Studies Brain CT 08/06/20 18:39 IMPRESSION: 1. Normal CT brain. Electronically Signed: Shilpi Espitia, at 19:22 EST Tel , Service support , Emergency Department Course and Treatment: Patient had an IV placed. She was given a liter normal saline. She was given Toradol, Reglan, and Benadryl IV. She is resting more comfortably. Her blood pressure came down to 131/78 without further treatment. She was given 60 mEq of K-Dur p.o. Treatment Plan: Patient is on 25 mg of hydrochlorothiazide. I suspect that this is the source of her hypokalemia. She will have this decreased back down to 12.5 mg a day and have 10 mg of lisinopril added for hypertension. Instructed to follow-up with her primary care physician within a week for another exam. Return to the emergency department for any worsening symptoms. Disposition: To home in improved and stable condition. Impression: 1. Hypertension. 2. Atypical chest pain. 3. Cephalgia. 4. Hypokalemia. This note was generated with [employer] dictation software. It may contain incorrect words, spelling, and punctuation that were not noted in review of the chart prior to signing ED Disposition - Plan for ED Patient: Instructions: ED High Blood Pressure ... Prescriptions: Potassium Chloride [K-Dur] 40 meq PO DAILY #10 tab Lisinopril/Hydrochlorothiazide [Lisinopril-Hctz 10-12.5 mg Tab] 1 ea PO DAILY #30 tab Referrals: Mayur Lepe MD [Primary Care Provider] - 1 Week
[2020-08-06 19:00] VITALS: BP 159/106; PULSE 79; RESP 16; O2SAT 98
[2020-08-06 19:00] LABS: Absolute Lymphocyte Count 2.48 X10^3/uL (0.83-4.51); Absolute Neutrophil Count 4.4 X10^3/uL (2.0-7.7); Basophil# 0.04 X10^3/uL; Basophil% 0.5 % (0-1); Eosinophil# 0.13 X10^3/uL; Eosinophils% 1.6 % (0-5); Hematocrit 45.3 % (37-47); Hemoglobin 14.3 g/dL (12.0-15.0); Lymphocyte # 2.48 X10^3/ul (4.0); Lymphocyte % 31.2 % (19-41); Mean Corp Hgb Conc 31.6 g/dL (32-36); Mean Corpuscular Hgb 26.9 pg (27.0-32.0); Mean Corpuscular Volume 85.2 fL (81-99); Mean Platelet Vol. 8.9 fl (6.2-12.0); Monocyte# 0.89 X10^3/uL; Monocyte% 11.2 % (0-10); NRBC Flagged by Analyzer 0 % (0-5); Neutrophil # 4.38 X10^3/uL (2.7-7.7); Neutrophil % 55.2 % (47-70); Platelet Count 320 K/mm3 (150-450); RBC Distribution Width CV 13.1 % (11.6-14.6); RBC Distribution Width SD 40.6 fl (35.1-43.9); Red Blood Count 5.32 M/mm3 (4.2-5.4); White Blood Count 7.9 K/mm3 (4.4-11.0)
[2020-08-06] MEDS: Ketorolac 15 MG/ML Vial IV (19:02)
[2020-08-06] MEDS: Metoclopramide 10 MG/2 ML Vial IV (19:02)
[2020-08-06] MEDS: 0.9% Normal Saline 1,000 ML 1000 ML IV (19:02)
[2020-08-06] MEDS: DiphenhydrAMINE 50 MG/ML Syringe 25 MG IV (19:02)
--- NOTE | 2020-08-06 19:13 | RAD_ITS ---
STUDY: X-RAY CHEST REASON FOR EXAM: Female, 30 years old. Pt reports headache since yesterday; elevated BP and chest discomfort today. TECHNIQUE: Frontal view of the chest COMPARISON: 12 June 2020 FINDINGS: The lungs are clear and expanded. There is no demonstrated pleural abnormality. Normal size heart. Normal mediastinum and laya. Normal visualized pulmonary arteries. Normal visualized aortic arch and descending thoracic aorta. Normal visualized thoracic spine. Normal visualized ribs, clavicles, and shoulders. There is no demonstrated abnormality of the visualized soft tissue structures of the upper abdomen. RAD/Chest 1 View (Portable) IMPRESSION: Normal x-ray examination of the chest. Electronically Signed: Shilpi Espitia, at 19:35 EST Tel , Service support ,
[2020-08-06 19:25] LABS: Anion Gap 7 (5-15); BUN 13 mg/dL (7-18); BUN/Creat Ratio 15.8 RATIO (10-20); Calcium,Total 9.6 mg/dL (8.5-10.1); Chloride 104 mmol/L (98-107); Creatinine, Serum 0.82 mg/dL (0.55-1.02); EST Glomerular Filtration Rate 87 mL/min (>60); Est Glom Filt Rate - Afr Amer 105 mL/min (>60); Estimated Creatinine Clearance 82.98 ml/min; Glucose 93 mg/dL (74-106); Potassium 2.9 mmol/L (3.5-5.1); Sodium Level 138 mmol/L (136-145)
[2020-08-06 19:30] VITALS: BP 131/78; PULSE 85; RESP 20; O2SAT 98
[2020-08-06 20:10] VITALS: BP 147/94; PULSE 67; RESP 13; O2SAT 99
== END 2020-08-06 20:11 | disposition home or self-care (01) ==
LOC: ED 19:10
PROVIDERS: Emergency Provider Emergency Medicine; PCP Family Medicine
DX: I10 Essential (primary) hypertension (principal); R07.89 Other chest pain; R51.9 Headache, unspecified; E87.6 Hypokalemia; K21.9 Gastro-esophageal reflux disease without esophagitis; F41.9 Anxiety disorder, unspecified; Z79.899 Other long term (current) drug therapy
CPT/HCPCS: 70450; 71045; 80048; 84484; 85025; 87426; 93005; 96361; 96374; 96375; 99283; J7030; A4216

== ENCOUNTER 2020-09-17 15:00 | Emergency (ER) | payer MEDICAID, SELFPAY ==
[2020-09-11 09:57] VITALS: BMI 39.6
[2020-09-17 15:00] VITALS: BP 162/98; PULSE 104; RESP 18; TEMP 35.1; O2SAT 97; BMI 39.5
--- NOTE | 2020-09-17 15:25 | US_ITS ---
STUDY: ABDOMINAL ULTRASOUND - RIGHT UPPER QUADRANT REASON FOR VISIT: Female, 30 years old RUQ PAIN TECHNIQUE: Ultrasound evaluation of the right upper quadrant was performed with real-time and static weston-scale imaging. TECHNICAL QUALITY: Limited. Examination limited by bowel gas. COMPARISON: None. FINDINGS: Liver: The liver measures 18.4 cm. There is normal echogenicity of the liver. The bile ducts are within normal limits. There is hepatic color flow. The direction of portal flow is hepatopetal. There is no demonstrated mass lesion. Gallbladder: Normal distended gallbladder. The gallbladder wall measures 1.7 mm. There is a negative sonographic Owens''s sign. There is no pericholecystic fluid. There are 2 small gallstones and a small amount of sludge. Common Bile Duct (C.B.D.): The common bile duct measures 4.4 mm. Pancreas: Normal size of the head, body of the pancreas. Tail of the pancreas is suboptimally seen. There is normal echogenicity of the pancreas. There is no demonstrated pancreatic mass or cyst. Right Kidney: Normal size of the right kidney. The right kidney measures 11.7 cm. Normal renal cortex. The right cortex measures 1.2 cm. There is no demonstrated renal mass or cyst. There is no right hydronephrosis. US/Gallbladder IMPRESSION: Cholelithiasis. Electronically Signed: Aydin Burnham MD at 17:57 EST , Service support ,
[2020-09-17] MEDS: Ketorolac 15 MG/ML Vial IV (15:40)
[2020-09-17] MEDS: Ondansetron 4 MG/2 ML Vial IV (15:40)
[2020-09-17] MEDS: 0.9% Normal Saline 1,000 ML 1000 ML IV (15:41)
[2020-09-17 16:00] LABS: Mucous, Urine 0 SEEN /hpf (<or=2+)
--- NOTE | 2020-09-17 16:02 | ED.DCSUM_ITS ---
- ER Visit Summary Date of Service: 09/17/20 Chief Complaint: Abdominal pain History of Present Illness: The patient is a [address] Prieto and Dr. Lepe. She reports she has a history of gallstones and was supposed to have her gallbladder removed on September 21 but this was postponed because of her EKG. Patient reports that she has right upper quadrant pain that began a week ago and has been constant since that time. The pain waxes and wanes. She described as cramping. Is 10 of 10 worsened 7-10 currently. Is worsened by laying on her right side. States it is also worsened by eating anything. She reports that she had boiled chicken and water this morning at 9:00 and threw up. States she has vomited once today and 3 times yesterday. No blood in her emesis. She reports she has had diarrhea 4-5 times a day since September 12 when she was placed on doxycycline for a sinus infection. She denies any dysuria or frequency. No vaginal discharge or bleeding. Last menstrual period was approximate 1 month ago. States that she has had a fever at home of 101.4 degrees. Physical Examination: Vitals: Stable. Afebrile. General: Well-nourished and well-developed. Head: Normocephalic atraumatic. Neck: Supple, no lymphadenopathy. No JVD. Nontender. Cardiovascular: Regular rate and rhythm. No murmurs. Respiratory: No respiratory distress. Clear to auscultation bilaterally. Abdominal: Soft, mild right upper quadrant tenderness to palpation, nondistended, normal bowel sounds. No guarding, rebound, or peritoneal signs. Back: Nontender. Extremities: Nontender, no edema. Skin: Normal color, no rash. Neurologic: Alert and oriented ?3. Cranial nerves II through XII are intact. Normal strength and sensation. Psych: Normal affect. Test Results: CBC is normal. Chem-7 is normal. LFTs are remarkable for an AST of 14. Lipase is normal. UA shows 5-10 white blood cells and 10-25 epithelial cells. test is negative. Clinical Impression(s) from Imaging Studies Gallbladder Ultrasound 09/17/20 15:25 IMPRESSION: Cholelithiasis. Electronically Signed: Aydin Burnham MD at 17:57 EST , Service support , Emergency Department Course and Treatment: Patient had an IV placed. She given liter normal saline. She was given Toradol and Zofran IV. She is resting more comfortably. Treatment Plan: Patient was discussed with Dr. Prieto. She will try to move the patient surgery sooner. She be discharged with Percocet and Zofran. Return to the emergency department for any worsening symptoms. Disposition: To home in improved and stable condition. Impression: 1. Gallstones. 2. Abdominal pain, uncertain cause. This note was generated with [employer] dictation software. It may contain incorrect words, spelling, and punctuation that were not noted in review of the chart prior to signing ED Disposition - Plan for ED Patient: Instructions: ED Abdominal Pain Unkn Cause Fem Prescriptions: Oxycodone HCl/Acetaminophen [Percocet 5/325] 1 tablet PO Q6H PRN PRN 3 Days #12 tablet PRN Reason: Pain Ondansetron [Zofran Odt] 4 mg PO Q8H PRN PRN #10 tablet PRN Reason: Nausea Referrals: Jnanet Prieto MD [STAFF PHYSICIAN] - As soon as possible
[2020-09-17 16:11] LABS: Absolute Lymphocyte Count 2.14 X10^3/uL (0.83-4.51); Absolute Neutrophil Count 4.1 X10^3/uL (2.0-7.7); Basophil# 0.02 X10^3/uL; Basophil% 0.3 % (0-1); Eosinophil# 0.14 X10^3/uL; Hematocrit 45.2 % (37-47); Hemoglobin 14.1 g/dL (12.0-15.0); Lymphocyte # 2.14 X10^3/ul (4.0); Lymphocyte % 30.2 % (19-41); Mean Corp Hgb Conc 31.2 g/dL (32-36); Mean Corpuscular Hgb 26.5 pg (27.0-32.0); Mean Corpuscular Volume 84.8 fL (81-99); Mean Platelet Vol. 9.1 fl (6.2-12.0); Monocyte# 0.64 X10^3/uL; NRBC Flagged by Analyzer 0 % (0-5); Neutrophil # 4.12 X10^3/uL (2.7-7.7); Neutrophil % 58.2 % (47-70); Platelet Count 324 K/mm3 (150-450); RBC Distribution Width CV 13.2 % (11.6-14.6); Red Blood Count 5.33 M/mm3 (4.2-5.4); White Blood Count 7.1 K/mm3 (4.4-11.0)
[2020-09-17 16:20] LABS: Internal QC Validated? YES +Cl - CLEAR BKGD; Pregnancy, Serum, hCG Quali. NEGATIVE Negative
[2020-09-17 16:24] LABS: ALB/GLOB Ratio 1.2 RATIO (0.9-2.4); AST(SGOT) 14 U/L (15-37); Alanine Aminotransfer ALT/SGPT 27 U/L (13-56); Albumin, Serum 4.3 g/dL (3.2-5.0); Alkaline Phosphatase 92 U/L (45-117); Anion Gap 6 (5-15); BUN 13 mg/dL (7-18); BUN/Creat Ratio 14.5 RATIO (10-20); Calcium,Total 9.2 mg/dL (8.5-10.1); Chloride 107 mmol/L (98-107); EST Glomerular Filtration Rate 78 mL/min (>60); Est Glom Filt Rate - Afr Amer 95 mL/min (>60); Estimated Creatinine Clearance 72.29 ml/min; Globulin 3.7 g/dL (2.2-4.2); Glucose 86 mg/dL (74-106); Lipase 112 U/L (73-393); Potassium 3.6 mmol/L (3.5-5.1); Sodium Level 138 mmol/L (136-145)
[2020-09-17 16:33] LABS: Color, Urine Yellow (Yellow); Glucose, Dipstick Normal (Normal); Ketone-Dipstick 5 mg/dl (Negative); Leukocyte Esterase-Dipstick 500 /ul (Negative); Nitrite-Dipstick Negative (Negative); Occult Blood-Urine 10 /ul (Negative); Protein-Dipstick 15 mg/dl (Negative); Urine Bilirubin Dipstick Negative (Negative); Urine Clarity Cloudy (Clear); Urine Urobilinogen Normal (Normal)
[2020-09-17 17:09] LABS: Squamous Epithelial Cells - UA 10-25 SEEN /hpf (5-10)
[2020-09-17 17:10] LABS: Bacteria RARE /hpf (None Seen); White Blood Cells 5-10 SEEN /hpf (0-5)
[2020-09-17 17:11] LABS: Red Blood Cells-Urine 0-5 SEEN /hpf (0-5)
[2020-09-17 17:52] VITALS: RESP 18
== END 2020-09-17 18:35 | disposition home or self-care (01) ==
PROVIDERS: Emergency Provider Emergency Medicine; PCP Family Medicine
DX: K80.20 Calculus of gallbladder without cholecystitis without obstruction (principal); R10.11 Right upper quadrant pain
CPT/HCPCS: 76705; 80053; 81001; 83690; 84703; 85025; 96361; 96374; 96375; 99283; J7030; J2405

== ENCOUNTER 2020-09-28 16:22 | Emergency (ER) | payer MEDICAID, SELFPAY ==
[2020-09-22 10:27] VITALS: BMI 39.9
[2020-09-28 16:23] VITALS: BP 146/90; PULSE 97; RESP 18; TEMP 35.6; O2SAT 98; BMI 39.9
--- NOTE | 2020-09-28 16:44 | CT_ITS ---
STUDY: CT ABDOMEN AND PELVIS WITH CONTRAST REASON FOR EXAM: Female, 30 years old. FEVER, ABD PAIN, NAUSEA, RUQ PAIN RADIATION DOSAGE (If Supplied By Facility): CTDIvol = ( 15.82 ) mGy, DLP = ( 1106.79 ) mGycm TECHNIQUE: Transaxial images were obtained from the dome of the diaphragm to the symphysis pubis without oral contrast. IV 100mL Isovue-300 was administered. Sagittal and coronal images were reconstructed. Individualized dose optimization techniques were used for this CT. COMPARISON: Abdominal ultrasound 09/17/2020 FINDINGS: The visualized lung bases are unremarkable. The visualized portions of the heart are within normal limits. Normal liver. Normal gallbladder and extrahepatic biliary system. Normal spleen. Normal pancreas. Normal bilateral adrenal glands. Normal right kidney. Normal left kidney. Normal visualized stomach. Oral contrast in the small bowel. Increased stool throughout the colon. The appendix is visualized and appears normal. Normal abdominal aorta. Normal inferior vena cava. Normal retroperitoneum. Normal urinary bladder. 3 cm left adnexal cyst. Fat-containing umbilical hernia. Normal osseous structures. CT/Abdomen/Pelvis WITH Contrast IMPRESSION: Increased stool. No acute disease. Electronically Signed: Bjorn Moses MD at 19:24 EST , Service support ,
--- NOTE | 2020-09-28 16:53 | ED.DCSUM_ITS ---
- ER Visit Summary Date of Service: 09/28/20 Chief Complaint: [Abdominal pain] History of Present Illness: The patient is a 30 F [presents to the emergency department complaint of abdominal pain that started last evening. Patient describes pain in the right upper quadrant and epigastric region that she has had for some time but now pain also all over her abdomen in the right lower quadrant and left lower quadrant. Patient's had a fever today up to 101. Patient states that she is currently waiting to have her gallbladder removed by Dr. Jannet Prieto. Patient has a scheduled echocardiogram in 2 days and then will be able to schedule her surgery. Patient states that she had an ultrasound she believes about a week ago of her gallbladder that showed stones and sludge. Patient has had bilateral salpingectomy. She denies urinary symptoms. Patient denies cough or sore throat. No Covid exposures known.] Physical Examination: [HEENT-PERRLA, EOMI. Cranial nerves II through XII grossly intact. TMs clear. Mucous membranes moist. No adenopathy. Cardiovascular-regular rate and rhythm without murmur or ectopy Lungs-clear to auscultation, chest wall stable without crepitus or subcu emphysema Abdomen-normoactive bowel sounds, soft. Patient has tenderness palpation over the right upper quadrant and epigastric region that is mild. Patient also has diffuse tenderness over right lower quadrant and left lower quadrant but more prominent. No rebound, rigidity, or peritoneal signs. Extremities-intact ?4, normal range of motion, normal pulses, atraumatic] Test Results: [CBC with differential obtained showed a white count 6.9, hemoglobin 13.7, hematocrit 44. Chemistries unremarkable. LFTs were normal. Urinalysis was normal. Patient had a CT scan of the abdomen pelvis with IV and p.o. contrast that showed increased stool throughout the colon as well as a normal appendix. Patient had a 3 cm left adnexal cyst noted.] Emergency Department Course and Treatment: [IV line established on arrival. P atient was given Zofran 4 mg IV initially. Initially patient did not want a thing for pain but then the pain worsened and she received 4 mg of morphine which did give her good pain relief. Case was discussed with patient's surgeon Dr. Jannet Prieto who asked that I send patient home with a prescription for pain medication. Patient to keep her appointment to have her echocardiogram done in 2 days and then schedule the cholecystectomy as an outpatient. Treatment Plan: [Patient advised to return if increasing pain, fever, vomiting, or condition should worsen anyway. She will be given a prescription for Vicodin.] Disposition: [Discharged home in stable condition] Impression: [Abdominal pain Cholelithiasis Biliary colic Left adnexal cyst] This note was generated with [employer] dictation software. It may contain incorrect words, spelling, and punctuation that were not noted in review of the chart prior to signing ED Disposition - Plan for ED Patient: Referrals: Mayur Lepe MD [Primary Care Provider] -
[2020-09-28 16:55] LABS: Absolute Lymphocyte Count 2.05 X10^3/uL (0.83-4.51); Absolute Neutrophil Count 4.1 X10^3/uL (2.0-7.7); Basophil# 0.03 X10^3/uL; Basophil% 0.4 % (0-1); Eosinophil# 0.11 X10^3/uL; Eosinophils% 1.6 % (0-5); Hematocrit 43.7 % (37-47); Hemoglobin 13.7 g/dL (12.0-15.0); Lymphocyte # 2.05 X10^3/ul (4.0); Lymphocyte % 29.6 % (19-41); Mean Corp Hgb Conc 31.4 g/dL (32-36); Mean Corpuscular Hgb 26.8 pg (27.0-32.0); Mean Corpuscular Volume 85.4 fL (81-99); Mean Platelet Vol. 9.2 fl (6.2-12.0); Monocyte# 0.59 X10^3/uL; Monocyte% 8.5 % (0-10); NRBC Flagged by Analyzer 0 % (0-5); Neutrophil # 4.14 X10^3/uL (2.7-7.7); Neutrophil % 59.8 % (47-70); Platelet Count 303 K/mm3 (150-450); RBC Distribution Width CV 13.1 % (11.6-14.6); RBC Distribution Width SD 40.7 fl (35.1-43.9); Red Blood Count 5.12 M/mm3 (4.2-5.4); White Blood Count 6.9 K/mm3 (4.4-11.0)
[2020-09-28 16:58] LABS: Bacteria 0 SEEN /hpf (None Seen); Mucous, Urine 0 SEEN /hpf (<or=2+); Red Blood Cells-Urine 0 SEEN /hpf (0-5)
[2020-09-28] MEDS: 0.9% Normal Saline 1,000 ML 125 ML IV (17:03)
[2020-09-28 17:08] LABS: Color, Urine Yellow (Yellow); Glucose, Dipstick Normal (Normal); Ketone-Dipstick Negative (Negative); Leukocyte Esterase-Dipstick 25 /ul (Negative); Nitrite-Dipstick Negative (Negative); Occult Blood-Urine Negative /ul (Negative); Protein-Dipstick Negative (Negative); Urine Bilirubin Dipstick Negative (Negative); Urine Clarity Clear (Clear); Urine Urobilinogen Normal (Normal)
[2020-09-28 17:14] LABS: ALB/GLOB Ratio 1.2 RATIO (0.9-2.4); AST(SGOT) 13 U/L (15-37); Alanine Aminotransfer ALT/SGPT 32 U/L (13-56); Albumin, Serum 4.2 g/dL (3.2-5.0); Alkaline Phosphatase 95 U/L (45-117); Anion Gap 6 (5-15); BUN 13 mg/dL (7-18); BUN/Creat Ratio 14.8 RATIO (10-20); Calcium,Total 9.5 mg/dL (8.5-10.1); Chloride 107 mmol/L (98-107); Creatinine, Serum 0.88 mg/dL (0.55-1.02); EST Glomerular Filtration Rate 80 mL/min (>60); Est Glom Filt Rate - Afr Amer 97 mL/min (>60); Estimated Creatinine Clearance 73.93 ml/min; Globulin 3.6 g/dL (2.2-4.2); Glucose 104 mg/dL (74-106); Lipase 111 U/L (73-393); Potassium 3.5 mmol/L (3.5-5.1); Protein, Total 7.8 g/dL (6.4-8.2); Sodium Level 140 mmol/L (136-145)
[2020-09-28] MEDS: Ondansetron 4 MG/2 ML Vial IV ×2 (17:24→19:00)
[2020-09-28 17:26] LABS: Squamous Epithelial Cells - UA 5-10 SEEN /hpf (5-10); White Blood Cells 0-5 SEEN /hpf (0-5)
[2020-09-28 18:02] LABS: Lactic Acid 0.7 mmol/L (0.4-1.9)
[2020-09-28 18:23] VITALS: BP 138/76; PULSE 71; RESP 18; O2SAT 98
[2020-09-28] MEDS: Morphine 4 MG/ML Syringe IV (19:00)
--- NOTE | 2020-09-28 19:36 | ED.DEP ---
ED Disposition - Plan for ED Patient: Instructions: ED Abdominal Pain Unkn Cause Fem, ED Gallstones with Biliary Colic Prescriptions: Hydrocodone Bitart/Apap 5-325 [[place] 5MG-325MG] 1 tab PO Q4H PRN PRN 2 Days #14 tab PRN Reason: Pain Prescription Printed Referrals: Mayur Lepe MD [Primary Care Provider] - Jannet Prieto MD [STAFF PHYSICIAN] - As soon as possible
== END 2020-09-28 20:19 | disposition home or self-care (01) ==
LOC: ED 17:00
PROVIDERS: Emergency Provider Emergency Medicine; PCP Family Medicine
DX: K80.70 Calculus of gallbladder and bile duct without cholecystitis without obstruction (principal); E27.8 Other specified disorders of adrenal gland; I10 Essential (primary) hypertension
CPT/HCPCS: 74177; 80053; 81001; 83605; 83690; 85025; 96361; 96374; 96375; 96376; 99282; J7030; Q9967; A4216; J2405

== ENCOUNTER → 2020-09-30 09:33 | Outpatient (CLI) | payer MEDICAID, SELFPAY ==
[2020-09-22 10:27] VITALS: BMI 39.9
[2020-09-28 16:23] VITALS: BMI 39.9
--- NOTE | 2020-09-30 09:34 | ECHOD_ITS ---
Reason For Study: HYPERTENSION Procedure This was a 2D Doppler, Color Flow transthoracic echocardiogram. Exam performed in department. Left Ventricle Normal LV size. Left ventricular systolic function is normal. The estimated ejection fraction is 60 %. Normal diastology for age. No regional wall motion abnormalities noted. Right Ventricle Normal RV size. Normal systolic function. Atria Normal left atrium. Normal right atrium. Mitral Valve Normal mitral valve. Tricuspid Valve Normal tricuspid valve. Mild tricuspid valve insufficiency. Aortic Valve Normal aortic valve. Trisinus/trileaflet aortic valve. Pulmonic Valve Normal pulmonic valve. Great Vessels Normal aortic root. The pulmonary artery is normal size. Normal inferior vena cava. Pericardium/Pleural No pericardial effusion. MMode/2D Measurements & Calculations LVIDd: 4.5 cm IVSd: 1.2 cm Ao root diam: 2.9 cm LVIDs: 3.0 cm LVPWd: 1.1 cm RVDd: 3.0 cm FS: 33.3 % LAV(MOD-bp): 55.3 ml LA A4 area: 18.1 cm2 LA dimension(2D): 3.5 cm LAV(MOD-bp) Indexed: 27.9 ml/m2 LAV(MOD-sp2): 48.9 ml LAV(MOD-sp4): 55.4 ml RA A4 area: 15.3 cm2 Time Measurements MV dec time: 0.20 sec Doppler Measurements & Calculations MV E max edwin: 84.6 cm/sec Lat Peak E' Edwin: 14.8 cm/sec Med Peak E' Edwin: 11.7 cm/sec MV A max edwin: 53.6 cm/sec E/E' lat: 5.7 E/E' med: 7.2 MV E/A: 1.6 Ao V2 max: 122.9 cm/sec LV V1 max: 92.5 cm/sec PA V2 max: 106.8 cm/sec Ao max P.0 mmHg LV V1 max P.4 mmHg TR max edwin: 225.0 cm/sec TR max P.2 mmHg Interpretation Summary Normal LV size. Left ventricular systolic function is normal. The estimated ejection fraction is 60 %. Normal diastology for age. Ordering Physician: Jemal Pichardo Referring Physician: Kai Lepe Performed By: Kayleigh Burrows, BERHANE, RVT
== END ==
PROVIDERS: PCP Family Medicine; Referring Provider Internal Medicine Cardiovascular Disease; Visit Provider Internal Medicine Cardiovascular Disease
DX: I10 Essential (primary) hypertension (principal); R94.31 Abnormal electrocardiogram [ECG] [EKG]
CPT/HCPCS: 93306

== ENCOUNTER 2020-10-02 18:45 | Emergency (ER) | payer MEDICAID, SELFPAY ==
[2020-10-02 18:45] VITALS: BP 163/96; PULSE 76; RESP 16; TEMP 35.9; O2SAT 98; BMI 39.9
--- NOTE | 2020-10-02 18:57 | ED.DCSUM_ITS ---
History of Present Illness Chief Complaint: Abd Pain Informant: Patient Narrative: 30-year-old female presenting with right upper quadrant abdominal pain and nausea vomiting. Patient states that she had a gallbladder ultrasound earlier this month which showed cholelithiasis. She was scheduled for laparoscopic cholecystectomy with Dr. Prieto but it was canceled after anesthesiology required an echocardiogram. This was finally obtained and she is supposed to have her surgery on Sunday. She states that she has been vomiting most of the day. She notes increased pain in the right upper quadrant. No fevers. - Past Medical History (1) Cholelithiasis Status: Chronic (2) Essential (primary) hypertension Status: Chronic (3) Hepatic steatosis Status: Chronic Past Medical History - Allergies and Home Meds Allergies/Adverse Reactions: Allergies adhesive tape Allergy (Verified 10/02/20 18:48) Hives cephalexin monohydrate [From Keflex] Allergy (Verified 10/02/20 18:48) Hives sertraline [From Zoloft] Adverse Reaction (Unknown, Verified 10/02/20 18:48) unknown powder in latex gloves Allergy (Uncoded 10/02/20 18:48) Rash strong chemicals Adverse Reaction (Unknown, Uncoded 10/02/20 18:48) unknown Primary Care Physician: Mayur Lepe MD [Primary Care Provider] - Surgical History: noncontributory, - - Tubal ligation Lives: With Family Smoking Status: Former smoker Drugs: None Review of Systems General: Denies: Chills, Fever, Sweats Eyes: Denies: Visual changes - bilaterally, Diplopia ENT: Denies: Rhinorrhea, Sore throat Cardiovascular: Denies: Chest pain, Palpitations Respiratory: Denies: Dyspnea, Cough, Dyspnea on exertion Gastrointestinal: Reports: Abdominal pain, Nausea, Vomiting. Denies: Diarrhea, Melena, Hematochezia Genitourinary: Denies: Dysuria, Hematuria, Frequency Musculoskeletal: Denies: Back pain, Extremity Pain Skin: Denies: Rash, Wounds Neurological: Denies: Headache, Weakness, Numbness Physical Exam Vital Signs/Narrative: Vital Signs Temp Pulse Resp BP Pulse Ox 10/02/20 18:45 96.7 F L 76 16 163/96 H 98 Inital Vital Signs reviewed: Yes General: Well nourished, Well developed, Obese, No Acute Distress Head: Normocephalic, Atraumatic Eyes: Perrl, EOMI ENT: Moist mucous membranes, No rhinorrhea Neck: Supple, Nontender Cardiovascular: Regular rate, Regular rhythm, No murmurs Respiratory: No distress, CTA bilaterally, Chest nontender Abdomen: Soft, Nondistended, Normal bowel sounds, Tender Back: Nontender, Normal Inspection Extremities: Nontender, No edema Skin: Normal color, No rash Neurological: Alert, Oriented x3, Cranial nerves II-XII grossly intact, Normal Strength, Normal Sensation Psychological: Normal affect, Normal Mood Diagnostic/Tx/Re-eval Laboratory Last Values WBC 7.6 K/mm3 (4.4-11.0) 10/02/20 19:52 Corrected WBC Cancelled 10/02/20 19:15 RBC 4.92 M/mm3 (4.2-5.4) 10/02/20 19:52 Hgb 13.3 g/dL (12.0-15.0) 10/02/20 19:52 Hct 41.9 % (37-47) 10/02/20 19:52 MCV 85.2 fL (81-99) 10/02/20 19:52 MCH 27.0 pg (27.0-32.0) 10/02/20 19:52 MCHC 31.7 g/dL (32-36) L 10/02/20 19:52 RDW Std Deviation 40.9 fl (35.1-43.9) 10/02/20 19:52 RDW Coeff of Latoya 13.2 % (11.6-14.6) 10/02/20 19:52 Plt Count 292 K/mm3 (150-450) 10/02/20 19:52 MPV 9.2 fl (6.2-12.0) 10/02/20 19:52 Immature Gran % (Auto) 0.300 % (0.0-0.9) 10/02/20 19:52 Neut % (Auto) 53.5 % (47-70) 10/02/20 19:52 Lymph % (Auto) 33.0 % (19-41) 10/02/20 19:52 [place] % (Auto) 10.1 % (0-10) H 10/02/20 19:52 Eos % (Auto) 2.6 % (0-5) 10/02/20 19:52 Baso % (Auto) 0.5 % (0-1) 10/02/20 19:52 Absolute Neuts (auto) 4.0 X10^3/uL (2.0-7.7) 10/02/20 19:52 Absolute Lymphs (auto) 2.49 X10^3/uL (0.83-4.51) 10/02/20 19:52 Total Counted Cancelled 10/02/20 19:15 Neutrophils % (Manual) Cancelled 10/02/20 19:15 Band Neutrophils % Cancelled 10/02/20 19:15 Lymphocytes % (Manual) Cancelled 10/02/20 19:15 Monocytes % (Manual) Cancelled 10/02/20 19:15 Eosinophils % (Manual) Cancelled 10/02/20 19:15 Basophils % (Manual) Cancelled 10/02/20 19:15 Metamyelocytes % Cancelled 10/02/20 19:15 Myelocytes % Cancelled 10/02/20 19:15 Promyelocytes % Cancelled 10/02/20 19:15 Blast Cells % Cancelled 10/02/20 19:15 Plasma Cell % (Manual) Cancelled 10/02/20 19:15 Other Cells % Cancelled 10/02/20 19:15 Nucleated RBC % 0 % (0-5) 10/02/20 19:52 Nucleated RBCs/100 WBC Cancelled 10/02/20 19:15 Differential Comment Cancelled 10/02/20 19:15 Diff Path Review Cancelled 10/02/20 19:15 Hypersegmented Neuts Cancelled 10/02/20 19:15 Atypical Lymphocytes Cancelled 10/02/20 19:15 Reactive Lymphocytes Cancelled 10/02/20 19:15 Smudge Cells Cancelled 10/02/20 19:15 Toxic Granulation Cancelled 10/02/20 19:15 Toxic Vacuolation Cancelled 10/02/20 19:15 Dohle Bodies Cancelled 10/02/20 19:15 Leonel Rods Cancelled 10/02/20 19:15 Platelet Estimate Cancelled 10/02/20 19:15 Plt Morphology Comment Cancelled 10/02/20 19:15 RBC Morphology Cancelled 10/02/20 19:15 RBC Morphology Cancelled 10/02/20 19:15 Polychromasia Cancelled 10/02/20 19:15 Hypochromasia Cancelled 10/02/20 19:15 Poikilocytosis Cancelled 10/02/20 19:15 Basophilic Stippling Cancelled 10/02/20 19:15 Anisocytosis Cancelled 10/02/20 19:15 Microcytosis Cancelled 10/02/20 19:15 Macrocytosis Cancelled 10/02/20 19:15 Spherocytes Cancelled 10/02/20 19:15 Sickle Cells Cancelled 10/02/20 19:15 Target Cells Cancelled 10/02/20 19:15 Tear Drop Cells Cancelled 10/02/20 19:15 Ovalocytes Cancelled 10/02/20 19:15 Stomatocytes Cancelled 10/02/20 19:15 Redman-Perdido Bodies Cancelled 10/02/20 19:15 [place] Cells Cancelled 10/02/20 19:15 Bite Cells Cancelled 10/02/20 19:15 Crenated Cell Cancelled 10/02/20 19:15 Acanthocytes (Spur) Cancelled 10/02/20 19:15 Rouleaux Cancelled 10/02/20 19:15 Schistocytes Cancelled 10/02/20 19:15 Sodium 137 mmol/L (136-145) 10/02/20 19:15 Potassium 3.9 mmol/L (3.5-5.1) 10/02/20 19:15 Chloride 109 mmol/L (98-107) H 10/02/20 19:15 Carbon Dioxide 23.0 mmol/L (21.0-32.0) 10/02/20 19:15 Anion Gap 5 (5-15) 10/02/20 19:15 BUN 11 mg/dL (7-18) 10/02/20 19:15 Creatinine 0.77 mg/dL (0.55-1.02) 10/02/20 19:15 Estim Creat Clear Calc 84.49 ml/min 10/02/20 19:15 Est GFR (MDRD) Af Amer 114 mL/min (>60) 10/02/20 19:15 Est GFR (MDRD) Non-Af 94 mL/min (>60) 10/02/20 19:15 BUN/Creatinine Ratio 14.3 RATIO (10-20) 10/02/20 19:15 Glucose 92 mg/dL (74-106) 10/02/20 19:15 Calcium 9.1 mg/dL (8.5-10.1) 10/02/20 19:15 Total Bilirubin 0.20 mg/dL (0.20-1.00) 10/02/20 19:15 AST 19 U/L (15-37) 10/02/20 19:15 ALT 29 U/L (13-56) 10/02/20 19:15 Alkaline Phosphatase 79 U/L (45-117) 10/02/20 19:15 Total Protein 7.3 g/dL (6.4-8.2) 10/02/20 19:15 Albumin 3.9 g/dL (3.2-5.0) 10/02/20 19:15 Globulin 3.4 g/dL (2.2-4.2) 10/02/20 19:15 Albumin/Globulin Ratio 1.1 RATIO (0.9-2.4) 10/02/20 19:15 Lipase 90 U/L (73-393) 10/02/20 19:15 Serum , Qual NEGATIVE Negative 10/02/20 19:15 - Medical Decision Making Patient received morphine and Zofran. Basic blood work was obtained. Showed a normal white blood cell count. Normal LFTs BMP and lipase. Patient's pain is improved not resolved. We will redose her. Patient also received a liter of IV fluids. Case was discussed with Dr. Prieto. Patient will be discharged home. I will write for Percocet Toradol and Zofran. ED Disposition - Plan for ED Patient: Disposition: Home or Assisted Living Diagnosis: Cholelithiasis, Biliary colic, Abdominal pain, Vomiting Instructions: ED Gallstones with Biliary Colic Prescriptions: Oxycodone HCl/Acetaminophen [Percocet 5/325] 1 tablet PO Q6H PRN PRN 3 Days #12 tablet PRN Reason: Pain Transmission Status: [facility] Ketorolac [Toradol] 10 mg PO Q8H PRN PRN #9 tab PRN Reason: Pain Transmission Status: P[facility] to [facility] Ondansetron [Zofran Odt] 4 mg PO Q6H PRN PRN #10 tab PRN Reason: Nausea Transmission Status: [facility] Referrals: Jannet Prieto MD [STAFF PHYSICIAN] - Keep Shawna appointment
[2020-10-02] MEDS: Morphine 4 MG/ML Syringe IV ×2 (19:24→21:17)
[2020-10-02] MEDS: Ondansetron 4 MG/2 ML Vial IV ×2 (19:25→21:17)
[2020-10-02] MEDS: 0.9% Normal Saline 1,000 ML 999 ML IV (19:45)
[2020-10-02 19:49] LABS: ALB/GLOB Ratio 1.1 RATIO (0.9-2.4); AST(SGOT) 19 U/L (15-37); Alanine Aminotransfer ALT/SGPT 29 U/L (13-56); Albumin, Serum 3.9 g/dL (3.2-5.0); Alkaline Phosphatase 79 U/L (45-117); Anion Gap 5 (5-15); BUN 11 mg/dL (7-18); BUN/Creat Ratio 14.3 RATIO (10-20); Calcium,Total 9.1 mg/dL (8.5-10.1); Chloride 109 mmol/L (98-107); Creatinine, Serum 0.77 mg/dL (0.55-1.02); EST Glomerular Filtration Rate 94 mL/min (>60); Est Glom Filt Rate - Afr Amer 114 mL/min (>60); Estimated Creatinine Clearance 84.49 ml/min; Globulin 3.4 g/dL (2.2-4.2); Glucose 92 mg/dL (74-106); Lipase 90 U/L (73-393); Potassium 3.9 mmol/L (3.5-5.1); Protein, Total 7.3 g/dL (6.4-8.2); Sodium Level 137 mmol/L (136-145)
[2020-10-02 19:57] LABS: Absolute Lymphocyte Count 2.49 X10^3/uL (0.83-4.51); Basophil# 0.04 X10^3/uL; Basophil% 0.5 % (0-1); Eosinophils% 2.6 % (0-5); Hematocrit 41.9 % (37-47); Hemoglobin 13.3 g/dL (12.0-15.0); Lymphocyte # 2.49 X10^3/ul (4.0); Mean Corp Hgb Conc 31.7 g/dL (32-36); Mean Corpuscular Volume 85.2 fL (81-99); Mean Platelet Vol. 9.2 fl (6.2-12.0); Monocyte# 0.76 X10^3/uL; Monocyte% 10.1 % (0-10); NRBC Flagged by Analyzer 0 % (0-5); Neutrophil # 4.04 X10^3/uL (2.7-7.7); Neutrophil % 53.5 % (47-70); Platelet Count 292 K/mm3 (150-450); RBC Distribution Width CV 13.2 % (11.6-14.6); RBC Distribution Width SD 40.9 fl (35.1-43.9); Red Blood Count 4.92 M/mm3 (4.2-5.4); White Blood Count 7.6 K/mm3 (4.4-11.0)
[2020-10-02 19:58] LABS: Internal QC Validated? YES +Cl - CLEAR BKGD
[2020-10-02 19:59] LABS: Pregnancy, Serum, hCG Quali. NEGATIVE Negative
[2020-10-02 21:28] VITALS: BP 141/78; PULSE 87; RESP 17; O2SAT 98
== END 2020-10-02 21:33 | disposition home or self-care (01) ==
PROVIDERS: Emergency Provider Emergency Medicine; PCP Family Medicine
DX: K80.70 Calculus of gallbladder and bile duct without cholecystitis without obstruction (principal); K76.0 Fatty (change of) liver, not elsewhere classified; I10 Essential (primary) hypertension; E66.9 Obesity, unspecified; Z68.39 Body mass index [BMI] 39.0-39.9, adult; Z79.899 Other long term (current) drug therapy; Z87.891 Personal history of nicotine dependence
CPT/HCPCS: 80053; 83690; 84703; 85025; 96361; 96374; 96375; 96376; 99283; J7030; A4216; J2405

== ENCOUNTER 2020-10-05 11:17 | Day surgery (SDC) | payer MEDICAID, SELFPAY ==
[2020-09-11 09:57] VITALS: BMI 39.6
--- NOTE | 2020-10-04 16:34 | HP.PCM_ITS ---
History and Physical Date of Admission: 10/05/20 HISTORY AND PHYSICAL ? Malena Gutiérrez 1990 ? ? REFERRING PHYSICIAN: Kai Lepe * ? CHIEF COMPLAINT: No chief complaint on file. ? HPI: The patient is a 30 year old female presents with RUQ abdominal pain and found to have cholelithiasis. She is very symptomatic, she had presented to [facility] ED multiple episodes due to the pain, but surgery was postponed due to pending cardiology workup. Cardiology has cleared patient for surgery. She notes that her mother had gallbladder disease She states that the RUQ abdominal pain was intermittent and mild for weeks prior to presentation but in the past few days, the pain is very severe causing her to double over in pain. She notes nausea, but denies emesis. She denies biliary obstructive signs such as jaundice or icterus. ? US 09/10/2020 IMPRESSION: Hepatic steatosis. Cholelithiasis. ?Possible minimal pericholecystic fluid is seen. ?No gallbladder wall thickening. Common bile duct which is within normal limits. ?? PAST MEDICAL HISTORY ? Abnormal glandular Papanicolaou smear of cervix 2011 ? Abn. Pap smear (cervix) ? Anxiety 2011 ? Attention deficit disorder with hyperactivity(314.01) ? ? Depression ? ? Endometriosis ? ? Esophageal reflux ? ? High arches ? ? s/p surgical correction ? Hypertension ? ? Morbid obesity (HCC) ? ? Pre-eclampsia, delivered 04/2013 ? w/ delivery ? PAST SURGICAL HISTORY ? COLPOSCOPY ? 07/2012 ? IUD INSERTION ([employer])_*FL ? 12/11/07 ? mirena, REMOVED 07/2012 ? PAST SURGICAL HISTORY OF ? ? ? ankle surgery x2 left and x1 right-high arches ? PAST SURGICAL HISTORY OF ? 09/2019 ? fallopian tube removal ? PAST SURGICAL HISTORY OF ? 2016 ? exploratory laparoscopy ? ? Current Outpatient Medications ? lisinopril-hydroCHLOROthiazide (PRINZIDE,ZESTORETIC) 10-12.5 mg per tablet Take 1 tablet by mouth once daily. ? doxycycline hyclate (VIBRAMYCIN) 100 mg capsule ? ? escitalopram oxalate (LEXAPRO) 20 mg tablet Take 1 tablet by mouth once daily. ? SUMAtriptan (IMITREX) 50 mg tablet Take one tablet at onset of headache, may repeat in 2 hours if needed ? ondansetron orally disintegrating (ZOFRAN ODT) 4 mg disintegrating tablet Take 1 tablet by mouth every 6 hours as needed for Nausea/Vomiting. ? pantoprazole DR (PROTONIX) 40 mg tablet Take 1 tablet by mouth daily before breakfast. Take on empty stomach, 1/2 hr before meal. ? ? ALLERGIES: Cephalexin, Latex, Strong Chemicals [Other], and Zoloft [Sertraline] ? PERSONAL HISTORY: Social History Tobacco Use ? Smoking status: Former Smoker ? ? Packs/day: 0.50 ? ? Years: 2.00 ? ? Pack years: 1.00 ? ? Types: Cigarettes ? ? Quit date: 01/07/2012 ? ? Years since quittin.6 ? Smokeless tobacco: Never Used Substance Use Topics ? Alcohol use: Yes ? ? Comment: rarely ? Drug use: No ? FAMILY HISTORY ? Diabetes Mother ? ? Fibromyalgia Mother ? ? Heart disease Mother ? ? Anxiety disorder Mother ? ? Depression Mother ? ? Hypertension Father ? ? No Known Problems Brother ? ? Diabetes Maternal Grandmother ? ? Hypertension Maternal Grandmother ? ? Dementia Maternal Grandmother ? ? Colon Cancer Maternal Grandfather ? ? No Known Problems Sister ? ? No Known Problems Sister ? ? Alzheimer's Disease Other ? ? MGGF ? Stroke Other ? ? MGGM ? ADD/ADHD Son ? ? other (sensory processing disorder) Son ? ? ? REVIEW OF SYSTEMS: General - denies fevers, denies anorexia, denies weight loss Cardiovascular - denies chest pain, denies history of PA Pulmonary - denies shortness of breath, denies coughing up blood Gastrointestinal - has acid indigestion, see HPI, denies hematemesis, denies blood in stools Neurological - denies seizures, denies chronic numbness/weakness of extremities Genitourinary - denies burning with urination, denies blood in urine Hematological - denies spontaneous/prolonged bleeding Skin - denies nonhealing skin wounds Musculoskeletal - no new muscle/bone pain Endocrine - denies diabetes, no thyroid problems Psychological ? admits to anxiety, denies hallucinations ? PHYSICAL EXAMINATION: General: The patient is 30 year old female, well nourished, well hydrated in no acute distress. The patient is oriented to time, place, and person. VITALS: Pulse 109, temperature 36.7 ?C (98.1 ?F), Ht: 5' 2 3/4 weight 100.6 kg (221 lb 12.8 oz), last menstrual period 06/08/2020, SpO2 99 %, unknown if currently . Body mass index is 39.6 kg/m?. ? Head ? Normocephalic. EOM intact with sclera clear and no icterus noted. Mouth with mucus membranes moist. Neck - supple with no jugular venous distention noted. Trachea is midline. Lungs ? clear to auscultation. Normal breath sounds. No rales/rhonchi/wheezing noted. No labored breathing noted, such as retractions. No cough heard. Heart ? normal S1 and S2 auscultated. No rubs/clicks/murmurs noted. Regular rate. Abdomen ? soft and benign. Points to pain in the RUQ but no presently, Normal bowel sounds. No abdominal bruits noted. Difficult to determine if any masses or organomegaly due to body habitus. Extremities ? no calf tenderness noted. No pitting edema noted. Skin ? normal skin integrity. Neurological ? gait normal, no focal deficits noted. Psych ? calm and appropriate ? RADIOLOGIC STUDIES: As Noted ? IMPRESSION: RUQ abdominal pain, cholelithiasis ? PLAN: I have discussed the above with the patient. I have offered laparoscopic cholecystectomy, possible cholangiograms I have explained the procedure to the patient. I have counseled the patient as to the risks of the procedure, including but not limited to: infection, bleeding, injury to any blood vessels/nerves, scar tissue, injury to any intrabdominal organs, injury to bowel/bladder, injury to the common bile duct/biliary tree, bile leakage, intraabdominal abscess/bleeding, hernias at incisional sites, wound infections, complications of anesthesia, etc. ? the patient understands. ? The patient was offered a surgery/procedure . The provider and patient have discussed in detail the risk of exposure to and/or potential harm posed by the COVID-19 virus with having a surgery/procedure at this time versus the risk of? delaying the surgery/procedure. It is not possible to know either the risk of delaying the surgery or procedure or chance of getting an infection with perfect accuracy, but a joint decision was made between the patient and the provider ?to proceed at this time with the scheduled surgery/procedure. ? The patient wishes to proceed. I have answered all questions to the patient?s satisfaction and the patient has no further questions. ? Jannet Prieto MD
[2020-10-05] VITALS (9 sets, daily range): BP systolic 106–134; BP diastolic 56–81; PULSE 75–99; RESP 16; TEMP 36.4–36.9; O2SAT 99–100; BMI 39.4
--- NOTE | 2020-10-05 | GALL_PTH ---
PATIENT: FALLON LUCIO LOC: [facility] U#:[id number] AGE/SX: 30/F ROOM: RE10/05/[address]: Dr. Jannet Prieto MD : 1990 BED: DIS: 10/05/2020 SPEC #: [id number] RECD: 10/05/20 14:45 STATUS: GRAZYNA JADYN #: [id number] RAMIRO: 10/05/20 00:[address]: Jannet Prieto DEPT: SURGICAL PATHOLOGY RECD BY: Jayashree Rabago ENTERED: 10/06/20 08:45 SP TYPE: TONEY GALVAN DR: Dr. Mayur Lepe MD Tissues: Gallbladder, NOS Procedures: Surgery Specimen Level III HEADER OPERATION: Laparoscopic cholecystectomy PRE-OP DIAGNOSIS: RUAndrade abdominal pain, cholelithiasis TISSUE SUBMITTED: Gallbladder MICROSCOPIC DIAGNOSIS Gallbladder, cholecystectomy: Chronic cholecystitis, cholelithiasis and cholesterolosis. SJ:vilma 10/07/2020 MICROSCOPIC DESCRIPTION Slides are reviewed. GROSS DESCRIPTION Received is one container labeled with the patient's name and designated gallbladder. The specimen consists of a gallbladder measuring 6 cm in length and up to 2 cm in diameter. The external surface is pink-garcia, smooth and glistening for the most part. Focally it is granular, hemorrhagic and contains cautery artifact. The gallbladder contains green-yellow mucoid bile and multiple, variably sized greenish-brown stones measuring in aggregate 1.5 x 1 x 0.5 cm and 0.1 to 0.5 cm in greatest dimension. The mucosa is bile-stained and without any mass lesions. The gallbladder wall measures up to 0.3 cm in thickness. [place] Pigeon Setter sections from the gallbladder and the cystic duct are submitted in one cassette. / SJ:rg 10/06/20 TC:3 [facility]: [id number]
[2020-10-05] MEDS: Lactated Ringers 1,000 ML 75 ML IV ×3 (11:54→14:44)
--- NOTE | 2020-10-05 12:31 | DCINST_ITS ---
Discharge Diet: No Restrictions Discharge Activity: Return to Normal Activity, May not drive while taking narcotic pain medications. Lifting Restrictions: no lifting greater than 20 pounds for two weeks Call your doctor if your incision/area has: Continuous Slow Oozing, Foul Smelling Discharge Additional Instructions: Recommended pain control regimen - May take 600 mg ibuprofen (Motrin) and then in 3-4 hours, may take 650 mg acetaminophen (Tylenol), then in 3-4 hours may take 600 mg ibuprofen, then in 3- 4 hours may take 650 mg acetaminophen and so on for 2-3 days May take narcotic pain medication for pain that is not controlled by above and at night for comfort through the night Leave dressings in place May get dressings wet in shower - do not scrub in the area and pat dry Do not soak - no tub baths/swimming Avoid carbonated beverages for a couple of days as they may cause bloating which may cause you discomfort after abdominal surgery You may have bleeding at the dressing sites. If small amounts and not seeping through the dressing, do not worry - leave dressing in place. If starting to seep through the dressing, you may remove the dressing and take a clean wash clothe and apply direct pressure to the area for at least an hour and then apply a new clean bandaid at the site. If it still has not stopped bleeding, please call the office during the day or the [facility] grinder operator external tool at [phone] after hours and ask for Dr. Prieto Please call for a follow up appointment at the office to be seen in 1-2 weeks for a date and time available at your convenience. Call . Allergies/Adverse Reactions: Allergies adhesive tape Allergy (Verified 10/05/20 11:41) Hives cephalexin monohydrate [From Keflex] Allergy (Verified 10/05/20 11:41) Hives sertraline [From Zoloft] Adverse Reaction (Unknown, Verified 10/05/20 11:41) unknown powder in latex gloves Allergy (Uncoded 10/05/20 11:41) Rash strong chemicals Adverse Reaction (Unknown, Uncoded 10/05/20 11:41) unknown Medications to take at Discharge Pantoprazole Sodium [Protonix] 40 mg PO DAILY #30 tab 06/13/20 Lisinopril/Hydrochlorothiazide [Lisinopril-Hctz 10-12.5 mg Tab] 1 ea PO DAILY #30 tab 08/06/20 escitalopram oxalate 20 mg tablet 20 mg PO DAILY 09/11/20 Sumatriptan Succinate [Imitrex] 50 mg PO .X1 PRN 09/16/20 lisinopril 10 mg tablet 10 mg PO DAILY #90 tab 09/22/20 Ketorolac [Toradol] 10 mg PO Q8H PRN PRN #9 tab 10/02/20 Ondansetron [Zofran Odt] 4 mg PO Q6H PRN PRN #10 tab 10/02/20 Hydrocodone Bitart/Apap 5-325 [[place] 5MG-325MG] 1 tablet PO Q8H PRN PRN 5 Days #15 tablet 10/05/20 The following prescriptions were given: Hydrocodone Bitart/Apap 5-325 [[place] 5MG-325MG] 1 tablet PO Q8H PRN PRN 5 Days #15 tablet PRN Reason: Pain Transmission Status: Sent to [facility] Primary Care Physician: Mayur Lepe MD [Primary Care Provider] - Test Results: Test results from this visit will be discussed in further detail at your follow- up appointment, if applicable. Please Follow Up With: Jannet Prieto MD - call When: to be seen in 1-2 weeks
[2020-10-05] MEDS: Bupiv/Epi 0.25% 30 ML Vial (12:49)
--- NOTE | 2020-10-05 12:58 | RAD_ITS ---
STUDY: INTRAOPERATIVE INTRA CHOLANGIOGRAM. REASON FOR EXAM: Female, 30 years old. PAIN FLUOROSCOPY TIME (if supplied): ( 3.7 seconds ) minutes/seconds. One image was submitted. TECHNIQUE: Intraoperative cavagram was performed by the surgeon. Imaging was submitted. COMPARISON: None. FINDINGS: The intra and extrahepatic biliary ducts are unremarkable. No intraluminal filling defect is seen. There is free flow of contrast into the duodenum. RAD/Cholangiogram/ O R,Initial IMPRESSION: Unremarkable intraoperative cholangiogram. Electronically Signed: Km Almazan MD at 9:30 EST , Service support ,
--- NOTE | 2020-10-05 13:35 | OP.PCM_ITS ---
Report of Operation Date of Procedure: 10/05/20 Pre-Operative Diagnosis: cholelithiasis, RUQ abdominal pain Post-Operative Diagnosis: same Surgery/Procedure Performed:: laparoscopic cholecystectomy with cholangiograms Description of Surgical Findings:: normal cholangiograms crystal finisher: Lexi Mariano Type of Anesthesia:: General Anesthesiologist: Keon Brandt Specimen's removed: gallbladder and contents Estimated Blood Loss (mL): < 5 ml Fluids Replaced: 1100 ml RL Description of Procedure: After informed consent was given, the patient was brought to the Operating Room. Appropriate time out protocol was followed. The patient was placed in the supine position. The patient was then placed under general endotracheal anesthesia by the anesthesia provider. The abdomen was then prepped with a sterile surgical skin preparation and sterile surgical drapes were placed. The infraumbilical skin fold was grasped with penetrating clamps and the skin and subcutaneous tissues were infiltrated with 0.25% marcaine with epinephrine. A skin incision was then made with a 15 blade scalpel. The anterior abdominal wall was elevated and a Veress needle was carefully inserted into the intraabdominal cavity. It was checked to be in the proper position with a normal saline drop test. A CO2 pneumoperitoneum was then created. Once this was achieved, then the Veress needle was removed and an 11mm trocar was placed in its stead. A 10mm laparoscope was then inserted into the trocar and careful attention was directed to the intraabdominal contents. There was no evidence of injury to any intraabdominal organs from insertion of the Veress needle or the trocar. Under direct visualization, a 5mm subxiphoid trocar and two lateral 5mm right subcostal trocars were placed. The skin and subcutaneous tissues at these sites were infiltrated with 0.25% marcaine with epinephrine prior to placement of these trocars. Attention was then directed to the right upper quadrant of the abdomen. Graspers were placed in the lateral trocars to grasp the distal aspect of the gallbladder and direct it cephalad and to grasp the gallbladder at Mathis?s pouch and direct it laterally. Dissection then began on the proximal gallbladder continuing down to the area of the triangle of Calot to bluntly dissect out the cystic duct. The neck of the gallbladder was identified and blunt dissection continued to dissect out a segment of the cystic duct. A clip was then placed on the neck of the gallbladder. A small ductotomy was then made. A Ranfac catheter was brought in through a separate skin incision and placed into the cystic duct. An intraoperative cholangiogram was performed under fluoroscopy. The xray revealed no lesions in the common bile duct, arborization of the biliary tree, and good flow into the duodenum. The Ranfac catheter was then removed and two clips were placed proximal to the ductotomy and the cystic duct was then transected. The cystic artery was visualized and bluntly isolated and then two clips were placed proximally and one clip distally and then it was transected between the proximal and distal clips. The gallbladder was then from the liver bed using electrocautery. Once from the liver bed, it was placed in an Endobag and brought out via the umbilical port. It was then forwarded to pathology for analysis. The liver bed was carefully examined. There was no evidence of bile leakage or bleeding. The cystic duct stump and cystic artery stump had their clips intact and there was no evidence of bile leakage or bleeding. The remainder of the abdomen was grossly normal. The CO2 was released and all trocars removed intact. The periumbilical fascia was approximated with a [id number] 0 vicryl suture. All skin incision were closed with 4-0 monocryl in a subdermal fashion. Cavilol and Steristrips were used to reinforce the skin closure. Sterile dressings were applied to all wounds. Sponge, needle and instrument count was verified and correct at time of skin closure. The patient was extubated and brought to the Recovery Room in stable condition. - Complications none noted - Admit VTE Documentation VTE Present on Admission: Yes VTE Mechan Device Prophylaxis: SCD's
[2020-10-05] MEDS: oxyCODONE 5 MG Tablet PO (15:27)
== END 2020-10-05 16:16 | disposition home or self-care (01) ==
LOC: SDC 11:18 → AC 11:18
PROVIDERS: PCP Family Medicine; Referring Provider Surgery; Visit Provider Surgery
PROC: (CPT 47610; principal; 2020-10-05 12:40)
DX: K80.10 Calculus of gallbladder with chronic cholecystitis without obstruction (principal); I10 Essential (primary) hypertension; K21.9 Gastro-esophageal reflux disease without esophagitis; E66.01 Morbid (severe) obesity due to excess calories; Z68.39 Body mass index [BMI] 39.0-39.9, adult; Z20.822 Contact with and (suspected) exposure to COVID-19; Z79.899 Other long term (current) drug therapy; Z87.891 Personal history of nicotine dependence
CPT/HCPCS: 47563; 74300; 76000; 87426; 88304; C9803; J7050; J7120; J2405

== ENCOUNTER 2023-12-28 09:42 | Emergency (ER) | payer BC, SELFPAY ==
[2023-12-28 09:43] VITALS: BP 144/102; PULSE 92; RESP 18; TEMP 37.2; O2SAT 100; BMI 35.4
[2023-12-28] MEDS: Loperamide 2 MG Capsule 4 MG PO (10:17)
[2023-12-28] MEDS: 0.9% Normal Saline (1000mL) 1,000 ML 1000 ML IV (10:18)
--- NOTE | 2023-12-28 10:52 | ED.VIS.GI ---
HPI HPI - GI History of Present Illness Chief Complaint: Abd Pain Detail of Chief Complaint: Abdominal pain with nausea, vomiting diarrhea Informant: patient Abdominal Pain/Flank Pain Onset: Days (Onset 4 to 5 days ago) Context: Sudden Onset Timing: Intermittent Quality: Cramping Location: Diffuse Current Severity: Gone Maximum Severity: Severe (Associated with diarrhea) Worsened by: - (When patient has diarrhea) Relieved by: Nothing Nausea/Vomiting/Emesis GI Symptom: Positive for Nausea and Vomiting (X 2 since onset of illness) Diarrhea/Melena/Hematochezia GI Symptom: Positive for Diarrhea (10 times since 1700 yesterday afternoon. She has noted mucus in the stool as well.); Negative for Melena or Hematochezia Associated Symptoms Associated Symptoms: Negative for Dysuria, Frequency, Hematuria or Urgency Narrative Narrative: Patient is a 33-year-old female. She was sent from the urgent care because of nausea, vomiting diarrhea for the past 4 to 5 days. She endorses thirst, dry mouth and orthostatic lightheadedness. Her son was ill. He was only ill for 2 days. Of note she has history of hypertension and is on a combination pill of lisinopril and hydrochlorothiazide. She has had hypertension for some time. She reports normal renal function. She denies hematemesis. She denies melena or maroon-colored diarrhea. She has not been on an antibiotic in the past month. There is no history in the family or patient of inflammatory bowel disorder. Patient denies fever, chills night sweats. Patient does complain of intermittent muscle cramps but denies myalgias or arthralgias. She has not noted a rash. No recent travel. Prior similar symptoms: Yes Recent Illness/Hospitalization: No [facility] Medical History (Updated 12/28/23 @ 12:[address] Carson Louie MD) Essential (primary) hypertension History of abnormal cervical Pap smear Attention deficit disorder History of pre-eclampsia Hepatic steatosis Cholelithiasis Morbid obesity Anxiety Depression Endometriosis GERD (gastroesophageal reflux disease) BPPV (benign paroxysmal positional vertigo) Anxiety Request for sterilization Gave to child recently Hypertension affecting in third trimester SOB (shortness of breath) H/O hemorrhoids Home Medications ?Medication ?Instructions ?Recorded ?Last Taken ?Type pantoprazole 40 mg tablet,delayed 40 mg PO DAILY #30 tabs 06/13/20 10/05/20 Rx release lisinopril 10 1 ea PO DAILY #30 tabs 08/06/20 Unknown Rx mg-hydrochlorothiazide 12.5 mg tablet escitalopram oxalate 20 mg tablet 20 mg PO DAILY 09/11/20 Unknown History (Lexapro) sumatriptan succinate 50 mg tablet 50 mg PO .X1 PRN migraine 09/16/20 Unknown History lisinopril 10 mg tablet 10 mg PO DAILY #90 tabs 09/22/20 10/05/20 Rx ketorolac 10 mg tablet 10 mg PO Q8H PRN PRN Pain #9 tabs 10/02/20 Unknown Rx ondansetron 4 mg disintegrating 4 mg PO Q6H PRN PRN Nausea #10 tabs 10/02/20 Unknown Rx tablet Allergy/AdvReac Type Severity Reaction Status Date / Time adhesive tape Allergy Hives Verified 12/28/23 09:42 cephalexin monohydrate (From Allergy Hives Verified 12/28/23 09:42 Keflex) sertraline (From Zoloft) AdvReac Unknown unknown Verified 12/28/23 09:42 Family History Mother Heart disease Diabetes Anxiety Depression Fibromyalgia Father Hypertension Son ADHD Surgical History H/O laparoscopy History of salpingectomy History of use of contraceptive intrauterine device (IUD) History of colposcopy History of ankle surgery Social History Smoking Status: Former smoker quit date: 01/07/12 pack-years: 1 alcohol intake: never substance use type: does not use caffeine: Yes ROS ROS ED Constitutional Constitutional ED: Denies chills, fever(s), subjective, sweats or weight loss ENT ENT ED: Reports rhinorrhea and other Details: Initially she reported upper respiratory like symptoms. Cardiovascular Cardiovascular: Denies chest pain, orthopnea or palpitations Respiratory/Chest Respiratory/Chest: Denies cough, dyspnea, dyspnea on exertion or orthopnea Gastrointestinal Gastrointestinal: Reports abdominal pain, diarrhea, nausea and vomiting; Denies constipation or melena Genitourinary Genitourinary ED: Denies dysuria, hematuria or urinary frequency Musculoskeletal Musculoskeletal: Denies arthralgias or myalgias Integumentary Denies rash Neurologic Neurologic: Denies headache(s) or paresthesias Hematologic/Lymphatic Hematologic/Lymphatic: Denies easy bleeding or easy bruising EXAM Physical Exam Const Vital Signs: 12/28/23 09:43 12/28/23 11:42 Temperature 99 F Temperature Source Temporal Pulse Rate 92 98 Respiratory Rate 18 16 Blood Pressure 144/102 H 140/76 H Blood Pressure Mean 116 97 Pulse Ox 100 98 Oxygen Delivery Method Room Air Room Air Positive well nourished and well developed Constitutional Narrative: BMI is 35.5. General Appearance ED: well developed and NAD; Negative for pallor HEENT Reports dry mucous membranes normocephalic and atraumatic Mouth ED: Yes dry mucous membranes Mouth: dry mucous membranes Eyes PERRL and EOMs intact bilaterally General Eye ED: Negative for scleral icterus Neck no lymphadenopathy, supple and no JVD Resp normal respiratory effort and clear to auscultation bilaterally Cardio regular rate, regular rhythm, S1 normal heart sound, S2 normal heart sound and no murmurs GI non-distended and no masses; Negative for non-tender Inspection: Negative for abdominal distention Auscultation: normoactive bowel sounds Palpation: soft and tender LLQ and LUQ; Negative for guarding, rigid, hepatomegaly, splenomegaly, hernia, mass or pulsatile mass Back/Spine no CVA tenderness Extremity full ROM General Extremety ED: Negative for edema or tenderness General Extremity: Negative for edema Neuro CN's II-XII intact bilaterally and moves all extremities Sensorium / Orientation: alert Psych mental status grossly normal and thought process normal Skin no wounds General Skin Exam: Negative for jaundice or pallor Lesions: no lesions Rashes: no rashes MDM MDM MDM Narrative Medical decision making narrative: Suspect patient has dehydration from nausea from diarrhea and this is a viral illness. Because patient has history hypertension on thiazide diuretic will obtain basic metabolic panel to assess electrolytes and specifically rule out hypokalemia. Also to assess renal function CO2 anion gap. 1 L of normal saline was ordered. Imodium was ordered for her diarrhea. Since she has not had vomiting in 24 to 48 hours and antiemetic was not ordered. Will review prior records to determine her renal function. History & Record Review Additional record(s) reviewed:: Prior inpatient record (Cholecystectomy October 2020. She was seen by Dr. Jannet weighing.), Prior outpatient record (Patient's had several visits in 2020 for abdominal pain and concussion.) and Prior labs (Patient had normal renal function per last basic metabolic panel which was obtained October 02, 2020.) Lab Data Attestation: I reviewed the patient's lab results. Lab results narrative: Electrolyte panel reveals a CO2 of 20 with a normal anion gap. BUN and creatinine are normal. Potassium is normal. Labs: Laboratory Results - last 24 hr 12/28/23 12/28/23 10:20 10:48 Sodium Cancelled 139 Potassium Cancelled 3.8 Chloride Cancelled 113 H Carbon Dioxide Cancelled 20.0 L Anion Gap Cancelled 6 BUN Cancelled 12 Creatinine Cancelled 0.76 Estim Creat Clear Calc Cancelled 108.47 Est GFR (MDRD) Af Amer Cancelled 112 Est GFR (MDRD) Non-Af Cancelled 93 BUN/Creatinine Ratio Cancelled 15.8 Glucose Cancelled 89 Calcium Cancelled 8.4 L Treatment and Re-Evaluation :: Patient was reassessed at 1205. Patient has urinated. Patient states she feels markedly better. She was instructed take Imodium if she continued has loose diarrhea and encouraged increased p.o. intake. Discharge Plan Triage Chief Complaint: Abd Pain ED Provider: Carson Louie Dx/Rx/DC Orders Clinical Impression: Diarrhea, Acute dehydration, Abdominal pain, colicky, History of hypertension, Sinus tachycardia Instructions: ED Vomit Diarrhea Nonspec Adult Prescriptions: No Action escitalopram oxalate [Lexapro] 20 mg tablet 20 mg PO DAILY lisinopril 10 mg tablet 10 mg PO DAILY Qty: 90 3RF pantoprazole 40 MG tablet 40 mg PO DAILY Qty: 30 0RF lisinopril-hydrochlorothiazide 1 EACH tablet 1 ea PO DAILY Qty: 30 0RF sumatriptan succinate 50 MG tablet 50 mg PO .X1 PRN ondansetron 4 MG tablet 4 mg PO Q6H PRN PRN (Reason: Nausea) Qty: 10 0RF ketorolac 10 MG tablet 10 mg PO Q8H PRN PRN (Reason: Pain) Qty: 9 0RF Stand Alone Forms: ED Work / School Excuse Primary Care Provider: Mayur Lepe Referrals: Mayur Lepe MD [Primary Care Provider] - 3-5 Days if not improving Activity Restrictions/Additional Instructions: You may take 1 Imodium with each loose diarrhea up to a total of 6 tablets in 24 hours. Increase your fluid intake Advance diet as tolerated Print Language: Ivorian Disposition Disposition: Home, Self Care
[2023-12-28 11:14] LABS: Anion Gap 6 (5-15); BUN 12 mg/dL (7-18); BUN/Creat Ratio 15.8 RATIO (10-20); Calcium,Total 8.4 mg/dL (8.5-10.1); Chloride 113 mmol/L (98-107); Creatinine, Serum 0.76 mg/dL (0.55-1.02); EST Glomerular Filtration Rate 93 mL/min (>60); Est Glom Filt Rate - Afr Amer 112 mL/min (>60); Estimated Creatinine Clearance 108.47 ml/min; Glucose 89 mg/dL (74-106); Potassium 3.8 mmol/L (3.5-5.1); Sodium Level 139 mmol/L (136-145)
[2023-12-28 11:42] VITALS: BP 140/76; PULSE 98; RESP 16; O2SAT 98
[2023-12-28 12:17] VITALS: BP 145/97; PULSE 77; RESP 14; TEMP 36.1; O2SAT 99
== END 2023-12-28 12:17 | disposition home or self-care (01) ==
PROVIDERS: Emergency Provider Emergency Medicine; PCP Family Medicine; Visit Provider Emergency Medicine
DX: R10.12 Left upper quadrant pain (principal); R10.32 Left lower quadrant pain; R19.7 Diarrhea, unspecified; R00.0 Tachycardia, unspecified; E86.0 Dehydration; I10 Essential (primary) hypertension; Z79.899 Other long term (current) drug therapy; Z87.891 Personal history of nicotine dependence
CPT/HCPCS: 80048; 96360; 99284; J7030; A4216